=== PATIENT | female | born 1965 | race Caucasian/White ===

== ENCOUNTER 2017-06-01 20:09 | Emergency (ER) | payer MEDICAID ==
[~2017-06-01] VITALS: Ht 157.5 cm; Wt 58.0 kg
[~2017-06-01 20:09] MED LIST: CEPH500C5 PO; CLIN-79 PO; DEXT15SY PO; HYDR-569 PO; IBUP-1985 PO; INDO25CA PO; NAPR500T6 PO; ONDA4TAB6 PO
[2017-06-01] MEDS ORDERED: ondansetron/PF 4mg/2ml inj IM ONE (20:55)
[2017-06-01] MEDS ORDERED: HYDR-569 PO (20:57)
[2017-06-01] MEDS ORDERED: IBUP-1984 PO (20:59)
[2017-06-01] MEDS ORDERED: BUPIVAcaine/PF 7.5mg/ml (0.75%) 10ml vial IJ ONE (21:10)
[2017-06-01] MEDS ORDERED: BUPIVAcaine/PF 2.5mg/ml (0.25%) 10ml vial IJ ONE (21:40)
[2017-06-01 22:13] VITALS: BP 145/88
== END 2017-06-01 22:15 | disposition home or self-care (01) ==
LOC: ER 20:10
DX: K04.7 Periapical abscess without sinus (principal); G43.909 Migraine, unspecified, not intractable, without status migrainosus; E11.9 Type 2 diabetes mellitus without complications; F12.10 Cannabis abuse, uncomplicated; F15.10 Other stimulant abuse, uncomplicated; F17.200 Nicotine dependence, unspecified, uncomplicated; Z59.0 Homelessness; Z86.14 Personal history of Methicillin resistant Staphylococcus aureus infection
CPT/HCPCS: 64400; 96372; 99284; J2270; J2405; J3490

== ENCOUNTER 2018-02-02 17:11 | Emergency (ER) | payer MEDICAID ==
[~2018-02-02] VITALS: Ht 162.6 cm; Wt 63.0 kg
[~2018-02-02 17:11] MED LIST changes: +BISA-155 PO; -CLIN-79 PO; +CLIN150C8 PO; -INDO25CA PO; +INDO25CA18 PO; +MAGN296S50 PO; +POLY119P2 PO
[2018-02-02] MEDS ORDERED: normal saline 1000ML IV soln IVB ONE (19:35)
[2018-02-02 20:05] LABS: BASOPHILS % (AUTO) 0.3 % (0-1); EOSINOPHILS # (AUTO) 0.2 X10'3 (0-0.9); EOSINOPHILS % (AUTO) 2.3 % (0-6); HEMATOCRIT 33.2 % (35.0-45.0); HEMOGLOBIN 11.4 g/dl (12.0-16.0); LYMPHOCYTES # (AUTO) 2.4 X10'3 (1.1-4.8); LYMPHOCYTES % (AUTO) 27.5 % (21-51); MEAN CORPUSCULAR HEMOGLOBIN 31.2 PG (27.0-31.0); MEAN CORPUSCULAR HGB CONC 34.5 % (33.0-36.5); MEAN CORPUSCULAR VOLUME 90.4 FL (78-98); MEAN PLATELET VOLUME 8.1 FL (7.4-10.4); MONOCYTES % (AUTO) 11.3 % (2-12); NEUTROPHILS # (AUTO) 5.1 X10'3 (1.8-7.7); NEUTROPHILS % (AUTO) 58.6 % (42-75); PLATELET COUNT 131 X10'3 (140-440); RED BLOOD COUNT 3.67 X10'6 (4.20-5.60); RED CELL DISTRIBUTION WIDTH 13.6 % (11.5-14.5); WHITE BLOOD COUNT 8.8 X10'3 (4.5-11.0)
[2018-02-02 20:17] LABS: INR 1.1 INR; PARTIAL THROMBOPLASTIN TIME 32 SECONDS (22-32); PROTHROMBIN TIME 11.2 SECONDS (9.0-12.0)
[2018-02-02 20:17] LABS: URINE HCG NEGATIVE (NEG)
[2018-02-02 20:27] LABS: CLARITY,URINE SLIGHTLY CLOUDY (Clear); COLOR,URINE YELLOW (Yellow); GLUCOSE, URINE NEGATIVE (Neg); KETONES,URINE NEGATIVE (Neg); LEUKOCYTE ESTERASE ,URINE TRACE (Neg); NITRITES, URINE POSITIVE (Neg); OCCULT BLOOD,URINE TRACE-INTACT (Neg); PH,URINE 7.5 (4.8-8.0); PROTEIN,URINE NEGATIVE (Neg)
[2018-02-02 20:31] LABS: URINE AMPHETAMINE SCREEN POSITIVE (Neg); URINE BARBITUATE SCREEN NEGATIVE (Neg); URINE BENZODIAZEPINES SCREEN NEGATIVE (Neg); URINE CANNABINOID SCREEN POSITIVE (Neg); URINE COCAINE SCREEN NEGATIVE (Neg); URINE METHADONE SCREEN NEGATIVE (Neg); URINE OPIATE SCREEN NEGATIVE (Neg); URINE PHENCYCLIDINE SCREEN NEGATIVE (Neg)
[2018-02-02 20:32] LABS: ALANINE AMINOTRANSFERASE 84 U/L (12-78); ALBUMIN 2.7 G/DL (3.4-5.0); ALBUMIN/GLOBULIN RATIO 0.7 (1.1-1.5); ALKALINE PHOSPHATASE 94 IU/L (46-116); ANION GAP 8 (8-16); ASPARTATE AMINO TRANSFERASE 70 U/L (10-37); BILIRUBIN,TOTAL 0.5 MG/DL (0.1-1.0); BLOOD UREA NITROGEN 8 MG/DL (7-18); BUN/CREATININE RATIO 13.1 (6.6-38.0); CALCIUM 7.6 MG/DL (8.5-10.1); CHLORIDE 103 MMOL/L (99-107); CREATININE 0.61 MG/DL (0.40-0.90); GLUCOSE 138 MG/DL (70-104); LIPASE 234 U/L (73-393); MAGNESIUM 1.6 MG/DL (1.5-2.4); POTASSIUM 3.7 MMOL/L (3.5-5.1); SODIUM 135 MMOL/L (135-145); TOTAL CARBON DIOXIDE 24.4 MMOL/L (24-32); TOTAL PROTEIN 6.8 G/DL (6.4-8.2); eGFR > 90 ML/MIN
[2018-02-02 20:46] LABS: UA COLLECTION TYPE CLN CATCH MIDSTREAM
[2018-02-02 20:50] LABS: RBC,URINE 0-2 /HPF (0-2)
[2018-02-02 20:51] LABS: BACTERIA,URINE 4+ /HPF (Neg); SQUAMOUS EPITHELIAL CELL,UR MODERATE /LPF (FEW)
[2018-02-02] MEDS ORDERED: NITR100C6 PO (20:57)
[2018-02-02] MEDS ORDERED: IBUP-1984 PO (20:57)
[2018-02-02 21:34] VITALS: BP 143/90
== END 2018-02-02 21:46 | disposition home or self-care (01) ==
LOC: ER 17:11
DX: N39.0 Urinary tract infection, site not specified (principal); F15.90 Other stimulant use, unspecified, uncomplicated; G43.909 Migraine, unspecified, not intractable, without status migrainosus; E11.9 Type 2 diabetes mellitus without complications; M19.90 Unspecified osteoarthritis, unspecified site; G89.29 Other chronic pain; Z86.14 Personal history of Methicillin resistant Staphylococcus aureus infection; F12.90 Cannabis use, unspecified, uncomplicated; Z79.2 Long term (current) use of antibiotics; Z79.899 Other long term (current) drug therapy; Z59.0 Homelessness; Z56.0 Unemployment, unspecified
CPT/HCPCS: 36415; 71045; 71046; 80053; 80305; 81001; 81025; 83605; 83690; 83735; 84145; 85025; 85610; 85730; 87040; 87077; 87088; 87186; 93005; 96360; 96361; 99285; J7030

== ENCOUNTER 2019-01-10 21:16 | Emergency (ER) | payer MEDICAID ==
[~2019-01-10] VITALS: Ht 162.6 cm; Wt 60.9 kg
[~2019-01-10 21:16] MED LIST changes: -CEPH500C5 PO; +HYDR-4383 PO; -HYDR-569 PO; +INDO-12 PO; -INDO25CA18 PO; +NITR100C6 PO
[2019-01-10] MEDS ORDERED: LIDOcaine 1% 30ml preserv. free vial IJ ONE (22:00)
[2019-01-10] MEDS ORDERED: LORazepam 2 mg/ml vial IM ONE (22:00)
[2019-01-10] MEDS ORDERED: bacitracin 15gm ointment TP ONE (22:00)
[2019-01-10] MEDS ORDERED: HYDROcodone/acetaminophen 5mg/325mg tablet PO ONE (22:00)
[2019-01-10] MEDS ORDERED: TETanus/Pertussis (Acell)/Diphther VAC/PF (Tdap-Adult) 0.5ml syringe IM ONE (22:00)
[2019-01-10] MEDS ORDERED: rabies immune globulin/PF 150 unit/ml inj IM ONE (22:30)
[2019-01-10] MEDS ORDERED: rabies vaccine (PCEC)/PF 2.5 unit kit IM ONE (22:30)
--- NOTE | 2019-01-10 22:45 | NUR ---
Patient arrived to ED by POV driven by friend. Stated that she was bitten by a dog "by [place]" @ aprox 2130 the patient was swimming in the area. Injuries to the right hand. The dog is unkown to the patient, she does not know if it is a stray or not. No further information given. Patient was extremely upset, crying out in pain not providing detailed information. Unable to hold still to allow for thourough exam of right hand. Patient given ativan per MD order.
[2019-01-10] MEDS ORDERED: HYDR-4383 PO (23:04)
[2019-01-10] MEDS ORDERED: AMOX-419 PO (23:04)
--- NOTE | 2019-01-10 23:40 | NUR ---
Patient has been treated per MD order, but it not awake or alert enough for discharge at this time. Patient is on med hold until able to safely discharge.
[2019-01-11 06:26] VITALS: BP 164/100
== END 2019-01-11 08:00 | disposition home or self-care (01) ==
LOC: ER 21:16
DX: S61.431A Puncture wound without foreign body of right hand, initial encounter (principal); S61.451A Open bite of right hand, initial encounter; G43.909 Migraine, unspecified, not intractable, without status migrainosus; E11.9 Type 2 diabetes mellitus without complications; M19.90 Unspecified osteoarthritis, unspecified site; G89.29 Other chronic pain; F12.90 Cannabis use, unspecified, uncomplicated; F15.90 Other stimulant use, unspecified, uncomplicated; Z59.0 Homelessness; Z56.0 Unemployment, unspecified; Z98.890 Other specified postprocedural states; Z86.14 Personal history of Methicillin resistant Staphylococcus aureus infection; Z79.899 Other long term (current) drug therapy; W54.0XXA Bitten by dog, initial encounter; Y93.89 Activity, other specified; Y92.89 Other specified places as the place of occurrence of the external cause; Y99.9 Unspecified external cause status
CPT/HCPCS: 29125; 73130; 90375; 90471; 90472; 90675; 96372; 99283; J2001; J2060

== ENCOUNTER 2019-05-09 08:02 | Emergency (ER) | payer MEDICAID ==
[~2019-05-09] VITALS: Ht 162.6 cm; Wt 57.8 kg
[2019-05-09] MEDS ORDERED: ketorolac tromethamine 15mg/ml inj. IM ONE (08:50)
[2019-05-09] MEDS ORDERED: triamcinolone acetonide 40mg/ml inj IM ONE (08:50)
[2019-05-09] MEDS ORDERED: MUPI22OI30 TOP (09:03)
[2019-05-09] MEDS ORDERED: HYDR28CR14 TOP (09:03)
[2019-05-09] MEDS ORDERED: IBUP-1985 PO (09:09)
[2019-05-09] MEDS ORDERED: ACET-2144 PO (09:09)
[2019-05-09 09:14] VITALS: BP 123/65
--- NOTE | 2019-05-09 09:21 | NUR ---
ADMINISTER MEDICATIONS ORDERED. PT CLEARED FOR DC. GIVEN PHONE TO CALL FOR RIDE AND TWO SACK LUNCHES.
== END 2019-05-09 09:25 | disposition home or self-care (01) ==
LOC: ER 08:03
DX: L23.7 Allergic contact dermatitis due to plants, except food (principal); K08.89 Other specified disorders of teeth and supporting structures; G43.909 Migraine, unspecified, not intractable, without status migrainosus; E11.9 Type 2 diabetes mellitus without complications; M19.90 Unspecified osteoarthritis, unspecified site; G89.29 Other chronic pain; F12.90 Cannabis use, unspecified, uncomplicated; F15.90 Other stimulant use, unspecified, uncomplicated; F10.99 Alcohol use, unspecified with unspecified alcohol-induced disorder; Z86.14 Personal history of Methicillin resistant Staphylococcus aureus infection; Z86.19 Personal history of other infectious and parasitic diseases; Z59.0 Homelessness; Z56.0 Unemployment, unspecified; Z79.899 Other long term (current) drug therapy; Y90.9 Presence of alcohol in blood, level not specified
CPT/HCPCS: 96372; 99283; J1885; J3301

== ENCOUNTER 2019-06-04 01:03 | Emergency (ER) | payer MEDICAID ==
[~2019-06-04] VITALS: Ht 162.6 cm; Wt 60.0 kg
[~2019-06-04 01:03] MED LIST changes: +HYDR28CR14 TOP; -MAGN296S50 PO; +MAGN296S70 PO
[2019-06-04 01:10] VITALS: BP 155/87
[2019-06-04] MEDS ORDERED: LIDOcaine 1% w/epiNEPHrine 1:200,000 30ml vial SQ ONE (03:20)
[2019-06-04] MEDS ORDERED: SULF1TAB49 PO (03:29)
[2019-06-04] MEDS ORDERED: acetaminophen 325mg tablet PO ONE (04:00)
== END 2019-06-04 04:16 | disposition home or self-care (01) ==
LOC: ER 01:05
DX: L02.811 Cutaneous abscess of head [any part, except face] (principal); L03.811 Cellulitis of head [any part, except face]; G43.909 Migraine, unspecified, not intractable, without status migrainosus; E11.9 Type 2 diabetes mellitus without complications; G89.29 Other chronic pain; M19.90 Unspecified osteoarthritis, unspecified site; F10.99 Alcohol use, unspecified with unspecified alcohol-induced disorder; F12.90 Cannabis use, unspecified, uncomplicated; F15.90 Other stimulant use, unspecified, uncomplicated; Z86.19 Personal history of other infectious and parasitic diseases; Z86.14 Personal history of Methicillin resistant Staphylococcus aureus infection; Z59.0 Homelessness; Z56.0 Unemployment, unspecified; Z79.899 Other long term (current) drug therapy; Y90.9 Presence of alcohol in blood, level not specified
CPT/HCPCS: 10060; 99283

== ENCOUNTER 2019-07-25 17:25 | Emergency (ER) | payer MEDICAID ==
[~2019-07-25] VITALS: Ht 162.6 cm; Wt 60.0 kg
[2019-07-25 18:16] LABS: CLARITY,URINE CLOUDY (Clear); COLOR,URINE YELLOW (Yellow); GLUCOSE, URINE 250 mg/dl (Neg); KETONES,URINE NEGATIVE (Neg); LEUKOCYTE ESTERASE ,URINE TRACE (Neg); NITRITES, URINE POSITIVE (Neg); OCCULT BLOOD,URINE NEGATIVE (Neg); PH,URINE 6.5 (4.8-8.0); PROTEIN,URINE NEGATIVE (Neg)
[2019-07-25 18:18] LABS: BASOPHILS # (AUTO) 0.1 X10'3 (0-0.2); BASOPHILS % (AUTO) 1.4 % (0-1); EOSINOPHILS # (AUTO) 0.1 X10'3 (0-0.9); EOSINOPHILS % (AUTO) 2.8 % (0-6); HEMATOCRIT 42.6 % (35.0-45.0); HEMOGLOBIN 14.7 g/dl (12.0-16.0); LYMPHOCYTES # (AUTO) 1.8 X10'3 (1.1-4.8); LYMPHOCYTES % (AUTO) 36.1 % (21-51); MEAN CORPUSCULAR HEMOGLOBIN 32.1 PG (27.0-31.0); MEAN CORPUSCULAR HGB CONC 34.6 g/dL (33.0-36.5); MEAN CORPUSCULAR VOLUME 92.8 FL (78-98); MEAN PLATELET VOLUME 8.7 FL (7.4-10.4); MONOCYTES # (AUTO) 0.4 X10'3 (0-0.9); MONOCYTES % (AUTO) 7.8 % (2-12); NEUTROPHILS # (AUTO) 2.5 X10'3 (1.8-7.7); NEUTROPHILS % (AUTO) 51.9 % (42-75); PLATELET COUNT 88 X10'3 (140-440); RED BLOOD COUNT 4.59 X10'6 (4.20-5.60); RED CELL DISTRIBUTION WIDTH 14.4 % (11.5-14.5); WHITE BLOOD COUNT 4.9 X10'3 (4.5-11.0)
[2019-07-25 18:23] LABS: UA COLLECTION TYPE CLN CATCH MIDSTREAM
[2019-07-25 18:27] LABS: BACTERIA,URINE 4+ /HPF (Neg); MUCUS STRANDS FEW /LPF (Neg); RBC,URINE 0-2 /HPF (0-2); SQUAMOUS EPITHELIAL CELL,UR MODERATE /LPF (FEW); WBC CLUMPS,URINE FEW /HPF (NEGATIVE)
[2019-07-25 18:28] LABS: ALANINE AMINOTRANSFERASE 258 U/L (12-78); ALBUMIN 3.3 G/DL (3.4-5.0); ALBUMIN/GLOBULIN RATIO 0.8 (1.1-1.5); ALKALINE PHOSPHATASE 131 IU/L (46-116); ANION GAP 8 (8-16); ASPARTATE AMINO TRANSFERASE 220 U/L (10-37); BILIRUBIN,TOTAL 0.7 MG/DL (0.1-1.0); BLOOD UREA NITROGEN 10 MG/DL (7-18); BUN/CREATININE RATIO 14.7 (6.6-38.0); CALCIUM 8.8 MG/DL (8.5-10.1); CHLORIDE 105 MMOL/L (99-107); CREATININE 0.68 MG/DL (0.40-0.90); GLUCOSE 256 MG/DL (70-104); LIPASE 204 U/L (73-393); POTASSIUM 3.9 MMOL/L (3.5-5.1); SODIUM 140 MMOL/L (135-145); TOTAL CARBON DIOXIDE 27.3 MMOL/L (24-32); TOTAL PROTEIN 7.5 G/DL (6.4-8.2); eGFR > 90 ML/MIN
[2019-07-25 18:41] LABS: LARGE PLATELETS FEW; PLATELET ESTIMATE DECREASED
[2019-07-25] MEDS ORDERED: CefTRIAXone 1000mg IM Kit (w/lidocaine diluent) IM ONE (19:30)
[2019-07-25] MEDS ORDERED: CefTRIAXone 250MG IM Kit w/LIDOcaine IM ONE (19:35)
[2019-07-25] MEDS ORDERED: SULF1TAB49 PO (19:35)
[2019-07-25 20:07] VITALS: BP 156/98
== END 2019-07-25 20:01 | disposition home or self-care (01) ==
LOC: ER 17:26
DX: N39.0 Urinary tract infection, site not specified (principal); G43.909 Migraine, unspecified, not intractable, without status migrainosus; E11.9 Type 2 diabetes mellitus without complications; M19.90 Unspecified osteoarthritis, unspecified site; F17.200 Nicotine dependence, unspecified, uncomplicated; F12.90 Cannabis use, unspecified, uncomplicated; F15.90 Other stimulant use, unspecified, uncomplicated; Z86.14 Personal history of Methicillin resistant Staphylococcus aureus infection; Z86.19 Personal history of other infectious and parasitic diseases; Z59.0 Homelessness; Z56.0 Unemployment, unspecified; Z98.890 Other specified postprocedural states; Z79.899 Other long term (current) drug therapy
CPT/HCPCS: 36415; 80053; 81001; 83690; 85025; 87088; 96372; 99283; J0696; 87077; 87186

== ENCOUNTER 2020-02-18 21:54 | Emergency (ER) | payer MEDICAID ==
[~2020-02-18] VITALS: Ht 162.6 cm; Wt 60.0 kg
[2020-02-18 22:02] VITALS: BP 154/93
[2020-02-18 22:44] LABS: CLARITY,URINE SLIGHTLY CLOUDY (Clear); GLUCOSE, URINE NEGATIVE (Neg); KETONES,URINE NEGATIVE (Neg); LEUKOCYTE ESTERASE ,URINE SMALL (Neg); NITRITES, URINE POSITIVE (Neg); OCCULT BLOOD,URINE TRACE-INTACT (Neg); PH,URINE 6.5 (4.8-8.0); PROTEIN,URINE NEGATIVE (Neg); UROBILINOGEN,URINE >=8.0 E.U/dL (0.2-1.0)
[2020-02-18 22:52] LABS: COLOR,URINE DARK YELLOW (Yellow); UA COLLECTION TYPE NON-SPECIFIED
[2020-02-18 22:53] LABS: BACTERIA,URINE 4+ /HPF (Neg); RBC,URINE 0-2 /HPF (0-2); WBC,URINE 20-30 /HPF (0-4)
[2020-02-18 22:54] LABS: MUCUS STRANDS MODERATE /LPF (Neg); SQUAMOUS EPITHELIAL CELL,UR FEW /LPF (FEW); WBC CLUMPS,URINE FEW /HPF (NEGATIVE)
[2020-02-18] MEDS ORDERED: ACET-3068 PO (22:54)
== END 2020-02-18 23:37 | disposition home or self-care (01) ==
LOC: ER 21:54
DX: S30.814A Abrasion of vagina and vulva, initial encounter (principal); K02.9 Dental caries, unspecified; E11.9 Type 2 diabetes mellitus without complications; M19.90 Unspecified osteoarthritis, unspecified site; G89.29 Other chronic pain; F17.200 Nicotine dependence, unspecified, uncomplicated; F12.90 Cannabis use, unspecified, uncomplicated; F15.90 Other stimulant use, unspecified, uncomplicated; Z86.19 Personal history of other infectious and parasitic diseases; Z86.14 Personal history of Methicillin resistant Staphylococcus aureus infection; Z98.890 Other specified postprocedural states; Z59.0 Homelessness; Z56.0 Unemployment, unspecified; W45.8XXA Other foreign body or object entering through skin, initial encounter; Y93.89 Activity, other specified; Y92.89 Other specified places as the place of occurrence of the external cause; Y99.8 Other external cause status
CPT/HCPCS: 81001; 87088; 99283

== ENCOUNTER 2020-03-31 04:43 | Emergency (ER) | payer MEDICAID ==
[~2020-03-31] VITALS: Ht 162.6 cm; Wt 58.7 kg
[2020-03-31] MEDS ORDERED: proCHLORperazine 10 MG/2 ml inj IV ONE (05:50)
[2020-03-31] MEDS ORDERED: normal saline 1000ml 1,000 ML IV ONE (05:50)
[2020-03-31] MEDS ORDERED: morphine 4 MG/ML inj SYRINge IV ONE (05:50)
[2020-03-31] MEDS ORDERED: clindamycin 600mg/D5W 50ml 50 ML IV ONE (05:55)
[2020-03-31] MEDS ORDERED: levoFLOXACIN-Levaquin 750MG/D5 150 ML IV STA (05:55)
[2020-03-31 06:38] VITALS: BP 132/71
[2020-03-31 07:07] LABS: BASOPHILS % (AUTO) 0.4 % (0-1); EOSINOPHILS # (AUTO) 0.2 X10'3 (0-0.9); EOSINOPHILS % (AUTO) 3.2 % (0-6); HEMATOCRIT 35.6 % (35.0-45.0); HEMOGLOBIN 12.3 g/dl (12.0-16.0); LYMPHOCYTES # (AUTO) 1.4 X10'3 (1.1-4.8); LYMPHOCYTES % (AUTO) 26.1 % (21-51); MEAN CORPUSCULAR HEMOGLOBIN 32.4 PG (27.0-31.0); MEAN CORPUSCULAR HGB CONC 34.5 g/dL (33.0-36.5); MEAN CORPUSCULAR VOLUME 93.9 FL (78-98); MEAN PLATELET VOLUME 8.8 FL (7.4-10.4); MONOCYTES # (AUTO) 0.6 X10'3 (0-0.9); MONOCYTES % (AUTO) 10.2 % (2-12); NEUTROPHILS # (AUTO) 3.3 X10'3 (1.8-7.7); NEUTROPHILS % (AUTO) 60.1 % (42-75); PLATELET COUNT 76 X10'3 (140-440); RED BLOOD COUNT 3.79 X10'6 (4.20-5.60); RED CELL DISTRIBUTION WIDTH 13.7 % (11.5-14.5); WHITE BLOOD COUNT 5.5 X10'3 (4.5-11.0)
[2020-03-31] MEDS ORDERED: iohexol 300mg/ml 100ml inj. ONE (07:07)
[2020-03-31 07:17] LABS: ALANINE AMINOTRANSFERASE 170 U/L (12-78); ALBUMIN/GLOBULIN RATIO 0.8 (1.1-1.5); ALKALINE PHOSPHATASE 106 IU/L (46-116); ANION GAP 8 (8-16); ASPARTATE AMINO TRANSFERASE 151 U/L (10-37); BILIRUBIN,TOTAL 0.8 MG/DL (0.1-1.0); BLOOD UREA NITROGEN 9 MG/DL (7-18); CALCIUM 8.2 MG/DL (8.5-10.1); CHLORIDE 107 MMOL/L (99-107); CREATININE 0.53 MG/DL (0.40-0.90); GLUCOSE 225 MG/DL (70-104); POTASSIUM 4.1 MMOL/L (3.5-5.1); SODIUM 140 MMOL/L (135-145); TOTAL CARBON DIOXIDE 24.6 MMOL/L (24-32); eGFR > 90 ML/MIN
[2020-03-31 08:53] LABS: CLARITY,URINE CLOUDY (Clear); COLOR,URINE YELLOW (Yellow); GLUCOSE, URINE 250 mg/dl (Neg); KETONES,URINE TRACE mg/dl (Neg); LEUKOCYTE ESTERASE ,URINE SMALL (Neg); NITRITES, URINE NEGATIVE (Neg); OCCULT BLOOD,URINE LARGE (Neg); PROTEIN,URINE 30 mg/dl (Neg); UA COLLECTION TYPE VOIDED
[2020-03-31 08:58] LABS: SQUAMOUS EPITHELIAL CELL,UR MODERATE /LPF (FEW)
[2020-03-31 08:59] LABS: BACTERIA,URINE 4+ /HPF (Neg); RBC,URINE 50-100 /HPF (0-2)
[2020-03-31 09:00] LABS: TRANSITIONAL EPI CELLS,URINE FEW /HPF
== END 2020-03-31 09:40 | disposition home or self-care (01) ==
LOC: ER 04:44
DX: K08.89 Other specified disorders of teeth and supporting structures (principal); G43.909 Migraine, unspecified, not intractable, without status migrainosus; E11.9 Type 2 diabetes mellitus without complications; M19.90 Unspecified osteoarthritis, unspecified site; G89.29 Other chronic pain; F12.90 Cannabis use, unspecified, uncomplicated; F15.90 Other stimulant use, unspecified, uncomplicated; Z86.14 Personal history of Methicillin resistant Staphylococcus aureus infection; Z86.19 Personal history of other infectious and parasitic diseases; Z72.89 Other problems related to lifestyle; Z98.890 Other specified postprocedural states; Z56.0 Unemployment, unspecified; Z59.0 Homelessness; Z79.899 Other long term (current) drug therapy
CPT/HCPCS: 36415; 64400; 70487; 80053; 81001; 83605; 84145; 85025; 87040; 87088; 96365; 96366; 96368; 96375; 99285; J0780; J1956; J2270; J7030; Q9967; 87077; 87186; J3490

== ENCOUNTER 2020-10-02 17:38 | Emergency (ER) | payer MEDICAID ==
[~2020-10-02] VITALS: Ht 162.6 cm; Wt 60.0 kg
[2020-10-02] MEDS ORDERED: ketorolac tromethamine 15mg/ml inj. IM ONE (19:20)
[2020-10-02] MEDS ORDERED: IBUP-1984 PO (19:38)
[2020-10-02] MEDS ORDERED: ACET-890 PO (19:38)
[2020-10-02 19:59] VITALS: BP 135/80
== END 2020-10-02 19:55 | disposition home or self-care (01) ==
LOC: ER 17:40
DX: M25.532 Pain in left wrist (principal); R11.10 Vomiting, unspecified; G43.909 Migraine, unspecified, not intractable, without status migrainosus; E11.9 Type 2 diabetes mellitus without complications; M19.90 Unspecified osteoarthritis, unspecified site; G89.29 Other chronic pain; F12.90 Cannabis use, unspecified, uncomplicated; F15.90 Other stimulant use, unspecified, uncomplicated; Z72.89 Other problems related to lifestyle; Z86.14 Personal history of Methicillin resistant Staphylococcus aureus infection; Z98.890 Other specified postprocedural states; Z56.0 Unemployment, unspecified; Z59.0 Homelessness; Z86.19 Personal history of other infectious and parasitic diseases; Z79.899 Other long term (current) drug therapy
CPT/HCPCS: 29125; 73110; 96372; 99283; J1885

== ENCOUNTER 2021-02-27 10:39 | Emergency (ER) | payer MEDICAID ==
[~2021-02-27] VITALS: Ht 162.6 cm; Wt 54.5 kg
[2021-02-27 11:07] VITALS: BP 144/86
[2021-02-27] MEDS ORDERED: BUDE180A INH (11:42)
== END 2021-02-27 12:10 | disposition home or self-care (01) ==
LOC: ER 10:39
DX: B34.9 Viral infection, unspecified (principal); Z20.822 Contact with and (suspected) exposure to COVID-19; G43.909 Migraine, unspecified, not intractable, without status migrainosus; E11.9 Type 2 diabetes mellitus without complications; G89.29 Other chronic pain; M19.90 Unspecified osteoarthritis, unspecified site; F12.90 Cannabis use, unspecified, uncomplicated; F15.90 Other stimulant use, unspecified, uncomplicated; Z56.0 Unemployment, unspecified; Z59.00 Homelessness unspecified; Z72.89 Other problems related to lifestyle; Z98.891 History of uterine scar from previous surgery; Z86.14 Personal history of Methicillin resistant Staphylococcus aureus infection; Z79.2 Long term (current) use of antibiotics; Z79.899 Other long term (current) drug therapy
CPT/HCPCS: 36415; 71045; 99284; U0003; U0005

== ENCOUNTER 2021-11-05 09:59 | Emergency (ER) | payer MEDICAID ==
[~2021-11-05] VITALS: Ht 162.6 cm; Wt 60.0 kg
[~2021-11-05 09:59] MED LIST changes: +BUDE180A INH
[2021-11-05 10:20] VITALS: BP 111/72
[2021-11-05 12:34] LABS: BASOPHILS % (AUTO) 0.4 % (0-1); EOSINOPHILS # (AUTO) 0.1 X10'3 (0-0.9); HEMATOCRIT 39.9 % (35.0-45.0); HEMOGLOBIN 13.5 g/dl (12.0-16.0); LYMPHOCYTES # (AUTO) 1.1 X10'3 (1.1-4.8); LYMPHOCYTES % (AUTO) 21.5 % (21-51); MEAN CORPUSCULAR HEMOGLOBIN 30.4 PG (27.0-31.0); MEAN CORPUSCULAR HGB CONC 33.8 g/dL (33.0-36.5); MEAN CORPUSCULAR VOLUME 89.9 FL (78-98); MEAN PLATELET VOLUME 8.3 FL (7.4-10.4); MONOCYTES # (AUTO) 0.3 X10'3 (0-0.9); MONOCYTES % (AUTO) 5.8 % (2-12); NEUTROPHILS # (AUTO) 3.7 X10'3 (1.8-7.7); NEUTROPHILS % (AUTO) 70.3 % (42-75); PLATELET COUNT 86 X10'3 (140-440); RED BLOOD COUNT 4.43 X10'6 (4.20-5.60); RED CELL DISTRIBUTION WIDTH 14.5 % (11.5-14.5); WHITE BLOOD COUNT 5.2 X10'3 (4.5-11.0)
[2021-11-05 12:52] LABS: ALANINE AMINOTRANSFERASE 145 U/L (12-78); ALBUMIN/GLOBULIN RATIO 0.7 (1.1-1.5); ALKALINE PHOSPHATASE 104 IU/L (46-116); ANION GAP 9 (8-16); ASPARTATE AMINO TRANSFERASE 107 U/L (10-37); BILIRUBIN,TOTAL 1.4 MG/DL (0.1-1.0); BLOOD UREA NITROGEN 12 MG/DL (7-18); BUN/CREATININE RATIO 21.4 (6.6-38.0); CHLORIDE 106 MMOL/L (99-107); CREATININE 0.56 MG/DL (0.40-0.90); GLUCOSE 160 MG/DL (70-104); POTASSIUM 3.9 MMOL/L (3.5-5.1); SODIUM 138 MMOL/L (135-145); TOTAL CARBON DIOXIDE 23.4 MMOL/L (24-32); TOTAL PROTEIN 7.1 G/DL (6.4-8.2); eGFR > 90 ML/MIN
[2021-11-05 15:12] LABS: CLARITY,URINE TURBID (Clear); COLOR,URINE YELLOW (Yellow); GLUCOSE, URINE NEGATIVE (Neg); KETONES,URINE NEGATIVE (Neg); LEUKOCYTE ESTERASE ,URINE MODERATE (Neg); NITRITES, URINE POSITIVE (Neg); OCCULT BLOOD,URINE TRACE-INTACT (Neg); PROTEIN,URINE 30 mg/dl (Neg); UROBILINOGEN,URINE >=8.0 E.U/dL (0.2-1.0)
[2021-11-05 15:14] LABS: UA COLLECTION TYPE NON-SPECIFIED
[2021-11-05 15:15] LABS: BACTERIA,URINE 3+ /HPF (Neg); SQUAMOUS EPITHELIAL CELL,UR MANY /LPF (FEW)
[2021-11-05 15:16] LABS: RBC,URINE 0-2 /HPF (0-2)
[2021-11-05] MEDS ORDERED: CEPH500C82 PO (16:04)
[2021-11-05] MEDS ORDERED: CEFTRIAXONE 500 MG VIAL IM ONE (16:05)
[2021-11-05] MEDS ORDERED: CefTRIAXone 1000mg IM Kit (w/lidocaine diluent) IM ONE (16:10)
--- NOTE | 2021-11-05 16:51 | NUR ---
Entered patients room several times to explain to patient that we need UA, resident was non compliant and continued to sleep. Finally patient woke up to give us UA, viewed results and new order for rocephin and for patient to be sent home with keflex, entered patients room and explained to her that MD ordered IM rocephin and we will be discharging her with keflex. Patient demanded a sandwich and said she needed a taxi, this nurse stated we are all out of sandwiches on this floor and gave her a bus pass. Patient stated she cannot leave and she cannot take the bus home that she specifically needs a taxi, she needs a night gown, then proceeded to stand up and start yelling at this nurse demanding to speak to a registered nurse supervisor and states that this hospital is a "P[facility] of shit hospital." Patient stated she cannot walk as she walked around nurses station and continued to yell at nurse stating nurse is "stupid and a "Piece of shit" Then patient demanded to have the bus pass and that she was leaving. This nurse said that we still need to give her a rocephin IM and she needs her discharge paperwork and meds. Patient stated "I don't want anything from you guys, you are a piece of shit." education was provided to resident about refusing medications. PA entered room to further explain and provide patient education. Patient continued to yell and call staff names, was walked out by PA, and continued to refuse all treatment.
== END 2021-11-05 16:50 | disposition home or self-care (01) ==
LOC: ER 09:59
DX: N39.0 Urinary tract infection, site not specified (principal); M79.18 Myalgia, other site; G43.909 Migraine, unspecified, not intractable, without status migrainosus; E11.9 Type 2 diabetes mellitus without complications; M19.90 Unspecified osteoarthritis, unspecified site; F12.90 Cannabis use, unspecified, uncomplicated; F15.90 Other stimulant use, unspecified, uncomplicated; Z86.14 Personal history of Methicillin resistant Staphylococcus aureus infection; Z72.89 Other problems related to lifestyle; Z98.890 Other specified postprocedural states; Z59.00 Homelessness unspecified; Z56.0 Unemployment, unspecified; Z86.19 Personal history of other infectious and parasitic diseases; Z79.899 Other long term (current) drug therapy
CPT/HCPCS: 36415; 80053; 81001; 85025; 99284

== ENCOUNTER 2022-05-27 01:26 | Emergency (ER) | payer MEDICAID ==
[~2022-05-27] VITALS: Ht 162.6 cm; Wt 58.0 kg
[~2022-05-27 01:26] MED LIST changes: -MAGN296S70 PO; +MAGN296S89 PO
[2022-05-27 02:01] VITALS: BP 157/87
[2022-05-27] MEDS ORDERED: amox tr/potassium clavulanate 875/125mg TAB PO ONE (02:35)
[2022-05-27] MEDS ORDERED: AMOX-117 PO (02:37)
[2022-05-27] MEDS ORDERED: ibuprofen tablet 400 MG TABLET PO ONE (02:55)
[2022-05-27] MEDS ORDERED: acetaminophen 325mg tablet PO ONE (02:55)
== END 2022-05-27 03:05 | disposition home or self-care (01) ==
LOC: ER 01:27
DX: S71.151A Open bite, right thigh, initial encounter (principal); G43.909 Migraine, unspecified, not intractable, without status migrainosus; E11.9 Type 2 diabetes mellitus without complications; M19.90 Unspecified osteoarthritis, unspecified site; G89.29 Other chronic pain; F12.90 Cannabis use, unspecified, uncomplicated; F15.20 Other stimulant dependence, uncomplicated; W54.0XXA Bitten by dog, initial encounter; Y93.89 Activity, other specified; Y92.89 Other specified places as the place of occurrence of the external cause; Y99.8 Other external cause status
CPT/HCPCS: 99284; J7030; A6258; A6446; A6449

== ENCOUNTER 2023-07-10 14:13 | Inpatient (IN) | payer MEDICAID ==
[~2023-07-10] VITALS: Ht 162.6 cm; Wt 52.0 kg
[~2023-07-10 14:13] MED LIST changes: +CLIN-214 PO; -CLIN150C8 PO
[2023-07-10 15:03] LABS: BASOPHILS # (AUTO) 0.1 X10'3 (0-0.2); EOSINOPHILS # (AUTO) 0.3 X10'3 (0-0.9); HEMOGLOBIN 12.6 g/dl (12.0-16.0); LYMPHOCYTES # (AUTO) 1.8 X10'3 (1.1-4.8); MEAN CORPUSCULAR HEMOGLOBIN 31.4 PG (27.0-31.0); MONOCYTES # (AUTO) 0.8 X10'3 (0-0.9); NEUTROPHILS # (AUTO) 5.9 X10'3 (1.8-7.7); RED BLOOD COUNT 4.02 X10'6 (4.20-5.60)
[2023-07-10 15:07] LABS: BASOPHILS % (AUTO) 0.6 % (0-1); EOSINOPHILS % (AUTO) 3.5 % (0-6); HEMATOCRIT 36.9 % (35.0-45.0); LYMPHOCYTES % (AUTO) 20.7 % (21-51); MEAN CORPUSCULAR HGB CONC 34.2 g/dL (33.0-36.5); MEAN CORPUSCULAR VOLUME 91.6 FL (78-98); MONOCYTES % (AUTO) 8.9 % (2-12); NEUTROPHILS % (AUTO) 66.3 % (42-75); PLATELET COUNT 76 X10'3 (140-440); RED CELL DISTRIBUTION WIDTH 14.5 % (11.5-14.5); WHITE BLOOD COUNT 8.9 X10'3 (4.5-11.0)
[2023-07-10 15:30] LABS: ALBUMIN 2.7 G/DL (3.4-5.0); ANION GAP 11 (8-16); BLOOD UREA NITROGEN 7 MG/DL (7-18); CALCIUM 7.7 MG/DL (8.5-10.1); CHLORIDE 107 MMOL/L (99-107); GLUCOSE 226 MG/DL (70-104); POTASSIUM 3.9 MMOL/L (3.5-5.1); PRO BRAIN NATRIURETIC PEPTIDE 198 PG/ML (0-125); SODIUM 139 MMOL/L (135-145); TOTAL CARBON DIOXIDE 21.5 MMOL/L (24-32); eCRCL 108 ML/MIN; eGFR > 90 ML/MIN
[2023-07-10] MEDS: ondansetron 4mg rapidly disintigrating tab PO ONE (16:22)
[2023-07-10] MEDS: normal saline 1000ml 1,000 ML IV ONE (16:23)
[2023-07-10] MEDS: morphine 2 MG/ML inj. syringe IV ONE (16:23)
[2023-07-10] MEDS ORDERED: acetaminophen 325mg tablet PO PRN (20:10)
[2023-07-10] MEDS ORDERED: ondansetron/PF 4mg/2ml inj IV PRN (20:10)
[2023-07-10] MEDS ORDERED: potassium Cl 40MEQ/1/2NS 520ml 520 ML IV PRN (20:10)
[2023-07-10] MEDS ORDERED: magnesium 4gm in 100ml NS 100 ML IV PRN (20:10)
[2023-07-10] MEDS ORDERED: magnesium hydroxide 30ml (MOM) UD suspension PO PRN (20:10)
[2023-07-10] MEDS ORDERED: potassium Cl 20 mEq SR tablet PO PRN ×2 (20:10)
[2023-07-10] MEDS ORDERED: mag hydrox/Alum hydrox/simeth 30ml oral suspension PO PRN (20:10)
[2023-07-10] MEDS ORDERED: glucagon, human recombinant 1mg kit SUBCUT PRN (20:30)
[2023-07-10] MEDS ORDERED: guaiFENesin/DM/phenylephrine syrup 120ml bottle PO PRN (20:30)
[2023-07-10] MEDS ORDERED: dextrose 50%-water 50ml dispensing syringe IV PRN ×2 (20:30)
[2023-07-10] MEDS ORDERED: DEXTROSE 15 GM of carb/4 tabs (each vial/BOTTLE has 4 tablets) PO PRN ×2 (20:30)
[2023-07-10] MEDS: MESSAGE TO PHARMACY PO ONE (20:39)
[2023-07-10] MEDS: normal saline 1000ml 1,000 ML IV SCH (20:57)
[2023-07-10] MEDS: pantoprazole 40 MG vial IV STA (20:59)
[2023-07-10] MEDS: insulin glargine (Lantus) pen - multi-dose SQ SCH (21:00)
[2023-07-10 21:06] LABS: HEMOGLOBIN A1C 9.8 % (4.5-6.2)
[2023-07-10 21:09] LABS: HEMATOCRIT 34.3 % (35.0-45.0); HEMOGLOBIN 11.8 g/dl (12.0-16.0); MEAN CORPUSCULAR HEMOGLOBIN 31.7 PG (27.0-31.0); MEAN CORPUSCULAR HGB CONC 34.6 g/dL (33.0-36.5); MEAN CORPUSCULAR VOLUME 91.6 FL (78-98); MEAN PLATELET VOLUME 8.6 FL (7.4-10.4); PLATELET COUNT 74 X10'3 (140-440); RED BLOOD COUNT 3.74 X10'6 (4.20-5.60); RED CELL DISTRIBUTION WIDTH 14.7 % (11.5-14.5); WHITE BLOOD COUNT 9.6 X10'3 (4.5-11.0)
[2023-07-10 21:25] LABS: INR 1.1 INR; PROTHROMBIN TIME 12.2 SECONDS (9.0-12.0)
[2023-07-10 21:54] VITALS: PULSE 95; RESP 16; O2SAT 94
[2023-07-10] MEDS: atenolol 25mg tablet PO ONE (22:31)
[2023-07-11] VITALS (9 sets, daily range): BP systolic 120–155; BP diastolic 71–81; PULSE 65–85; RESP 13–20; TEMP 97.6–98.6; O2SAT 96–99
[2023-07-11 03:06] LABS: BASOPHILS # (AUTO) 0.1 X10'3 (0-0.2); BASOPHILS % (AUTO) 0.7 % (0-1); EOSINOPHILS # (AUTO) 0.3 X10'3 (0-0.9); EOSINOPHILS % (AUTO) 2.8 % (0-6); HEMATOCRIT 33.7 % (35.0-45.0); HEMOGLOBIN 11.6 g/dl (12.0-16.0); LYMPHOCYTES # (AUTO) 2.9 X10'3 (1.1-4.8); LYMPHOCYTES % (AUTO) 27.5 % (21-51); MEAN CORPUSCULAR HEMOGLOBIN 31.6 PG (27.0-31.0); MEAN CORPUSCULAR HGB CONC 34.3 g/dL (33.0-36.5); MEAN CORPUSCULAR VOLUME 92.2 FL (78-98); MEAN PLATELET VOLUME 9.4 FL (7.4-10.4); MONOCYTES # (AUTO) 1.2 X10'3 (0-0.9); MONOCYTES % (AUTO) 11.4 % (2-12); NEUTROPHILS # (AUTO) 6.1 X10'3 (1.8-7.7); NEUTROPHILS % (AUTO) 57.6 % (42-75); PLATELET COUNT 88 X10'3 (140-440); RED BLOOD COUNT 3.66 X10'6 (4.20-5.60); RED CELL DISTRIBUTION WIDTH 14.5 % (11.5-14.5); WHITE BLOOD COUNT 10.5 X10'3 (4.5-11.0)
[2023-07-11 03:16] LABS: ALANINE AMINOTRANSFERASE 103 U/L (12-78); ALBUMIN 2.4 G/DL (3.4-5.0); ALBUMIN/GLOBULIN RATIO 0.6 (1.1-1.5); ALKALINE PHOSPHATASE 95 IU/L (46-116); ANION GAP 9 (8-16); ASPARTATE AMINO TRANSFERASE 103 U/L (10-37); BILIRUBIN,TOTAL 1.4 MG/DL (0.1-1.0); BLOOD UREA NITROGEN 7 MG/DL (7-18); BUN/CREATININE RATIO 15.9 (10.0-20.0); CALCIUM 7.2 MG/DL (8.5-10.1); CHLORIDE 108 MMOL/L (99-107); CREATININE 0.44 MG/DL (0.40-0.90); GLUCOSE 113 MG/DL (70-104); MAGNESIUM 1.4 MG/DL (1.5-2.4); POTASSIUM 3.9 MMOL/L (3.5-5.1); SODIUM 139 MMOL/L (135-145); TOTAL CARBON DIOXIDE 21.9 MMOL/L (24-32); TOTAL PROTEIN 6.1 G/DL (6.4-8.2); eCRCL 123 ML/MIN; eGFR > 90 ML/MIN
[2023-07-11] MEDS: docusate sod 100mg capsule PO SCH (08:00)
[2023-07-11 08:06] LABS: OCCULT BLOOD STOOL POSITIVE (Neg)
[2023-07-11] MEDS: K and/or MAG REPLACEMENT MC SCH (08:21)
[2023-07-11] MEDS: magnesium 2GM in 50ml NS 50 ML IV PRN (08:31)
[2023-07-11] MEDS: pantoprazole 40 MG vial IV SCH (08:31)
[2023-07-11] MEDS: ketorolac trometh. 30mg/ml inj. IV ONE (11:01)
[2023-07-11] MEDS: benzonatate 100mg capsule PO SCH (11:06)
[2023-07-11] MEDS: guaiFENesin ER 600mg tablet PO SCH (11:07)
[2023-07-11] MEDS: pantoprazole 40MG/NS 100ML BAG 100 ML IV SCH (11:10)
[2023-07-11] MEDS: octreotide inj. 500 MCG in normal saline 100ml IV soln 97.5 ML IV SCH (12:16)
[2023-07-11] MEDS: octreotide 100mcg/1 ml ampule IV ONE (12:16)
[2023-07-11] MEDS ORDERED: ATEN25TA PO (14:55)
[2023-07-11] MEDS ORDERED: INSU100I31 SQ (14:55)
[2023-07-11] MEDS ORDERED: FURO20TA4 PO (14:55)
[2023-07-11] MEDS ORDERED: SPIR50TA5 PO (14:55)
[2023-07-11] MEDS ORDERED: LISI40TA13 PO (14:55)
[2023-07-11 17:40] LABS: HEMATOCRIT 34.2 % (35.0-45.0); HEMOGLOBIN 11.7 g/dl (12.0-16.0); MEAN CORPUSCULAR HEMOGLOBIN 31.6 PG (27.0-31.0); MEAN CORPUSCULAR HGB CONC 34.1 g/dL (33.0-36.5); MEAN CORPUSCULAR VOLUME 92.7 FL (78-98); MEAN PLATELET VOLUME 8.8 FL (7.4-10.4); PLATELET COUNT 85 X10'3 (140-440); RED BLOOD COUNT 3.69 X10'6 (4.20-5.60); RED CELL DISTRIBUTION WIDTH 14.4 % (11.5-14.5); WHITE BLOOD COUNT 8.6 X10'3 (4.5-11.0)
[2023-07-11] MEDS: guaiFENesin/DM 10ml UD oral syrup PO PRN (19:11)
[2023-07-11] MEDS: methylPREDNISolone sod succ/PF 40mg inj. IV ONE (19:12)
[2023-07-11] MEDS: morphine 2 MG/ML inj. syringe IV PRN (19:23)
[2023-07-11] MEDS: CefTRIAXone/D5W-Rocephin 1gm 50 ML IV SCH (19:32)
[2023-07-11] MEDS: ipratropium/albuterol 3ml nebule NEB SCH (19:46)
[2023-07-11] MEDS: magnesium Cl slow-release 64mg tablet PO PRN (20:41)
[2023-07-11] MEDS: insulin Lispro (HumaLOG) vial - multi-dose SQ SCH (21:55)
[2023-07-12] VITALS (13 sets, daily range): BP systolic 138–174; BP diastolic 67–80; PULSE 59–79; RESP 13–20; TEMP 98.2–98.8; O2SAT 95–99
[2023-07-12 07:05] LABS: EOSINOPHILS % (AUTO) 0 % (0-6); MONOCYTES # (AUTO) 0.2 X10'3 (0-0.9)
[2023-07-12 07:08] LABS: BASOPHILS % (AUTO) 0.2 % (0-1); HEMATOCRIT 32.4 % (35.0-45.0); HEMOGLOBIN 11.2 g/dl (12.0-16.0); LYMPHOCYTES # (AUTO) 1.1 X10'3 (1.1-4.8); LYMPHOCYTES % (AUTO) 18.3 % (21-51); MEAN CORPUSCULAR HEMOGLOBIN 31.6 PG (27.0-31.0); MEAN CORPUSCULAR HGB CONC 34.4 g/dL (33.0-36.5); MEAN CORPUSCULAR VOLUME 91.9 FL (78-98); MONOCYTES % (AUTO) 3.2 % (2-12); NEUTROPHILS # (AUTO) 4.8 X10'3 (1.8-7.7); NEUTROPHILS % (AUTO) 78.3 % (42-75); PLATELET COUNT 72 X10'3 (140-440); RED BLOOD COUNT 3.52 X10'6 (4.20-5.60); RED CELL DISTRIBUTION WIDTH 14.6 % (11.5-14.5); WHITE BLOOD COUNT 6.1 X10'3 (4.5-11.0)
[2023-07-12 07:27] LABS: ALANINE AMINOTRANSFERASE 91 U/L (12-78); ALBUMIN 2.2 G/DL (3.4-5.0); ALBUMIN/GLOBULIN RATIO 0.6 (1.1-1.5); ALKALINE PHOSPHATASE 95 IU/L (46-116); ANION GAP 7 (8-16); ASPARTATE AMINO TRANSFERASE 77 U/L (10-37); BILIRUBIN,TOTAL 0.8 MG/DL (0.1-1.0); BLOOD UREA NITROGEN 15 MG/DL (7-18); BUN/CREATININE RATIO 21.1 (10.0-20.0); CHLORIDE 110 MMOL/L (99-107); CREATININE 0.71 MG/DL (0.40-0.90); MAGNESIUM 2.1 MG/DL (1.5-2.4); POTASSIUM 4.9 MMOL/L (3.5-5.1); SODIUM 138 MMOL/L (135-145); TOTAL CARBON DIOXIDE 21.3 MMOL/L (24-32); eCRCL 73 ML/MIN; eGFR 85 ML/MIN
[2023-07-12 07:52] LABS: CALCIUM 7.1 MG/DL (8.5-10.1)
[2023-07-12 07:53] LABS: GLUCOSE 427 MG/DL (70-104)
[2023-07-12] MEDS: lisinopril 20mg tablet PO SCH (08:47)
[2023-07-12] MEDS: atenolol 25mg tablet PO SCH (08:48)
[2023-07-12] MEDS: spironolactone 50 MG tablet PO SCH (08:49)
[2023-07-12] MEDS: PEG 3350/Na sulf,bicarb,Cl/KCl oral sol 4 liter bottle PO ONE ×2 (17:54→23:30)
[2023-07-12] MEDS: ipratropium/albuterol 3ml nebule NEB PRN (20:04)
[2023-07-13 06:00] VITALS: BP 167/79; PULSE 73; RESP 15; TEMP 97.9; O2SAT 96
[2023-07-13 08:19] LABS: BASOPHILS % (AUTO) 0.3 % (0-1); EOSINOPHILS # (AUTO) 0.1 X10'3 (0-0.9); EOSINOPHILS % (AUTO) 0.6 % (0-6); HEMATOCRIT 31.4 % (35.0-45.0); HEMOGLOBIN 10.8 g/dl (12.0-16.0); LYMPHOCYTES # (AUTO) 2.8 X10'3 (1.1-4.8); LYMPHOCYTES % (AUTO) 29.5 % (21-51); MEAN CORPUSCULAR HEMOGLOBIN 31.5 PG (27.0-31.0); MEAN CORPUSCULAR HGB CONC 34.5 g/dL (33.0-36.5); MEAN CORPUSCULAR VOLUME 91.5 FL (78-98); MEAN PLATELET VOLUME 8.8 FL (7.4-10.4); MONOCYTES # (AUTO) 0.7 X10'3 (0-0.9); MONOCYTES % (AUTO) 7.3 % (2-12); NEUTROPHILS # (AUTO) 5.9 X10'3 (1.8-7.7); NEUTROPHILS % (AUTO) 62.3 % (42-75); PLATELET COUNT 102 X10'3 (140-440); RED BLOOD COUNT 3.43 X10'6 (4.20-5.60); RED CELL DISTRIBUTION WIDTH 14.6 % (11.5-14.5); WHITE BLOOD COUNT 9.4 X10'3 (4.5-11.0)
[2023-07-13 08:37] LABS: ALANINE AMINOTRANSFERASE 91 U/L (12-78); ALBUMIN 2.2 G/DL (3.4-5.0); ALBUMIN/GLOBULIN RATIO 0.6 (1.1-1.5); ALKALINE PHOSPHATASE 87 IU/L (46-116); ANION GAP 7 (8-16); ASPARTATE AMINO TRANSFERASE 92 U/L (10-37); BILIRUBIN,TOTAL 0.7 MG/DL (0.1-1.0); BLOOD UREA NITROGEN 13 MG/DL (7-18); CALCIUM 7.3 MG/DL (8.5-10.1); CHLORIDE 115 MMOL/L (99-107); CREATININE 0.42 MG/DL (0.40-0.90); GLUCOSE 127 MG/DL (70-104); MAGNESIUM 1.7 MG/DL (1.5-2.4); POTASSIUM 3.6 MMOL/L (3.5-5.1); SODIUM 145 MMOL/L (135-145); TOTAL CARBON DIOXIDE 23.5 MMOL/L (24-32); TOTAL PROTEIN 5.8 G/DL (6.4-8.2); eCRCL 123 ML/MIN; eGFR > 90 ML/MIN
[2023-07-13 10:00] VITALS: BP 154/81; PULSE 70; RESP 16; TEMP 98.3; O2SAT 96
[2023-07-13 12:13] VITALS: BP_SYST 154; PULSE 70
[2023-07-13] MEDS: lisinopril 20mg tablet PO SCH (12:13)
[2023-07-13 14:08] VITALS: RESP 18; O2SAT 96
[2023-07-13 18:47] LABS: HEPATITIS C VIRUS ANTIBODY Reactive (Non Reactive)
== END 2023-07-13 14:30 | disposition home or self-care (01) | DRG 254 ==
LOC: ER 14:13 → ED HOLD 20:22 → ORTHO 4S 07-11 16:32
PROVIDERS: ADMIT Internal Medicine; ATTEND Family Medicine
DX: K92.1 Melena (principal); K70.31 Alcoholic cirrhosis of liver with ascites; E11.9 Type 2 diabetes mellitus without complications; I16.0 Hypertensive urgency; Z20.822 Contact with and (suspected) exposure to COVID-19; G43.909 Migraine, unspecified, not intractable, without status migrainosus; G89.29 Other chronic pain; R74.8 Abnormal levels of other serum enzymes; F15.90 Other stimulant use, unspecified, uncomplicated; J40 Bronchitis, not specified as acute or chronic; Z59.00 Homelessness unspecified
CPT/HCPCS: 36415; 71045; 74177; 80048; 80053; 82103; 82272; 82948; 83036; 83690; 83735; 83880; 84484; 85025; 85027; 85610; 86803; 87081; 87502; 87503; 87522; 87811; 93005; 93306; 94640; 94664; 94760; 96365; 96375; 99285; C9113; G0378; J0696; J1815; J2270; J2354; J2920; J3475; J3490; J7030

== ENCOUNTER 2023-09-26 13:38 | Emergency (ER) | payer MEDICAID, SELFPAY ==
[~2023-09-26] VITALS: Ht 162.6 cm; Wt 58.6 kg
[~2023-09-26 13:38] MED LIST changes: +ATEN25TA PO; -BISA-155 PO; -BUDE180A INH; -CLIN-214 PO; -DEXT15SY PO; +FURO20TA4 PO; -HYDR-4383 PO; -HYDR28CR14 TOP; -IBUP-1985 PO; -INDO-12 PO; +INSU100I31 SQ; +LISI40TA13 PO; -MAGN296S89 PO; -NAPR500T6 PO; -NITR100C6 PO; -ONDA4TAB6 PO; -POLY119P2 PO; +SPIR50TA5 PO
[2023-09-26 13:49] VITALS: BP 163/88; PULSE 106; TEMP 99; O2SAT 96
[2023-09-26 14:14] LABS: BASOPHILS # (AUTO) 0.1 X10'3 (0-0.2); BASOPHILS % (AUTO) 1.2 % (0-1); EOSINOPHILS # (AUTO) 0.2 X10'3 (0-0.9); EOSINOPHILS % (AUTO) 3.8 % (0-6); HEMATOCRIT 38.7 % (35.0-45.0); HEMOGLOBIN 13.2 g/dl (12.0-16.0); LYMPHOCYTES # (AUTO) 1.5 X10'3 (1.1-4.8); LYMPHOCYTES % (AUTO) 28.2 % (21-51); MEAN CORPUSCULAR HEMOGLOBIN 31.6 PG (27.0-31.0); MEAN CORPUSCULAR VOLUME 93.1 FL (78-98); MEAN PLATELET VOLUME 9.5 FL (7.4-10.4); MONOCYTES # (AUTO) 0.5 X10'3 (0-0.9); MONOCYTES % (AUTO) 10.5 % (2-12); NEUTROPHILS # (AUTO) 2.9 X10'3 (1.8-7.7); NEUTROPHILS % (AUTO) 56.3 % (42-75); PLATELET COUNT 85 X10'3 (140-440); RED BLOOD COUNT 4.16 X10'6 (4.20-5.60); RED CELL DISTRIBUTION WIDTH 14.2 % (11.5-14.5); WHITE BLOOD COUNT 5.2 X10'3 (4.5-11.0)
[2023-09-26 14:38] LABS: ALANINE AMINOTRANSFERASE 218 U/L (12-78); ALBUMIN 2.6 G/DL (3.4-5.0); ALBUMIN/GLOBULIN RATIO 0.6 (1.1-1.5); ALKALINE PHOSPHATASE 129 IU/L (46-116); ANION GAP 6 (8-16); ASPARTATE AMINO TRANSFERASE 181 U/L (10-37); BILIRUBIN,TOTAL 0.7 MG/DL (0.1-1.0); BLOOD UREA NITROGEN 15 MG/DL (7-18); BUN/CREATININE RATIO 25.9 (10.0-20.0); CALCIUM 8.2 MG/DL (8.5-10.1); CHLORIDE 104 MMOL/L (99-107); CREATININE 0.58 MG/DL (0.40-0.90); LIPASE 50 U/L (16-77); POTASSIUM 4.1 MMOL/L (3.5-5.1); SODIUM 135 MMOL/L (135-145); TOTAL CARBON DIOXIDE 24.8 MMOL/L (24-32); TOTAL PROTEIN 6.7 G/DL (6.4-8.2); eCRCL 94 ML/MIN; eGFR > 90 ML/MIN
[2023-09-26 14:42] LABS: GLUCOSE 495 MG/DL (70-104)
[2023-09-26 17:21] VITALS: RESP 16
[2023-09-26 17:45] LABS: BILIRUBIN,URINE NEGATIVE (Neg); CLARITY,URINE CLEAR (Clear); COLOR,URINE YELLOW (Yellow); GLUCOSE, URINE >=1000 mg/dl (Neg); KETONES,URINE NEGATIVE (Neg); LEUKOCYTE ESTERASE ,URINE NEGATIVE (Neg); NITRITES, URINE NEGATIVE (Neg); OCCULT BLOOD,URINE TRACE-INTACT (Neg); PROTEIN,URINE NEGATIVE (Neg); UA COLLECTION TYPE CLN CATCH MIDSTREAM; UROBILINOGEN,URINE 0.2 E.U/dL (0.2-1.0)
[2023-09-26 17:51] LABS: SQUAMOUS EPITHELIAL CELL,UR FEW /LPF (FEW)
[2023-09-26 17:52] LABS: BACTERIA,URINE FEW /HPF (Neg); WBC,URINE 0-4 /HPF (0-4)
[2023-09-26] MEDS ORDERED: LISI40TA13 PO (17:53)
[2023-09-26] MEDS ORDERED: FURO-150 PO (17:53)
[2023-09-26] MEDS ORDERED: SPIR50TA5 PO (17:53)
[2023-09-26] MEDS ORDERED: INSU100I31 SQ (17:53)
[2023-09-26] MEDS: insulin regular, human 10 units/0.1 ml syringe SQ ONE (18:07)
[2023-09-26] MEDS: lactulose 20gm/30ml cup PO ONE (18:08)
== END 2023-09-26 20:39 | disposition left against medical advice (07) ==
LOC: ER 13:39
DX: E11.65 Type 2 diabetes mellitus with hyperglycemia (principal); I10 Essential (primary) hypertension; F12.90 Cannabis use, unspecified, uncomplicated; F15.90 Other stimulant use, unspecified, uncomplicated; Z91.148 Patient's other noncompliance with medication regimen for other reason; Z79.899 Other long term (current) drug therapy; Z59.00 Homelessness unspecified; Z98.890 Other specified postprocedural states; Z72.89 Other problems related to lifestyle; Z56.0 Unemployment, unspecified
CPT/HCPCS: 36415; 71046; 80053; 81001; 82140; 82948; 83690; 85025; 96372; 99284; J1815

== ENCOUNTER 2024-05-17 21:48 | Emergency (ER) | payer MEDICAID ==
[~2024-05-17] VITALS: Ht 162.6 cm; Wt 50.5 kg
[2024-05-17 22:19] LABS: BASOPHILS % (AUTO) 0.5 % (0-1); EOSINOPHILS # (AUTO) 0.1 X10'3 (0-0.9); EOSINOPHILS % (AUTO) 1.2 % (0-6); HEMATOCRIT 39.6 % (35.0-45.0); HEMOGLOBIN 13.6 g/dl (12.0-16.0); LYMPHOCYTES # (AUTO) 1.8 X10'3 (1.1-4.8); MEAN CORPUSCULAR HEMOGLOBIN 31.1 PG (27.0-31.0); MEAN CORPUSCULAR HGB CONC 34.3 g/dL (33.0-36.5); MEAN CORPUSCULAR VOLUME 90.7 FL (78-98); MEAN PLATELET VOLUME 8.7 FL (7.4-10.4); MONOCYTES # (AUTO) 0.3 X10'3 (0-0.9); NEUTROPHILS % (AUTO) 72.3 % (42-75); PLATELET COUNT 101 X10'3 (140-440); RED BLOOD COUNT 4.37 X10'6 (4.20-5.60); RED CELL DISTRIBUTION WIDTH 15.1 % (11.5-14.5); WHITE BLOOD COUNT 8.3 X10'3 (4.5-11.0)
[2024-05-17 22:22] LABS: ALANINE AMINOTRANSFERASE 157 U/L (12-78); ALBUMIN 2.5 G/DL (3.4-5.0); ALBUMIN/GLOBULIN RATIO 0.6 (1.1-1.5); ALKALINE PHOSPHATASE 130 IU/L (46-116); ANION GAP 7 (8-16); ASPARTATE AMINO TRANSFERASE 177 U/L (10-37); BILIRUBIN,TOTAL 1.5 MG/DL (0.1-1.0); CALCIUM 8.2 MG/DL (8.5-10.1); CHLORIDE 102 MMOL/L (99-107); CREATININE 0.59 MG/DL (0.40-0.90); GLUCOSE 381 MG/DL (70-104); POTASSIUM 4.2 MMOL/L (3.5-5.1); SODIUM 134 MMOL/L (135-145); TOTAL CARBON DIOXIDE 25.4 MMOL/L (24-32); TOTAL PROTEIN 6.8 G/DL (6.4-8.2); eCRCL 85 ML/MIN; eGFR > 90 ML/MIN
[2024-05-17 22:23] LABS: BLOOD UREA NITROGEN 10 MG/DL (7-18); BUN/CREATININE RATIO 16.9 (10.0-20.0)
[2024-05-17] MEDS: ketorolac trometh 30MG/ML vial 30 MG/ML VIAL IV ONE (22:28)
[2024-05-17] MEDS: normal saline 1000ml 1,000 ML IV ONE (22:51)
[2024-05-17 23:01] LABS: ETHANOL < 10 MG/DL (<10)
[2024-05-18 02:00] LABS: BILIRUBIN,URINE SMALL (Neg); CLARITY,URINE SLIGHTLY CLOUDY (Clear); COLOR,URINE YELLOW (Yellow); GLUCOSE, URINE >=1000 mg/dl (Neg); KETONES,URINE TRACE mg/dl (Neg); LEUKOCYTE ESTERASE ,URINE NEGATIVE (Neg); OCCULT BLOOD,URINE MODERATE (Neg); PROTEIN,URINE 100 mg/dl (Neg); UROBILINOGEN,URINE 0.2 E.U/dL (0.2-1.0)
[2024-05-18 02:07] LABS: NITRITES, URINE NEGATIVE (Neg)
[2024-05-18 02:09] LABS: MUCUS STRANDS MODERATE /LPF (Neg); SQUAMOUS EPITHELIAL CELL,UR MODERATE /LPF (FEW); UA COLLECTION TYPE URINAL; WBC,URINE 0-4 /HPF (0-4)
[2024-05-18 02:10] LABS: BACTERIA,URINE 2+ /HPF (Neg)
[2024-05-18] MEDS: acetaminophen 325mg tablet PO ONE (02:11)
[2024-05-18 02:23] LABS: URINE AMPHETAMINE SCREEN POSITIVE (Neg); URINE BARBITUATE SCREEN NEGATIVE (Neg); URINE BENZODIAZEPINES SCREEN NEGATIVE (Neg); URINE CANNABINOID SCREEN POSITIVE (Neg); URINE COCAINE SCREEN NEGATIVE (Neg); URINE METHADONE SCREEN NEGATIVE (Neg); URINE OPIATE SCREEN NEGATIVE (Neg); URINE PHENCYCLIDINE SCREEN NEGATIVE (Neg)
[2024-05-18] MEDS: normal saline 1000ml 1,000 ML IV ONE (02:47)
[2024-05-18 02:52] LABS: LIPASE 42 U/L (16-77)
[2024-05-18 04:04] VITALS: TEMP 98.5
[2024-05-18 05:57] VITALS: BP 132/78; PULSE 108; RESP 16; O2SAT 98
== END 2024-05-18 06:17 | disposition home or self-care (01) ==
LOC: ER 21:49
DX: R10.84 Generalized abdominal pain (principal); E11.9 Type 2 diabetes mellitus without complications; F12.90 Cannabis use, unspecified, uncomplicated; F17.200 Nicotine dependence, unspecified, uncomplicated; G89.29 Other chronic pain; M19.90 Unspecified osteoarthritis, unspecified site; Z79.899 Other long term (current) drug therapy; Z79.4 Long term (current) use of insulin; Z59.00 Homelessness unspecified
CPT/HCPCS: 36415; 76700; 80053; 80305; 80320; 81001; 82948; 83690; 85025; 93005; 96361; 96374; 99285; J1885; J7030; A6449

== ENCOUNTER 2024-08-25 21:55 | Emergency (ER) | payer MEDICAID ==
[~2024-08-25] VITALS: Ht 162.6 cm; Wt 54.5 kg
[~2024-08-25 21:55] MED LIST changes: -ATEN25TA PO; +ATOR20TA66 PO; +CIPR-202 PO; +INSU100I34 SQ; +LACT1CAP76 PO; -LISI40TA13 PO; +METR-159 PO; +SPIR25TA5 PO; -SPIR50TA5 PO
[2024-08-25 22:00] VITALS: TEMP 99.4
[2024-08-25 22:35] LABS: BASOPHILS # (AUTO) 0.1 X10'3 (0-0.2); BASOPHILS % (AUTO) 1.3 % (0-1); EOSINOPHILS # (AUTO) 0.2 X10'3 (0-0.9); EOSINOPHILS % (AUTO) 3.2 % (0-6); HEMATOCRIT 37.6 % (35.0-45.0); HEMOGLOBIN 13.3 g/dl (12.0-16.0); LYMPHOCYTES # (AUTO) 1.8 X10'3 (1.1-4.8); LYMPHOCYTES % (AUTO) 25.8 % (21-51); MEAN CORPUSCULAR HEMOGLOBIN 30.9 PG (27.0-31.0); MEAN CORPUSCULAR HGB CONC 35.2 g/dL (33.0-36.5); MEAN CORPUSCULAR VOLUME 87.8 FL (78-98); MEAN PLATELET VOLUME 7.8 FL (7.4-10.4); MONOCYTES # (AUTO) 0.5 X10'3 (0-0.9); MONOCYTES % (AUTO) 6.7 % (2-12); NEUTROPHILS # (AUTO) 4.3 X10'3 (1.8-7.7); PLATELET COUNT 115 X10'3 (140-440); RED BLOOD COUNT 4.29 X10'6 (4.20-5.60); RED CELL DISTRIBUTION WIDTH 14.7 % (11.5-14.5); WHITE BLOOD COUNT 6.9 X10'3 (4.5-11.0)
[2024-08-25 22:49] LABS: ALANINE AMINOTRANSFERASE 116 U/L (12-78); ALBUMIN 2.1 G/DL (3.4-5.0); ALBUMIN/GLOBULIN RATIO 0.5 (1.1-1.5); ALKALINE PHOSPHATASE 210 IU/L (46-116); ANION GAP 4 (8-16); ASPARTATE AMINO TRANSFERASE 143 U/L (10-37); BILIRUBIN,TOTAL 0.9 MG/DL (0.1-1.0); BLOOD UREA NITROGEN 8 MG/DL (7-18); BUN/CREATININE RATIO 17.8 (10.0-20.0); CHLORIDE 108 MMOL/L (99-107); CREATININE 0.45 MG/DL (0.40-0.90); GLUCOSE 228 MG/DL (70-104); LIPASE 31 U/L (16-77); POTASSIUM 3.7 MMOL/L (3.5-5.1); SODIUM 138 MMOL/L (135-145); TOTAL PROTEIN 6.3 G/DL (6.4-8.2); eCRCL 119 ML/MIN; eGFR > 90 ML/MIN
[2024-08-25 22:56] LABS: ETHANOL < 10 MG/DL (<10)
[2024-08-25] MEDS: morphine 4 MG/ML inj SYRINge IV ONE (23:19)
[2024-08-25] MEDS: ondansetron/PF 4mg/2ml inj IV ONE (23:19)
[2024-08-26 01:36] LABS: URINE HCG NEGATIVE (NEG)
[2024-08-26 01:48] LABS: BILIRUBIN,URINE NEGATIVE (Neg); CLARITY,URINE CLEAR (Clear); COLOR,URINE YELLOW (Yellow); GLUCOSE, URINE 500 mg/dl (Neg); KETONES,URINE NEGATIVE (Neg); LEUKOCYTE ESTERASE ,URINE NEGATIVE (Neg); NITRITES, URINE NEGATIVE (Neg); OCCULT BLOOD,URINE TRACE-INTACT (Neg); PROTEIN,URINE 100 mg/dl (Neg)
[2024-08-26 01:52] LABS: UA COLLECTION TYPE CLN CATCH MIDSTREAM; URINE AMPHETAMINE SCREEN POSITIVE (Neg); URINE BARBITUATE SCREEN NEGATIVE (Neg); URINE BENZODIAZEPINES SCREEN NEGATIVE (Neg); URINE CANNABINOID SCREEN POSITIVE (Neg); URINE COCAINE SCREEN NEGATIVE (Neg); URINE METHADONE SCREEN NEGATIVE (Neg); URINE OPIATE SCREEN POSITIVE (Neg); URINE PHENCYCLIDINE SCREEN NEGATIVE (Neg)
[2024-08-26 01:57] LABS: BACTERIA,URINE FEW /HPF (Neg); CAL OXALATE CRYSTALS 4+ /HPF (NEGATIVE); RBC,URINE 0-2 /HPF (0-2); SQUAMOUS EPITHELIAL CELL,UR FEW /LPF (FEW); WBC,URINE 0-4 /HPF (0-4)
[2024-08-26 02:59] VITALS: BP 176/102; PULSE 89; O2SAT 95
[2024-08-26] MEDS ORDERED: HYDR-3973 PO (03:03)
[2024-08-26 03:26] VITALS: RESP 18
[2024-08-26] MEDS: HYDROcodone/acetaminophen 10/325mg tab PO ONE (03:26)
== END 2024-08-26 03:26 | disposition home or self-care (01) ==
LOC: ER 21:55
DX: K74.60 Unspecified cirrhosis of liver (principal); R18.8 Other ascites; M19.012 Primary osteoarthritis, left shoulder; M19.011 Primary osteoarthritis, right shoulder; E11.9 Type 2 diabetes mellitus without complications; F12.90 Cannabis use, unspecified, uncomplicated; G43.909 Migraine, unspecified, not intractable, without status migrainosus; F15.90 Other stimulant use, unspecified, uncomplicated
CPT/HCPCS: 36415; 71045; 80053; 80305; 80320; 81001; 81025; 83690; 85025; 96374; 96375; 99284; J2270; J2405

== ENCOUNTER 2024-11-01 17:44 | Emergency (ER) | payer MEDICAID ==
[~2024-11-01] VITALS: Ht 162.6 cm; Wt 36.9 kg
[2024-11-01 17:46] VITALS: TEMP 99.3
[2024-11-01] MEDS: morphine 4 MG/ML inj SYRINge IV ONE (18:26)
[2024-11-01] MEDS: ondansetron/PF 4mg/2ml inj IV ONE (18:26)
[2024-11-01] MEDS: normal saline 1000ml 1,000 ML IV ONE ×2 (18:26→20:10)
[2024-11-01 18:29] LABS: BASOPHILS # (AUTO) 0.1 X10'3 (0-0.2); BASOPHILS % (AUTO) 0.9 % (0-1); EOSINOPHILS # (AUTO) 0.2 X10'3 (0-0.9); EOSINOPHILS % (AUTO) 2.2 % (0-6); HEMATOCRIT 37.1 % (35.0-45.0); HEMOGLOBIN 12.7 g/dl (12.0-16.0); LYMPHOCYTES # (AUTO) 1.1 X10'3 (1.1-4.8); LYMPHOCYTES % (AUTO) 12.3 % (21-51); MEAN CORPUSCULAR HEMOGLOBIN 30.2 PG (27.0-31.0); MEAN CORPUSCULAR HGB CONC 34.2 g/dL (33.0-36.5); MEAN CORPUSCULAR VOLUME 88.3 FL (78-98); MEAN PLATELET VOLUME 8.4 FL (7.4-10.4); MONOCYTES # (AUTO) 0.3 X10'3 (0-0.9); MONOCYTES % (AUTO) 3.4 % (2-12); NEUTROPHILS # (AUTO) 7.1 X10'3 (1.8-7.7); NEUTROPHILS % (AUTO) 81.2 % (42-75); PLATELET COUNT 109 X10'3 (140-440); RED CELL DISTRIBUTION WIDTH 15.1 % (11.5-14.5); WHITE BLOOD COUNT 8.7 X10'3 (4.5-11.0)
[2024-11-01 18:47] LABS: BILIRUBIN,URINE NEGATIVE (Neg); CLARITY,URINE CLEAR (Clear); COLOR,URINE YELLOW (Yellow); GLUCOSE, URINE >=1000 mg/dl (Neg); KETONES,URINE NEGATIVE (Neg); LEUKOCYTE ESTERASE ,URINE TRACE (Neg); NITRITES, URINE NEGATIVE (Neg); OCCULT BLOOD,URINE SMALL (Neg); PH,URINE 6.5 (4.8-8.0); PROTEIN,URINE NEGATIVE (Neg); UROBILINOGEN,URINE 0.2 E.U/dL (0.2-1.0)
[2024-11-01 18:49] LABS: UA COLLECTION TYPE URINAL
[2024-11-01 18:52] LABS: URINE HCG NEGATIVE (NEG)
[2024-11-01 18:54] LABS: ALANINE AMINOTRANSFERASE 125 U/L (12-78); ALBUMIN 2.4 G/DL (3.4-5.0); ALBUMIN/GLOBULIN RATIO 0.5 (1.1-1.5); ALKALINE PHOSPHATASE 173 IU/L (46-116); ANION GAP 8 (8-16); ASPARTATE AMINO TRANSFERASE 138 U/L (10-37); BLOOD UREA NITROGEN 13 MG/DL (7-18); BUN/CREATININE RATIO 17.3 (10.0-20.0); CALCIUM 8.3 MG/DL (8.5-10.1); CHLORIDE 102 MMOL/L (99-107); CREATININE 0.75 MG/DL (0.40-0.90); LIPASE 39 U/L (16-77); SODIUM 134 MMOL/L (135-145); TOTAL CARBON DIOXIDE 24.5 MMOL/L (24-32); TOTAL PROTEIN 6.9 G/DL (6.4-8.2); eCRCL 48 ML/MIN; eGFR 80 ML/MIN
[2024-11-01 18:56] LABS: BACTERIA,URINE 1+ /HPF (Neg); SQUAMOUS EPITHELIAL CELL,UR MODERATE /LPF (FEW); WBC,URINE 30-50 /HPF (0-4)
[2024-11-01 18:57] LABS: RENAL CELLS, URINE FEW /HPF; TRANSITIONAL EPI CELLS,URINE FEW /HPF
[2024-11-01 19:00] LABS: GLUCOSE 537 MG/DL (70-104)
[2024-11-01 19:30] LABS: URINE AMPHETAMINE SCREEN POSITIVE (Neg); URINE BARBITUATE SCREEN NEGATIVE (Neg); URINE BENZODIAZEPINES SCREEN NEGATIVE (Neg); URINE CANNABINOID SCREEN NEGATIVE (Neg); URINE COCAINE SCREEN NEGATIVE (Neg); URINE METHADONE SCREEN NEGATIVE (Neg); URINE OPIATE SCREEN NEGATIVE (Neg); URINE PHENCYCLIDINE SCREEN NEGATIVE (Neg)
[2024-11-01] MEDS: hydrALAZINE 20mg/ml inj. IV ONE (20:10)
--- NOTE | 2024-11-01 20:20 | Physician Documentation ---
History of Present Illness ~ Chief Complaint: Abdominal Pain Stated Complaint: HYPERGLYCEMIA Time Seen by MD: 19:58 Primary Medical Doctor: Pt declined to answer Mode of Arrival: EMS HPI Patient presents to the emergency room with complaints of hyperglycemia and abdominal pain. Patient has history of cirrhosis and methamphetamine abuse in his homeless. She has picked up outside of rabies. History is limited as patient is sleeping and only remains awake for a few sec when I wake her up. When she wakes up she states her abdomen hurts and then goes back to sleep. Medication Reconciliation Allergies: Coded Allergies: No Known Allergies (Unverified , 08/12/24) Scheduled Atorvastatin Calcium (Atorvastatin Calcium), 1 TAB PO DAILY, (Reported) Ciprofloxacin HCl (Ciprofloxacin HCl), 1 TAB PO BID Furosemide (Furosemide), 1 TAB PO DAILY, (Reported) Insulin Glargine,Hum.rec.anlog (Basaglar Kwikpen U-100), 30 UNITS SQ DAILY, (Reported) Insulin Glargine,Hum.rec.anlog (Basaglar Kwikpen U-100), 30 UNIT SQ QDD Insulin Lispro (Humalog Onur Kwikpen), 5 SQ before meals, (Reported) Lactobacillus Casei/Folic Acid (Restora Rx Capsule), 1 CAP PO DAILY Metronidazole* (Flagyl*), 1 TAB PO Q8H Spironolactone (Spironolactone), 1 TAB PO DAILY, (Reported) Past Medical History Past Medical History: Migraine, Cirrohsis, Hepatitis C, Diabetes, Arthritis, Chronic Pain, MRSA Abscess Past Surgical History: Patient History: FH: HTN (hypertension) MOTHER, , Age: 72 FH: diabetes mellitus MOTHER, , Age: 72 Thyroid disease MOTHER, , Age: 72 Alcohol Use: Occasionally Drug Use: marijuana, methamphetamine Lives with: Other Lives In: Homeless Occupation: unemployed Review of Systems ROS Review of systems limited secondary to patient's clinical condition Physical Exam Vital Signs: Temperature: 99.3, Source: Oral, Heart Rate: 118, Respiratory Rate: 17, BP: 187/111, Pulse Oximetry: 97, Weight: 36.900 Oxygen Flow Rate: 0 Physical Exam General: Patient is sleeping, easily arousable and irritable when I wake her up Head: Normocephalic and atraumatic. Eyes: Conjunctival normal. EOMI. PERRL. ENT: Mucous membranes dry. Neck: Supple, trachea is midline. Chest: Clear to auscultation bilaterally without rales, rhonchi, or wheezes. The re is no accessory muscle use or retractions. Cardiac: Tachycardic and regular without murmurs, gallops, or rubs. Abd: Soft, minimal distention. Nontender to palpation Progress Results/Orders Results/Orders Orders - LILY ORTIZ MD * Blood Glucose Assessment * ACHS (11/01/24 23:02) Insulin Regular, Human (Humulin R 10 Uni (11/02/24 04:05) Completed Orders - LILY ORTIZ MD Drug Screen, Urine (11/01/24 18:52) Hydralazine Inj. (Apresoline Inj.) (11/01/24 20:05) Normal Saline 1000ml (Sodium Chloride 10 (11/01/24 20:05) Insulin Regular, Human (Humulin R 10 Uni (11/01/24 20:05) Procalcitonin (11/01/24 20:24) Ceftriaxone/D8u-Jwmavtie 1gm (Rocephin 1 (11/01/24 20:30) Insulin Regular, Human (Humulin R 10 Uni (11/01/24 23:15) Insulin Regular, Human (Humulin R 10 Uni (11/02/24 01:50) Medications Received in ER Medications (Trade) Dose Ordered Sig/Yovana Route PRN Reason Start Time Stop Time Status Last Admin Dose Admin (Apresoline inj.) 10 mg ONCE ONCE IV 11/01/24 20:05 11/01/24 20:06 DC 11/01/24 20:10 10 MG Sodium Chloride 1,000 ml @ 1,000 mls/hr ONCE ONCE IV 11/01/24 20:05 11/01/24 21:04 DC 11/01/24 20:10 1,000 MLS/HR Ceftriaxone Sodium 50 ml @ 100 mls/hr ONCE ONCE IV 11/01/24 20:30 11/01/24 20:59 DC 11/01/24 20:48 100 MLS/HR (HumuLIN R 10 units per 0.1 ML syringe) 5 units ONCE ONCE IV 11/01/24 23:15 11/01/24 23:24 DC 11/02/24 00:16 5 UNITS (HumuLIN R 10 units per 0.1 ML syringe) 5 units ONCE ONCE IV 11/02/24 01:50 11/02/24 01:51 DC 11/02/24 01:58 5 UNITS Vital Signs 11/01/24 11/01/24 11/01/24 11/01/24 17:46 18:26 18:32 18:32 Temp 99.3 Pulse 95 100 Resp 16 15 17 18 B/P (MAP) 193/105 197/102 (133) Pulse Ox 92 95 O2 Flow Rate 0 11/01/24 11/01/24 11/01/24 11/01/24 19:49 20:10 20:16 20:50 Pulse 110 118 112 Resp 17 15 B/P (MAP) 199/111 (140) 169/94 (119) Pulse Ox 94 97 97 O2 Delivery Nasal Cannula* O2 Flow Rate 0 2 2.0 FiO2 N/A 11/01/24 11/02/24 11/02/24 21:40 01:02 02:47 Pulse 109 116 118 Resp 14 15 18 B/P (MAP) 144/66 (92) 121/64 (83) 134/82 (99) Pulse Ox 97 97 97 O2 Flow Rate 2.0 2.0 2.0 Laboratory Tests Test 11/01/24 18:19 11/01/24 18:26 11/01/24 20:18 11/01/24 22:55 White Blood Count 8.7 Red Blood Count 4.20 Hemoglobin 12.7 Hematocrit 37.1 Mean Corpuscular Volume 88.3 Mean Corpuscular Hemoglobin 30.2 Mean Corpuscular Hemoglobin Concent 34.2 Red Cell Distribution Width 15.1 H Platelet Count 109 L Mean Platelet Volume 8.4 Neutrophils (%) (Auto) 81.2 H Lymphocytes (%) (Auto) 12.3 L Monocytes (%) (Auto) 3.4 Eosinophils (%) (Auto) 2.2 Basophils (%) (Auto) 0.9 Neutrophils # (Auto) 7.1 Lymphocytes # (Auto) 1.1 Monocytes # (Auto) 0.3 Eosinophils # (Auto) 0.2 Basophils # (Auto) 0.1 CBC Comment Sodium Level 134 L Potassium Level 4.0 Chloride Level 102 Carbon Dioxide Level 24.5 Anion Gap 8 Blood Urea Nitrogen 13 Creatinine 0.75 Estimated GFR/1.73 m2 80 BUN/Creatinine Ratio 17.3 Glucose Level 537 *H Calcium Level 8.3 L Total Bilirubin 1.0 Aspartate Amino Transf (AST/SGOT) 138 H Alanine Aminotransferase (ALT/SGPT) 125 H Alkaline Phosphatase 173 H Total Protein 6.9 Albumin 2.4 L Globulin 4.5 H Albumin/Globulin Ratio 0.5 L Lipase 39 Procalcitonin 0.09 Chemistry Comments Urine Specimen Description Urinal Urine Color Yellow Urine Clarity Clear Urine pH 6.5 Urine Specific [place] <=1.005 Urine Protein Negative Urine Glucose (UA) >=1000 H Urine Ketones Negative Urine Occult Blood Small Urine Nitrite Negative Urine Bilirubin Negative Urine Urobilinogen 0.2 Urine Leukocyte Esterase Trace H Urine RBC 10-20 Urine WBC 30-50 H Urine Squamous Epithelial Cells Moderate Urine Transitional Epithelial Cells Few Urine Renal Cells Few Urine Bacteria 1+ Urine Mucus Urine Culture Indicated Indicated Volume Urine Centrifuged 10 ml Urine HCG, Qualitative Negative Urine Comment Urine Opiates Screen Negative Urine Methadone Screen Negative Urine Fentanyl Screen Negative Urine Barbiturates Screen Negative Urine Phencyclidine Screen Negative Urine Amphetamines Screen Positive Urine Benzodiazepines Screen Negative Urine Cocaine Screen Negative Urine Cannabinoids Screen Negative Drug Screen Comment Glucometer 354 H 322 H Test 11/02/24 00:09 11/02/24 01:44 11/02/24 03:10 Glucometer 316 H 283 H 250 H Microbiology Date/Time Source Procedure Growth Status 11/01/24 18:57 Urine Urinal (Er Only) Urine Culture - Preliminary Culture received. Resulted Medical Decision Making Findings Patient presents to the emergency room with abdominal pain and hyperglycemia as per HPI. Differentials include but are not limited to diabetic ketoacidosis liver cirrhosis ascites intra-abdominal infection therefore emergent labs indicated. Labs reassuring for no DKA. Patient has chronic abdominal pain and given no white blood cell count I do not feel she requires a CT scan. Noted urinary tract infection we will treat her as such. Patient with poor prognosis. Positive amphetamines Departure Disposition: HOME / SELF CARE / HOMELESS Impression: Primary Impression: Acute urinary tract infection Additional Impression: Uncontrolled diabetes mellitus Condition: Fair Discharge Instructions: Urinary Tract Infection, Adult Referrals: NO PRIMARY CARE PROVIDER (PCP) Prescriptions Cephalexin*Monohydrate* (Keflex*) 500 Mg Capsule 1 CAP PO Q12H for 10 Days, #20 CAP Prov: LILY ORTIZ MD 11/02/24 Signature Scribe Signature: No scribe Attestation: The note accurately reflects work and decisions made by me.Lily Ortiz MD 11/02/24 04:04 LILY ORTIZ MD Nov 01, 2024 20:20
[2024-11-01] MEDS: insulin regular, human 10 units/0.1 ml syringe IV ONE (20:24)
[2024-11-01] MEDS: CefTRIAXone/D5W-Rocephin 1gm 50 ML IV ONE (20:48)
[2024-11-02] MEDS: insulin regular, human 10 units/0.1 ml syringe IV ONE ×3 (00:16→04:13)
[2024-11-02] MEDS ORDERED: CEPH-585 PO (04:04)
[2024-11-02 04:16] VITALS: BP 136/75; PULSE 113; RESP 18; O2SAT 99
== END 2024-11-02 04:39 | disposition home or self-care (01) ==
LOC: ER 17:44
DX: E11.65 Type 2 diabetes mellitus with hyperglycemia (principal); N39.0 Urinary tract infection, site not specified; M19.90 Unspecified osteoarthritis, unspecified site; G43.909 Migraine, unspecified, not intractable, without status migrainosus; F12.90 Cannabis use, unspecified, uncomplicated; F15.90 Other stimulant use, unspecified, uncomplicated; Z56.0 Unemployment, unspecified; Z59.00 Homelessness unspecified; Z72.89 Other problems related to lifestyle; Z79.899 Other long term (current) drug therapy
CPT/HCPCS: 36415; 80053; 80305; 81001; 81025; 82948; 83690; 84145; 85025; 87077; 87088; 87186; 96361; 96365; 96375; 96376; 99285; J0360; J0696; J1815; J2270; J2405; J7030; A4615

== ENCOUNTER 2025-01-06 07:06 | Inpatient (IN) | payer MEDICAID ==
[~2025-01-06] VITALS: Ht 162.6 cm; Wt 52.9 kg
[2025-01-06] VITALS (7 sets, daily range): BP systolic 154–180; BP diastolic 87–99; PULSE 84–108; RESP 12–18; TEMP 97.5–98.2; O2SAT 91–95
[~2025-01-06 07:06] MED LIST changes: -CIPR-202 PO; +CIPR-458 PO
[2025-01-06 08:35] LABS: MEAN PLATELET VOLUME 7.9 FL (7.4-10.4); RED CELL DISTRIBUTION WIDTH 15.6 % (11.5-14.5)
[2025-01-06 08:56] LABS: CREATININE 0.52 MG/DL (0.40-0.90); TOTAL CARBON DIOXIDE 24.9 MMOL/L (24-32); eCRCL 100 ML/MIN; eGFR > 90 ML/MIN
[2025-01-06] MEDS ORDERED: ofloxacin 0.33% 5ml ophthalmic drops RIGHTEYE SCH (09:57)
--- NOTE | 2025-01-06 09:57 | Physician Documentation ---
History of Present Illness ~ General Chief Complaint: Multiple Medical Complaints Stated Complaint: HEADACHE/ABDOMINAL PAIN Time Seen by MD: 08:27 OK to notify your PCP?: Yes Primary Medical Doctor: Pt declined to answer Source: patient Mode of Arrival: Ambulatory Exam Limitations: no limitations History of Present Illness Initial Comments Chief Complaint: Multiple complaints Caveat: None Independent Historians: None History of Present Illness: Patient is a 59-year-old woman who comes in with multiple medical complaints that includes but isn't limited to: Swollen chin, discharge from right eye, headache, cough, abdominal pain and distention, blood in the stool, intermittent pate white stools Review of systems: All systems were reviewed and are negative except for what is indicated in the history of present illness. Past Medical History: Type 2 diabetes, cirrhosis, hepatitis unknown type, history of spontaneous bacterial peritonitis, ascites Past Surgical History: Noncontributory Social History: Smoker, denies IV drug use at this time, former IV drug abuse, denies drug or alcohol use at this time Medications: Reviewed as documented Nursing Notes Allergies: Reviewed as documented in Nursing Notes Medication Reconciliation Allergies: Coded Allergies: No Known Allergies (Unverified , 01/06/25) Scheduled Atorvastatin Calcium (Atorvastatin Calcium), 1 TAB PO DAILY, (Reported) Ciprofloxacin HCl (Ciprofloxacin HCl), 1 TAB PO BID Furosemide (Furosemide), 1 TAB PO DAILY, (Reported) Insulin Glargine,Hum.rec.anlog (Basaglar Kwikpen U-100), 30 UNITS SQ DAILY, (Reported) Insulin Glargine,Hum.rec.anlog (Basaglar Kwikpen U-100), 30 UNIT SQ QDD Insulin Lispro (Humalog Onur Kwikpen), 5 SQ before meals, (Reported) Lactobacillus Casei/Folic Acid (Restora Rx Capsule), 1 CAP PO DAILY Metronidazole* (Flagyl*), 1 TAB PO Q8H Spironolactone (Spironolactone), 1 TAB PO DAILY, (Reported) Past Medical History Past Medical History: Migraine, Cirrohsis, Hepatitis C, Diabetes, Arthritis, Chronic Pain, MRSA Abscess Past Surgical History: Patient History: FH: HTN (hypertension) MOTHER, , Age: 72 FH: diabetes mellitus MOTHER, , Age: 72 Thyroid disease MOTHER, , Age: 72 Alcohol Use: Occasionally Drug Use: marijuana, methamphetamine Lives with: Other Lives In: Homeless Occupation: unemployed Review of Systems All Other Systems at this time: Reviewed and Negative ROS Patient denies any other acute symptoms other than above. All other systems are negative Physical Exam Physical Exam Vital Signs: RN Vital Signs have been reviewed: Yes, Temperature: 97.2, Source: Temporal, Heart Rate: 99, Respiratory Rate: 16, BP: 177/91, Pulse Oximetry: 93, Weight: 52.900 Oxygen Flow Rate: 0 Pulse Oximetry Reflects: adequate oxygenation Physical Exam General Appearance: Mild distress, chronically ill-appearing HEENT: Normal OP, moist oral mucosa, PERRL, EOMI Neck: supple, normal ROM, trachea midline Pulmonary: No respiratory distress, CTA, BS equal Cardiac: RRR, no murmur, rub or gallop, GI: nondistended, soft, nontender, normal bowel sounds, no guarding, no rebound Extremities: normal ROM, no swelling, non-tender Skin: intact, dry, warm, no rashes Neuro: AAOx3, speech is clear, no focal motor weakness Psych: normal affect, good eye contact, no apparent hallucination, normal speech Progress Results/Orders Results/Orders Orders - TOBIN BARKLEY MD Urinalysis, Cult If Indicated (01/06/25 07:54) Morphine 4mg/Ml Inj. (Morphine Inj.) (01/06/25 09:55) Ed Iv Pain Medications (01/06/25 09:51) Chest,Single View (01/06/25 09:51) Monitor (01/06/25 09:51) Saline Lock (01/06/25 09:51) Ciprofloxacin Ophth Drops (Ciloxan 0.3% (01/06/25 10:01) Page Hospitalist (01/06/25 11:19) Fill Out Med Reconciliation (01/06/25 11:19) Completed Orders - TOBIN BARKLEY MD Cbc/Diff (01/06/25 07:54) Lipase (01/06/25 07:54) CMP (01/06/25 07:54) Ondansetron Inj. (Zofran 4mg/2ml Vial) (01/06/25 09:55) Chest,Single View (01/06/25 09:51) Ofloxacin Ophth Drops (Ocuflox Ophth German (01/06/25 09:57) Sulfamethox/Trimetho. Ds Tab (Septra Ds (01/06/25 09:55) Medications Received in ER Medications (Trade) Dose Ordered Sig/Yovana Route PRN Reason Start Time Stop Time Status Last Admin Dose Admin (Zofran 4mg/2ml vial) 4 mg ONCE ONCE IV 01/06/25 09:55 01/06/25 09:56 DC 01/06/25 10:05 4 MG (morphine inj.) 4 mg Q20M PRN IV moderate to severe pain 4-10 01/06/25 09:55 01/06/25 10:04 4 MG (Septra DS tab) 1 tab ONCE ONCE PO 01/06/25 09:55 01/06/25 09:57 DC 01/06/25 10:04 1 TAB (Ciloxan 0.3% ophth drops) 2 drp Q6H RIGHTEYE 01/06/25 10:01 01/06/25 10:06 2 DRP Vital Signs 01/06/25 01/06/25 01/06/25 01/06/25 07:20 07:36 08:30 09:21 Temp 97.2 Pulse 99 91 99 Resp 22 16 12 16 B/P (MAP) 176/87 (116) 177/91 (119) Pulse Ox 96 94 93 O2 Flow Rate 0 0 01/06/25 01/06/25 01/06/25 10:04 10:34 11:57 Pulse 89 89 Resp 12 12 18 B/P (MAP) 183/96 (125) 164/91 (115) Pulse Ox 95 96 O2 Flow Rate 2.0 0 Laboratory Tests Test 01/06/25 07:25 01/06/25 08:05 Glucometer 235 H White Blood Count 10.4 Red Blood Count 4.02 L Hemoglobin 12.6 Hematocrit 35.7 Mean Corpuscular Volume 88.9 Mean Corpuscular Hemoglobin 31.2 H Mean Corpuscular Hemoglobin Concent 35.1 Red Cell Distribution Width 15.6 H Platelet Count 115 L Mean Platelet Volume 7.9 Neutrophils (%) (Auto) 70.7 Lymphocytes (%) (Auto) 17.1 L Monocytes (%) (Auto) 9.6 Eosinophils (%) (Auto) 2.0 Basophils (%) (Auto) 0.6 Neutrophils # (Auto) 7.4 Lymphocytes # (Auto) 1.8 Monocytes # (Auto) 1.0 H Eosinophils # (Auto) 0.2 Basophils # (Auto) 0.1 CBC Comment Sodium Level 133 L Potassium Level 3.2 L Chloride Level 102 Carbon Dioxide Level 24.9 Anion Gap 6 L Blood Urea Nitrogen 7 Creatinine 0.52 Estimated GFR/1.73 m2 > 90 BUN/Creatinine Ratio 13.5 Glucose Level 264 H Calcium Level 7.5 L Total Bilirubin 1.7 H Aspartate Amino Transf (AST/SGOT) 92 H Alanine Aminotransferase (ALT/SGPT) 67 Alkaline Phosphatase 155 H Total Protein 7.0 Albumin 1.8 L Globulin 5.2 H Albumin/Globulin Ratio 0.3 L Lipase 44 Chemistry Comments Medical Decision Making Additional info obtained from: old records Findings Differential diagnosis includes but is not limited to: MRSA, early abscess chin, conjunctivitis, cirrhosis, ascites, pneumonia, COPD exacerbation, congestive heart failure, acute coronary syndrome, pleural effusion EKG independent interpretation: Chest x-ray, single view, indication: Cough Independent interpretation: Large right pleural effusion, otherwise normal mediastinum, normal cardiac silhouette. Much worse pleural effusion compared to August 25, 2024 Laboratory data independent interpretation: CBC: Unremarkable CMP: Mild hypokalemia potassium 3.2, mild hyperglycemia to 64, elevated LFTs, total bili 1.7, AST 92, ALT 67, alk-phos 155 Emergency department course/medical decision-making: Patient presents with cough and multiple other complaints. Patient has large worsening right pleural effusion. We will recommend admission. Patient's lab work is significant for liver disease. Patient's ascites is not severe enough for therapeutic paracentesis. Recommend admission for the large right pleural effusion. Patient isn't requiring oxygen. Patient is started on Bactrim for an early abscess of the chin. Patient is started on Cipro eye drops for the conjunctivitis in the right eye. Test results and treatment plan and need for admission was discussed with the patient. Consultation/communications: 11:40 a.m.: Case discussed with the resident hospitalist Dr. Gilliam. She will evaluate the patient for admission. Departure Time of Disposition: 11:19 Disposition: 09 ADMITTED INPATIENT Admitted to Inpatient Unit: to hospitalist Admission Level of Care: Med/Surg Impression: Primary Impression: Hyponatremia Additional Impressions: Hypokalemia Pleural effusion, right Cirrhosis Qualified Codes: K74.60 - Unspecified cirrhosis of liver; R18.8 - Other ascites Ascites Qualified Codes: R18.8 - Other ascites Early abscess chin Conjunctivitis Qualified Codes: H10.31 - Unspecified acute conjunctivitis, right eye Condition: Fair Education Educated: Patient Educated regarding: diagnosis, treatment Signature Scribe Signature: No scribe Attestation: No scribe TOBIN BARKLEY MD Jan 06, 2025 09:57
[2025-01-06] MEDS: morphine 4 MG/ML inj SYRINge IV PRN (10:04)
[2025-01-06] MEDS: sulfamethoxazole/trimethoprim DS (800/160mg) tablet PO ONE (10:04)
[2025-01-06] MEDS: ondansetron/PF 4mg/2ml inj IV ONE (10:05)
[2025-01-06] MEDS: ciprofloxacin 0.3% 2.5ml ophthalmic solution RIGHTEYE SCH (10:06)
--- NOTE | 2025-01-06 10:43 | RADIOLOGY REPORT ---
CHEST RADIOGRAPH Indication: cough Technique: Single frontal view of the chest was obtained COMPARISON: DI CHEST,SINGLE VIEW on DOS: 08/25/24, DI CHEST,TWO VIEWS on DOS: 09/26/23, DI CHEST,SINGLE VIEW on DOS: 07/10/23, CHEST,SINGLE VIEW on DOS: 02/27/21 FINDINGS: Lines and Tubes: None Lungs: Extensive right lung opacity may reflect pneumonia or aspiration. Pleura: Moderate to large right pleural effusion. No pneumothorax. Cardiomediastinal contours: Unremarkable Bones: Unremarkable IMPRESSION: Extensive right lung opacity may reflect pneumonia or aspiration. Moderate to large right pleural effusion
--- NOTE | 2025-01-06 11:59 | ELECTROCARDIOGRAPH REPORT ---
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
[2025-01-06] MEDS ORDERED: magnesium hydroxide 30ml (MOM) UD suspension PO PRN (12:45)
[2025-01-06] MEDS ORDERED: mag hydrox/Alum hydrox/simeth 30ml oral suspension PO PRN (12:45)
[2025-01-06] MEDS ORDERED: potassium Cl 40MEQ/1/2NS 520ml 520 ML IV PRN (12:45)
[2025-01-06] MEDS ORDERED: ondansetron/PF 4mg/2ml inj IV PRN (12:45)
[2025-01-06] MEDS ORDERED: magnesium sulf-water 4G/100mL 100 ML IV PRN (12:45)
[2025-01-06] MEDS ORDERED: magnesium sulf-water 2g/50mL 50 ML IV PRN (12:45)
[2025-01-06] MEDS ORDERED: potassium Cl 20 mEq SR tablet PO PRN (12:45)
[2025-01-06] MEDS ORDERED: magnesium Cl slow-release 64mg tablet PO PRN (12:45)
--- NOTE | 2025-01-06 13:58 | HISTORY AND PHYSICAL-Residence ---
History & Physical Providers to Resident Creating Document: JANIE MOROCHO RES ~ History of Present Illness Primary Medical Doctor: Pt declined to answer Reason for Admit\Complaint: pneumonia History of Present Illness A 59-year-old female Ana M Hammonds, with past medical history of hypertension, type 2 diabetes mellitus, cirrhosis, COPD has presented to the ED with chief complaints of cough, pain abdomen, chin pain. Cough started three days ago, productive, associated with chest tightness, breathlessness. Aggravated by lying down, no relieving factors. Patient denies palpitations, chest pain, dizziness. Pain abdomen present since the last few weeks, mainly in the lower quadrants radiating to the epigastric area, 5/10 in intensity, no aggravating or relieving factors, not associated with nausea, vomiting. Patient report having chin and right side cheek pain since many days, is unable to open her mouth or eat anything due to severe pain. Allergies: Coded Allergies: No Known Allergies (Unverified , 01/06/25) Home Medications Home Medications Active Restora Rx Capsule (Lactobacillus Casei/Folic Acid) 60 Mg (200 Billion Cell)- 1.25 Mg Capsule 1 Cap PO DAILY 30 Days Ciprofloxacin HCl (Ciprofloxacin) 500 Mg Tab 1 Tab PO BID Flagyl* (Metronidazole) 500 Mg Tablet 1 Tab PO Q8H Basaglar Kwikpen U-100 (Insulin Glargine,Hum.rec.anlog) 100 Unit/Ml (3 Ml) Insuln.pen 30 Unit SQ QDD 30 Days Reported Humalog Onur Kwikpen (Insulin Lispro) 100 Unit/Ml Ins.pen.hf 5 SQ BEFORE MEALS Atorvastatin Calcium 20 Mg Tablet 1 Tab PO DAILY Spironolactone 25 Mg Tablet 1 Tab PO DAILY Basaglar Kwikpen U-100 (Insulin Glargine,Hum.rec.anlog) 100 Unit/Ml (3 Ml) Insuln.pen 30 Units SQ DAILY Furosemide 20 Mg Tablet 1 Tab PO DAILY Past Medical History Past Medical History Hypertension Type 2 diabetes mellitus COPD Cirrhosis Hepatitis Past Surgical History Surgical History Comment Cholecystectomy Family History Family History: FH: HTN (hypertension) MOTHER, , Age: 72 FH: diabetes mellitus MOTHER, , Age: 72 Thyroid disease MOTHER, , Age: 72 Past Social History Social History Comment Started smoking from the age of 10 years, smokes half pack per day. Does not drink alcohol. Smokes meth. Tried to stop it for a while but relapsed back. Was homeless for a few days but currently living with a friend at home. FAMILY HISTORY- Patient unable to recollect. Smoking: Cigarettes, Less than 1 pack/day Alcohol Use: Occasionally Drug Use: Marijuana, Methamphetamine Lives with: Other Lives In: Homeless Occupation: unemployed ROS All Other Systems: Reviewed and Negative ROS Constitutional: No fever, chills, dizziness, patient looks thin, malnourished Eyes: Right eye looks red, purulent discharge present, patient unable to open right eye due to pain. ENT: No sore throat, epistaxis, tinnitus, patient unable to open her mouth due to pain. Cardiovascular: Patient complains of chest tightness, no palpitations, syncope, lower extremity edema, Respiratory: Reports Shortness of breath and cough productive of sputum No hemoptysis. Gastrointestinal: Abdominal pain present,no diarrhea, no nausea and vomiting. No constipation,hematemesis, melena or fresh blood Musculoskeletal:No chronmic edema. Integumentary: Red erythematous lesion present on the chin. Patient unable to open her mouth due to severe pain. Neurologic: No weakness, headache present, no neck pain, numbness or tingling of the extremities, Psychiatric: No delusions, depression, loss of interest in normal activity or change in sleep pattern, hallucinations, suicidal ideations Endocrine: Reports fatigue,weakness. no polydipsia, polyuria, change in appetite, heat or cold intolerance, sweating, dry skin Hematological: No bleeding, petechiae, bruising Allergies: No asthma or urticaria Exam Vitals: Vital Signs Date Time Temp Pulse Resp B/P (MAP) Pulse Ox O2 Delivery O2 Flow Rate FiO2 01/06/25 11:57 89 18 164/91 (115) 96 0 01/06/25 07:20 97.2 General: Patient is drowsy , unable to answer questions properly, oriented to time,place, person, thin built. HEENT: Atraumatic, normocephalic, PEERLA, anicteric sclera ; pink conjunctiva, m oist mucosa membrane Neck: Trachea midline. Supple, normal range of motion, no JVD Cardiac: S1, S2 heard,Regular rate and rhythm, without murmurs, rubs, or gallops. Chest and Respiratory: No breath sounds heard on the right side , decreased breath sounds on the left, mild wheezing on both sides & no rhonchi . Abdomen: Abdomen symmetric, distended, diffuse tenderness all over the abdomen , no guarding or rebound tenderness,normal bowel sounds , normoactive, no hepatosplenomegaly MSK: Patient unable to lift her right hand due to pain. There is no joint pain or joint swelling or joint erythema. Right hand tender to palpate Extremities: warm, well-perfused, No cyanosis, clubbing or edema, 2+ pulses felt Neurological: Speech is clear, alert, and oriented x 4. No motor or sensory deficit, deep tendon reflexes normal, cerebellar intact. Cranial nerves II-XII intact. Skin: Warm and dry Psychiatry: Affect and mood are normal Diagnostic Data Last Recorded Lab Results: 01/06/25 0801/06/25 08 Diagnostic Data: Laboratory Tests Test 01/06/25 13:10 D-Dimer Comment Advance Care Planning Advanced Care plannin - 30 Minutes Additional Plan Acute hypoxic respiratory failure Community acquired pneumonia covering Gram-negative and Gram-positive organisms Possible acute exacerbation of heart failure with unknown ejection fraction Patient is breathless, on 2 L of oxygen. Procalcitonin and lactic acid ordered, follow up. ESR/CRP ordered, follow up. Troponins ordered D-dimer ordered Blood and sputum culture ordered, follow up Chest [id number], pleural effusion CT chest- Large right pleural effusion causing near-complete collapse of the right lung. Patient given methylprednisolone 125 mg once IV On Methylprednisolone 60 mg q.8h IV Albuterol ipratropium 2.5 mg q.4h RT Vancomycin 1 gm Azithromycin 500 mg daily p.o. Zosyn 3.5 q.8h lasix 40 mg b.i.d. acute metabolic Encephalopathy Possible hepatic encephalopathy with decompensated liver failure Cirrhotic liver Abdominal ascites- Ammonia level ordered -increased level Started the patient on lactulose [address] abdomen pelvis shows- Cirrhotic liver Moderate abdominopelvic ascites. Splenomegaly Right eye bacterial infection- Purulent discharge seen Patient started on ciprofloxacin 2drp q.6 H. Cellulitis of the face- Face CT findings 1.Soft tissue stranding along the right side of the face, most prominent near the right mandibular body, likely cellulitis in the appropriate clinical setting. 2. Dental disease , most prominent involving the right mandibular molar teeth, which may be the source of the cellulitis along the right side of the face. There is adjacent ill-defined soft tissue edema locules of gas, possible phlegmon, . 3. Left maxillary sinusitis. 4. Mild right pre malar and periorbital soft tissue swelling, possible cellulitis in the appropriate clinical setting. No evidence for orbital cellulitis. Correlate with clinical findings. Patient on antibiotics. Type 2 diabetes mellitus- HB A1c >12 Patient is started on hypoglycemia/hyperglycemia protocol Insulin glargine 12 units SQ Insulin lispro-3 units SQ Continue to monitor her blood glucose levels. Hypertension- Hydralazine if systolic blood pressure more than 160 and diastolic more than 90. Keep monitoring her blood pressures. COPD- Not in acute exacerbation. Continue DuoNebs as needed. Code Status:full code Nutrition:heart healthy PT:ordered Prognosis:guarded Disposition:patient's ammonia is elevated started lactulose, glucose levels are high, started the patient hyperglycemia hypoglycemia protocol, patient on antibiotics. Keep monitoring Janie Morocho MD Internal Medicine Resident PGY-1 Date of Service: Jan 06, 2025 Billing Provider: SHIRLEY ROBERTS MD, PREETHI, RES Jan 06, 2025 13:58
[2025-01-06] MEDS: PERFLUTREN PROTEIN-A MICROSPHR (Optison) 0.22 MG/ML 3ML VIAL IV ONE (14:40)
[2025-01-06] MEDS: vancomycin/NS 1 GM ADD-VANTAGE 250 ML IV SCH (14:42)
[2025-01-06] MEDS: ipratropium/albuterol 3ml nebule NEB SCH (15:00)
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
--- NOTE | 2025-01-06 15:11 | RADIOLOGY REPORT ---
Exam: CT CT CHEST ABDOMEN PELVIS History: to rule out any underlying mass Comparison Study: DI CHEST,SINGLE VIEW on DOS: 01/06/25, DI CHEST,SINGLE VIEW on DOS: 08/25/24, CT CT A BDOMEN PELVIS W/ ORAL CONTRAST on DOS: 08/12/24, CT CT ABDOMEN PELVIS W/ IV CONTRAST on DOS: 08/12/24, DI CHEST,TWO VIEWS on DOS: 09/26/23 Technique: Multidetector spiral CT of the chest, abdomen and pelvis was performed from lower neck to pubic symphysis Axial, coronal and sagittal multiplanar reformats were performed by the technologist on a separate workstation. Radiation Dose : 1. Chest/Abdomen/Pelvis: CTDIvol 7.3 mGy, DLP 587 mGy*cm. Findings: Lower neck: Normal thyroid. Lungs: Large right pleural effusion causing near complete collapse of the right lung. Heart/Vascular Structures: Normal heart size. No pericardial effusion. Lymph Nodes: No adenopathy Pleura: Large right pleural effusion. No pneumothorax Liver: Cirrhotic liver. Gallbladder and Biliary Tree: Gallbladder is surgically absent. Spleen: Splenomegaly measuring up to 12.2 cm. Pancreas: The pancreas is normal in appearance without focal lesions or abnormal enhancement. Adrenal Glands: Unremarkable Kidneys: Kidneys demonstrate normal symmetric enhancement without focal lesions, calculi or hydroneph rosis. Bladder: Unremarkable Bowel: The stomach is grossly normal in appearance. Small bowel and colon are normal in caliber and d istribution. The appendix is not visualized; however, no secondary findings of acute appendicitis id entified. Ascites: Moderate abdominopelvic ascites. Lymphadenopathy: No mesenteric, retroperitoneal or periportal lymphadenopathy. Abdominal Wall and Mesentery: Unremarkable. Vasculature: The visualized abdominal aorta is normal in size and caliber. Abdominal and pelvic vess els demonstrate normal enhancement. Pelvic Organs: Unremarkable Musculoskeletal: No aggressive focal bony lesions, acute fractures or dislocation. IMPRESSION: 1. Large right pleural effusion causing near-complete collapse of the right lung. Consider thoracente sis or chest tube for further evaluation. 2. Moderate abdominopelvic ascites. 3. Cirrhotic liver. 4. Splenomegaly 5. No suspicious mass identified although evaluation is extremely limited in the absence of IV contra st
--- NOTE | 2025-01-06 15:13 | RADIOLOGY REPORT ---
CLINICAL INFORMATION: 59 years old, Female; cellulitis. TECHNIQUE: Axial CT images of the maxillofacial region were obtained without contrast. Coronal and sa gittal reformatted images were obtained, reviewed, and stored. One or more of the following dose redu ction techniques were used: Automated exposure control. Adjustment of mA and/or kV according to patie nt size. CTDIvol = 54.63 mGy DLP = 933.05 mGy-cm COMPARISON: CT CT HEAD on DOS: 08/12/24, CT FACIAL BONES/SOFT TISSUE on DOS: 03/31/20 FINDINGS: There is moderate soft tissue stranding along the right side of the face, most prominent n ear the right side of the body of the mandible. The patient is partially edentulous. There are promin ent dental caries in the right mandibular molar teeth and areas of periapical lucency. There is adjac ent soft tissue edema, possible phlegmon in the appropriate clinical setting, although not well evalu ated on noncontrast enhanced exam. There are multiple additional dental caries. Globes and orbital st ructures appear intact. No orbital cellulitis. There is near complete opacification of the left maxil nav sinus. Sinus gonzalez and orbital gonzalez appear intact. IMPRESSION: 1. Soft tissue stranding along the right side of the face, most prominent near the right mandibular b jeremy, likely cellulitis in the appropriate clinical setting. 2. Dental disease as described above, most prominent involving the right mandibular molar teeth, whic h may be the source of the cellulitis along the right side of the face. There is adjacent ill-defined soft tissue edema locules of gas, possible phlegmon, although not well evaluated on noncontrast enha nced exam. 3. Left maxillary sinusitis. 4. Mild right pre malar and periorbital soft tissue swelling, possible cellulitis in the appropriate clinical setting. No evidence for orbital cellulitis. Correlate with clinical findings.
[2025-01-06] MEDS: methylPREDNISolone sod succ/PF 40mg inj. IV SCH (16:16)
[2025-01-06] MEDS: piperacillin/tazo 3.375gm/50ml 50 ML IV SCH (16:16)
[2025-01-06] MEDS: potassium Cl 20 mEq SR tablet PO PRN (17:57)
[2025-01-06] MEDS ORDERED: DEXTROSE 15 GM of carb/4 tabs (each vial/BOTTLE has 4 tablets) PO PRN ×2 (18:25)
[2025-01-06] MEDS ORDERED: glucagon, human recombinant 1mg kit SUBCUT PRN (18:25)
[2025-01-06] MEDS ORDERED: dextrose 50%-water 50ml dispensing syringe IV PRN ×2 (18:25)
[2025-01-06] MEDS: K and/or MAG REPLACEMENT MC SCH (20:00)
[2025-01-06] MEDS ORDERED: LISI10TA27 PO (20:06)
[2025-01-06] MEDS: INSULIN LISPRO 100 UNIT/ML INSULN.PEN MULTI-DOSE SQ SCH (21:00)
[2025-01-06] MEDS: lactulose 20gm/30ml cup PO SCH (21:06)
[2025-01-06] MEDS: insulin glargine (Lantus) pen - multi-dose SQ SCH (21:10)
[2025-01-06] MEDS: docusate sod 100mg capsule PO SCH (21:11)
[2025-01-06] MEDS: INSULIN LISPRO 100 UNIT/ML INSULN.PEN MULTI-DOSE SQ ONE (21:26)
[2025-01-06] MEDS: insulin glargine (Lantus) pen - multi-dose SQ ONE (21:27)
[2025-01-06] MEDS: hydrALAZINE 20mg/ml inj. IV PRN (22:52)
[2025-01-07] VITALS (13 sets, daily range): BP systolic 146–172; BP diastolic 85–105; PULSE 86–108; RESP 13–22; TEMP 96.9–98.2; O2SAT 91–98
--- NOTE | 2025-01-07 00:08 | RADIOLOGY REPORT ---
CTA Chest with intravenous contrast INDICATION: POSSIBLE UNDERLYING PE COMPARISON: Same day CT chest/abdomen/pelvis TECHNIQUE: Multidetector spiral CTA of the chest was performed of the chest with intravenous contrast . PULMONARY ANGIOGRAPHY PROTOCOL was utilized using a bolus-tracking technique centered on the main p ulmonary artery. Axial, coronal and sagittal multiplanar and MIP reformats were performed. Radiation Dose : 1. Chest: CTDI volume is 27 mGy. Dose-length product is 312 mGy*cm The dose indicators for CT are the volume Computed Tomography (CT) Dose Index (CTDIvol) and the Dose Length Product (DLP), and are measured in units of mGy and mGy-cm, respectively. These indicators are not patient dose, but values generated from the CT scanner acquisition factors. The report includes radiation exposure data for exposures received during this examination. Findings: Pulmonary arteries: Technical factors adequate for assessment of the level of the segmental arteries. No evidence of filling defect. No significant enlargement of central arteries. Lower neck: Unremarkable. Lungs: Partial interval re-expansion of the right upper lobe. The right middle and lower lobes remain essentially completely collapsed. No focal consolidation in the left lung. Heart/Vascular Structures: Normal heart size. No pericardial effusion. Lymph Nodes: No adenopathy Pleura: Decreased but persistent large right pleural effusion. No pneumothorax. Musculoskeletal: Unchanged osseous structures. Soft tissues: Unchanged, cachexia. Upper abdomen: Better assessed on comparison exam. IMPRESSION: 1. No pulmonary embolism to the level of the segmental arteries. 2. Decreased but persistent large right pleural effusion with partial re-expansion of the right upper lobe. No post procedural pneumothorax.
[2025-01-07] MEDS: metoprolol tartrate 1mg/ml inj IV ONE (03:09)
[2025-01-07 04:49] LABS: LEUKOCYTE ESTERASE ,URINE NEGATIVE (Neg); NITRITES, URINE NEGATIVE (Neg); OCCULT BLOOD,URINE MODERATE (Neg)
[2025-01-07 04:50] LABS: UA COLLECTION TYPE NON-SPECIFIED
[2025-01-07 04:56] LABS: SQUAMOUS EPITHELIAL CELL,UR FEW /LPF (FEW)
[2025-01-07 06:04] LABS: MEAN PLATELET VOLUME 8.1 FL (7.4-10.4); RED CELL DISTRIBUTION WIDTH 15.4 % (11.5-14.5)
[2025-01-07 06:37] LABS: CHOL/HDL RATIO 3.6 (0.00-4.99); CREATININE 0.71 MG/DL (0.40-0.90); LDL CHOLESTEROL 116 MG/DL (50-100); TOTAL CARBON DIOXIDE 24.0 MMOL/L (24-32); eCRCL 73 ML/MIN; eGFR 85 ML/MIN
[2025-01-07] MEDS: HYDROcodone/acetaminophen 5mg/325mg tablet PO PRN (08:26)
[2025-01-07 08:50] LABS: URINE AMPHETAMINE SCREEN POSITIVE (Neg); URINE BARBITUATE SCREEN NEGATIVE (Neg); URINE BENZODIAZEPINES SCREEN NEGATIVE (Neg); URINE CANNABINOID SCREEN NEGATIVE (Neg); URINE COCAINE SCREEN NEGATIVE (Neg); URINE METHADONE SCREEN NEGATIVE (Neg); URINE OPIATE SCREEN POSITIVE (Neg); URINE PHENCYCLIDINE SCREEN NEGATIVE (Neg)
[2025-01-07] MEDS: INSULIN LISPRO 100 UNIT/ML INSULN.PEN MULTI-DOSE SQ SCH ×4 (09:00→20:42)
[2025-01-07 10:48] LABS: ABG BASE EXCESS -2.2 mmol/L (-2.0-3.0); ABG HCO3 21.4 mmol/L (21.0-28.0); ABG OXYGEN SATURATION 93.5 % (94.0-98.0); ABG PCO2 (T) 33.4 mmHg (32.0-45.0); ABG PH (T) 7.425 (7.350-7.450); ABG PO2 (T) 70.6 mmHg (83.0-108.0); ALLEN'S TEST POSITIVE; FCOHb 1.0 % (0.5-1.5); FHHb 6.4 % (0.0-5.0); FIO2 21.0 mmHg/%; FMetHb 0.3 % (0.0-1.5); FO2Hb 92.3 % (94.0-98.0); PATIENT TEMPERATURE 36.9; TOTAL HEMOGLOBIN 13.9 G/dl (12.0-16.0)
[2025-01-07 10:56] LABS: LEUKOCYTE ESTERASE ,URINE NEGATIVE (Neg); NITRITES, URINE NEGATIVE (Neg); OCCULT BLOOD,URINE SMALL (Neg)
[2025-01-07 11:09] LABS: UA COLLECTION TYPE CLN CATCH MIDSTREAM
[2025-01-07 11:11] LABS: MUCUS STRANDS NONE SEEN /LPF (Neg); SQUAMOUS EPITHELIAL CELL,UR FEW /LPF (FEW)
[2025-01-07] MEDS: labetalol 20mg/4ml (5mg/ml) syringe IV ONE (12:04)
[2025-01-07] MEDS: INSULIN LISPRO 100 UNIT/ML INSULN.PEN MULTI-DOSE SQ ONE ×2 (12:05→13:17)
[2025-01-07] MEDS: ringers solution, lacted 1,000 ML IV ONE ×6 (13:17→19:25)
--- NOTE | 2025-01-07 18:22 | CARDIOLOGY REPORT ---
APPROVED REPORT EXAM: Comprehensive 2D, Doppler, and color-flow Echocardiogram. Patient Location: 3008 A Heart Rate: 90's bpm Rhythm: SINUS Indications SHORTNESS OF BREATH HYPERTENSION DIABETES MELLITUS COPD IV DRUG USE Terminal Supervisor: NONE Previous echo: 07-10-23 [facility] EF 55%, RVSP 45 mmHg, mMR, mTR 2D Dimensions RVDd 2.3 cm IVSd 1.0 (0.7-1.1cm) LVDd 4.2 cm PWd 1.0 (0.7-1.1cm) IVSs 1.2 (0.8-1.2cm) LVDs 3.1 (2.5-4.0cm) Aortic Root(2D) 3.7 cm PWs 1.3 (0.8-1.2cm) LVOT Diameter 2.00 (1.8-2.4cm) LVEF(%) 50.3 (>50%) Ao Asc Diam.3.39 cmFS (%) 25.3 % SV 38.9 ml CO 3.6 L/min M-Mode Dimensions Left Atrium(MM) 3.04 (2.5-4.0cm) Aortic Root 2.56 (2.2-3.7cm) Aortic Cusp Exc 1.67 (1.5-2.0cm) MV EPSS 0.4 (<0.5cm) Aortic Valve AoV Peak Nathan. 133.9 cm/s AoV VTI 22.0 cm AO Peak GR. 7.2 mmHg AO Mean GR. 4 mmHg LVOT VTI 13.67 cm LVOT Peak Nathan. 94.4 cm/s ANDREW(VTI)/BSA 2.15 cm2/m2 ANDREW (VTI) 2.15 cm2 Mitral Valve MV E Velocity 76.3 cm/s MV Peak Gr. 5 mmHg MV DECEL TIME 236 ms MV A Velocity 123.0 cm/s MV PHT 68 ms E/A Ratio 0.6 MVA (PHT) 3.24 cm2 MV WMdc197.6 cm/s Tricuspid Valve TR P. Velocity 291 cm/s RAP ESTIMATE 10 mmHg TR Peak Gr. 34 mmHg RVSP 44 mmHg LEFT VENTRICLE Normal LV size with normal wall thickness. Overall systolic function is low normal. LVEF is 50%. RIGHT VENTRICLE RV is normal size and function. Elevated right heart pressures with an RVSP of 44 mmHg. ATRIA The left atrium size is normal. AORTIC VALVE Trileaflet AV appears mildly sclerotic without stenosis. Trivial insufficiency. MITRAL VALVE Mild MV annular calcification and thickened leaflets without stenosis. Trace regurgitation. TRICUSPID VALVE TV appears structurally normal with mild regurgitation. PULMONIC VALVE Normal PV without stenosis, physiologic insufficiency. PERICARDIUM Trace pericardial effusion without hemodynamic compromise. Other Information Study Quality: Technically Difficult due to patient breathing Conclusion Normal LV size with normal wall thickness. Overall systolic function is low normal. LVEF is 50%. RV is normal size and function. Elevated right heart pressures with an RVSP of 44 mmHg. The left atrium size is normal. Trileaflet AV appears mildly sclerotic without stenosis. Trivial insufficiency. Mild MV annular calcification and thickened leaflets without stenosis. Trace regurgitation. TV appears structurally normal with mild regurgitation. Trace pericardial effusion without hemodynamic compromise.
--- NOTE | 2025-01-07 19:12 | PROGRESS NOTE- Residence ---
Progress Note - Resident Providers to CC Resident Creating Document: ANA MARÍA SUTHERLAND RES CC: SHIRLEY ROBERTS MD ~ Antibiotic Timeout Antibiotic Ordered?: Yes Subjective Patient is seen and examined at bedside. Patient continues to complain of abdominal pain, very sensitive and tender to touch. Patient's blood glucose has been very uncontrollable received at least 85 units of subcutaneous short-acting insulin and for L LR bolus-blood sugars have been trending down. Patient also has been hypotensive with blood pressure in the range of 180s/90s which was amenable to one dose of IV labetalol 10 mg. Objective Vital Signs Date Time Temp Pulse Resp B/P (MAP) Pulse Ox O2 Delivery O2 Flow Rate FiO2 01/07/25 16:21 96 Room Air* 0 21 01/07/25 15:00 97.2 94 18 155/88 (110) Result Diagram: 01/07/25 0516 01/07/25 1429 General: Alert, awake, confused, in acute distress HEENT: PERRLA, no icterus, pallor, lymphadenopathy, carotid bruit Respiratory system: Decreased breath sounds in the right side, bilateral crackles heard CVS: S1-S2 heard, grade 3/6 HSM with radiation to the tricuspid and pulmonary area. GI: Generalized tenderness of the abdomen present, distended, fluid thrill present, Soft, organomegaly could not be examined in view of tense abdomen, no guarding/rigidity, bowel sounds present Neuro: No focal neurological deficits present Extremities: Spider angiomata present in the chest region, Surgical scar present in the right forearm, No edema cyanosis clubbing/deformities Skin: Warm and dry Coagulation Studies Laboratory Tests Test 01/06/25 13:10 D-Dimer 1.67 MG/L FEU (0-0.50) H D-Dimer Comment Assessment Assessment A 59-year-old female with PMH of HTN, type 2 DM, alcoholic liver cirrhosis presented to the ED in view of shortness of breaths, cough, pain abdomen and chin pain that worsened over the last three days. On Further evaluation patient was found to have cellulitis of the right mandible, elevated blood sugars, right sided pleural effusion with possible underlying pneumonia. Patient is admitted for the evaluation management of the above. Plan Plan Acute hypoxemic respiratory failure 2/2 CAP covering Gram-negative and Gram-positive organisms Right-sided pleural effusion with possible underlying atelectasis HFrEF, not in acute exacerbation PE, ruled out; endocarditis, ruled out CTA chest: Decreased but persistent large right pleural effusion with partial re-expansion of the right upper lobe. No post procedural pneumothorax. Echo: EF: 50%-we will consider optimization with GDM T once the patient stabilizes Elevated C-reactive protein, normal procalcitonin and WBC count Continue antibiotics as per below and azithromycin (end date: 01/08/2025) Incentive spirometry, flutter valve Patient received one dose of IV methylprednisolone 125 mg, continue IV methylprednisolone 40 mg q.12h in view of high blood sugars Consulted ICU for right thoracentesis: Diagnostic and therapeutic. Acute metabolic/toxic encephalopathy 2/2 methamphetamine overdose, can not exclude hepatic encephalopathy Alcoholic liver cirrhosis with acute decompensation Possible SBP U tox positive for amphetamines and opiates Elevated total bilirubin, AST and alkaline phosphatase Elevated ammonia - downtrending Consulted ICU for paracentesis: Diagnostic and therapeutic Continue lactulose 20 mg p.o. q.6h Continue antibiotics as per below, we will be started on Lasix and spironolactone after stabilization of blood glucose Right mandible cellulitis Pre malar and periorbital Soft tissue infection Continue IV Zosyn and IV vancomycin (day two) Follow up with cultures Pain management Type 2 DM, uncontrolled Hyperglycemia HB A1c >12 Patient is started on hypoglycemia/hyperglycemia protocol Switch to Lantus 30 units b.i.d., lispro 20 units t.i.d. after meals, high-dose sliding scale insulin Continue to monitor blood sugars Q one H until blood glucose dropped down to less than 250 mg/dL Patient received about 85 units of short-acting insulin, 4 L LR boluses. HTN Continue home meds lisinopril 10 mg once daily IV labetalol 10 mg p.r.n. for SBP greater than 180 mg, hold if SBP less than 100 mmHg Right Bacterial conjunctivitis Ciprofloxacin eyedrops q.6h COPD, not in acute exacerbation DuoNeb q.4 p.r.n. 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
[2025-01-07] MEDS: lactulose 20gm/30ml cup PO SCH (20:28)
[2025-01-07] MEDS: methylPREDNISolone sod succ/PF 40mg inj. IV SCH (20:28)
[2025-01-07] MEDS: insulin glargine (Lantus) pen - multi-dose SQ SCH (20:59)
[2025-01-07 23:56] LABS: CREATININE 0.70 MG/DL (0.40-0.90); TOTAL CARBON DIOXIDE 26.0 MMOL/L (24-32); eCRCL 74 ML/MIN; eGFR 86 ML/MIN
[2025-01-08] VITALS (22 sets, daily range): BP systolic 131–184; BP diastolic 68–98; PULSE 84–115; RESP 15–20; TEMP 97.3–98.7; O2SAT 88–97
[2025-01-08] MEDS: VANCOMYCIN LEVEL IV ONE (01:39)
[2025-01-08 05:36] LABS: MEAN PLATELET VOLUME 7.9 FL (7.4-10.4); RED CELL DISTRIBUTION WIDTH 15.2 % (11.5-14.5)
[2025-01-08 06:14] LABS: CREATININE 0.69 MG/DL (0.40-0.90); TOTAL CARBON DIOXIDE 23.6 MMOL/L (24-32); eCRCL 75 ML/MIN; eGFR 88 ML/MIN
[2025-01-08] MEDS: lactobacillus rhamnosus 10,000 MMU CELLS/CAPSULE PO SCH ×2 (08:03→08:19)
[2025-01-08] MEDS: lactulose 20gm/30ml cup PO SCH (08:25)
[2025-01-08 09:55] LABS: INR 1.3 INR
--- NOTE | 2025-01-08 13:41 | CONSULTATION REPORT - RESIDENT ---
Consult Providers to CC Resident Creating Document: JEANA JONES RES History of Present Illness Reason for Admit\Complaint: Shortness of breaths History of Present Illness 59 years old female with history of uncontrolled diabetes mellitus, CHF with reduced ejection fraction, IV drug abuser med amphetamine positive, homeless, hepatitis, cirrhosis presented to the ED due to shortness of breaths and dry cough and chest tightness which started about one week ago, exacerbated with exertion and associated with orthopnea. She she had history of cirrhosis and reported upper quadrant abdominal pain which has been getting worse recently. Denied diarrhea or changing in bowel movement recently. Denied fever or chills. She also reported right jaw swelling and pain which recently started. She had poor dental hygiene. She also experienced of foreign particle in her eye couple of days ago and she could remove it since then she had some swelling and itching. No any discharge or visual changes reported Hospitalist team requested Infectious Disease consult. Allergies: Coded Allergies: No Known Allergies (Unverified , 01/06/25) Home Medications Home Medications Active [facility] Rx Capsule (Lactobacillus Casei/Folic Acid) 60 Mg (200 Billion Cell)- 1.25 Mg Capsule 1 Cap PO DAILY 30 Days Ciprofloxacin HCl (Ciprofloxacin) 500 Mg Tab 1 Tab PO BID Flagyl* (Metronidazole) 500 Mg Tablet 1 Tab PO Q8H Basaglar Kwikpen U-100 (Insulin Glargine,Hum.rec.anlog) 100 Unit/Ml (3 Ml) Insuln.pen 30 Unit SQ QDD 30 Days Reported Lisinopril 10 Mg Tablet 1 Tab PO DAILY Humalog Onur Kwikpen (Insulin Lispro) 100 Unit/Ml Ins.pen.hf 5 SQ BEFORE MEALS Atorvastatin Calcium 20 Mg Tablet 1 Tab PO DAILY Spironolactone 25 Mg Tablet 1 Tab PO DAILY Basaglar Kwikpen U-100 (Insulin Glargine,Hum.rec.anlog) 100 Unit/Ml (3 Ml) Insuln.pen 30 Units SQ DAILY Furosemide 20 Mg Tablet 1 Tab PO DAILY Past Medical History Past Medical History Hypertension Uncontrolled diabetes mellitus Hepatitis Alcoholic liver cirrhosis History of IV drug abuse, positive methamphetamine currently CHF with reduced ejection fraction COPD Past Surgical History Surgical History Comment Cholecystectomy Family History Family History: FH: HTN (hypertension) MOTHER, , Age: 72 FH: diabetes mellitus MOTHER, , Age: 72 Thyroid disease MOTHER, , Age: 72 Past Social History Social History Comment Smoke cigarettes one pack a day for a long time Smoke marijuana and methamphetamine, denied any injection drug however had history of remote IV drug abuser Homeless Denied drinking alcohol recently ROS ROS The history of present illness included a review of system, which yielded relevant positives and negatives Exam Vitals: Vital Signs Date Time Temp Pulse Resp B/P (MAP) Pulse Ox O2 Delivery O2 Flow Rate FiO2 01/08/25 13:04 115 17 134/83 (100) 94 Nasal Cannula 2.0 01/08/25 11:25 21 01/08/25 11:00 98.7 General: General: Awake and Alert, on mild acute distress. HEENT: Conjunctiva pale, Sclera clear, Mucus Membranes dry Right eye: Moderate eyelid swelling, no any discharge, subconjunctival hemorrhage Mouth: Poor dental hygiene, right side and buccal area had small vesicle/ulcer close to broken teeth Neck: Supple without masses and tenderness. Resp: Decreased breath sounds on the right side Heart: Regular Rate and rhythm, normal S1 and S2 Abdomen: Mildly distended and tender on the right upper quadrant and Extremities: No cyanosis,clubbing or edema. Skin: Spider angioma on the chest Neurological: Speech is clear, alert, and oriented x 4, Diagnostic Data Last Recorded Lab Results: 01/08/25 0511 01/08/25 0511 Diagnostic Data: Laboratory Tests Test 01/06/25 13:10 01/08/25 08:49 D-Dimer 1.67 MG/L FEU (0-0.50) H D-Dimer Comment Prothrombin Time 12.7 SECONDS (9.0-12.0) H INR International Normalized Ratio 1.3 INR Coagulation Comments Additional Plan 59 years old female with history of IV drug abuser, positive methamphetamine, homeless, uncontrolled diabetes mellitus, hypertension, CHF with reduced ejection fraction, cirrhosis and hepatitis presented to the ED due to cough and shortness of breath. Acute respiratory failure Community-acquired pneumonia Right-sided pleural effusion ESR 43, normal procalcitonin CTA negative for PE, Decreased but persistent large right pleural effusion with partial re-expansion of the right upper lobe. Blood culture negative after 2 days Pending thoracentesis and paracentesis Patient o this is n Zosyn and vancomycin Not any previous hospitalization or antibiotic therapy, we will change the antibiotic to ceftriaxone 2 g and clindamycin to cover anaerobes. Recommended to decrease the dose of steroids. Mild Swelling of right side of face Conjunctivitis, subconjunctival hemorrhage Mandibular cellulitis/ Infected Molar tooth/dental phlegmon CT of the face : 1, Soft tissue stranding along the right side of the face, most prominent near the right mandibular body, likely cellulitis in the appropriate clinical setting. 2. Dental disease as described above, most prominent involving the right mandibular molar teeth, which may be the source of the cellulitis along the right side of the face. There is adjacent ill-defined soft tissue edema locules of gas, possible phlegmon, although not well evaluated on noncontrast enhanced exam. 3. Left maxillary sinusitis. 4. Mild right pre malar and periorbital soft tissue swelling, possible cellulitis in the appropriate clinical setting. No evidence for orbital cellulitis. Correlate with clinical findings. On vancomycin and Zosyn, we will DC vancomycin and Zosyn and started ceftriaxone 2 g and clindamycin Decompensated cirrhosis Possible SBP CT of abdomen and pelvic showed: Large right pleural effusion causing near- complete collapse of the right lung. Moderate abdominopelvic ascites. Pending paracentesis, on ceftriaxone for SBP, On lactulose and Lasix and spironolactone Managed by hospitalist team Jeana Jones MD Infectious disease consult note Agree with above note. Patient seen and examined. Discussed with Dr. Jones. We will treat with ceftriaxone and clindamycin for now. Follow up pleural fluid studies. Date of Service: Jan 08, 2025 Billing Provider: NICOLETTE GUPTA MD, ELAHE, SANA Jan 08, 2025 13:41 NICOLETTE GUPTA MD Jan 08, 2025 18:45
[2025-01-08 14:03] LABS: GLUCOSE,BODY FLUID 310 MG/DL; LDH,BODY FLUID 50 U/L
--- NOTE | 2025-01-08 14:06 | PROGRESS NOTE- Residence ---
Progress Note - Resident Providers to CC Resident Creating Document: ANA MARÍA SUTHERLAND RES CC: SHIRLEY ROBERTS MD ~ Antibiotic Timeout Antibiotic Ordered?: Yes Subjective Patient is seen and examined at bedside. Patient continues to complain of abdominal pain, expresses that her infection of the eye and discomfort is much better. Patient's blood sugar dropped to 110 last night requiring holding of short-acting scheduled dose of insulin. Objective Vital Signs Date Time Temp Pulse Resp B/P (MAP) Pulse Ox O2 Delivery O2 Flow Rate FiO2 01/08/25 13:34 104 01/08/25 13:33 20 01/08/25 13:04 134/83 (100) 94 Nasal Cannula 2.0 01/08/25 11:25 21 01/08/25 11:00 98.7 Result Diagram: 01/08/25 0511 01/08/25 0511 General: Alert, awake, confused, in acute distress HEENT: PERRLA, no icterus, pallor, lymphadenopathy, carotid bruit Respiratory system: Decreased breath sounds in the right side, bilateral crackles heard CVS: S1-S2 heard, grade 3/6 HSM with radiation to the tricuspid and pulmonary area. GI: Generalized tenderness of the abdomen present, distended, fluid thrill present, Soft, organomegaly could not be examined in view of tense abdomen, no guarding/rigidity, bowel sounds present Neuro: No focal neurological deficits present Extremities: Spider angiomata present in the chest region, Surgical scar present in the right forearm, No edema cyanosis clubbing/deformities Skin: Warm and dry Coagulation Studies Laboratory Tests Test 01/06/25 13:10 01/08/25 08:49 D-Dimer 1.67 MG/L FEU (0-0.50) H D-Dimer Comment Prothrombin Time 12.7 SECONDS (9.0-12.0) H INR International Normalized Ratio 1.3 INR Coagulation Comments Assessment Assessment A 59-year-old female with PMH of HTN, type 2 DM, alcoholic liver cirrhosis presented to the ED in view of shortness of breaths, cough, pain abdomen and chin pain that worsened over the last three days. On Further evaluation patient was found to have cellulitis of the right mandible, elevated blood sugars, right sided pleural effusion with possible underlying pneumonia. Patient is admitted for the evaluation management of the above. Plan Plan Acute hypoxemic respiratory failure 2/2 CAP covering Gram-negative and Gram-positive organisms Right-sided pleural effusion s/p thoracocentesis on 01/08/2025 Possible underlying atelectasis HFrEF, not in acute exacerbation PE, ruled out; endocarditis, ruled out Follow up with a repeat C-reactive protein and procalcitonin, elevated WBC count Continue antibiotics as per below and completed three day course of azithromycin Incentive spirometry, flutter valve Continue IV methylprednisolone 40 mg q.12h in view of high blood sugars Started the patient on IV Lasix 40 mg, Aldactone 25 mg, carvedilol 3.125 mg b.i.d., Jardiance 10 mg once daily 2800 mL of straw-colored pleural fluid taken out from the right side, awaiting diagnostic results Leukocytosis, probably reactive Probably secondary to the use of steroids Follow up with procalcitonin We will consider going lower on the steroid dose. Acute metabolic/toxic encephalopathy, improving 2/2 methamphetamine overdose, can not exclude hepatic encephalopathy Alcoholic liver cirrhosis with acute decompensation Possible SBP U tox positive for amphetamines and opiates Thirty bilirubin normal, AST and alkaline phosphatase-improving Elevated ammonia - up trended, patient is AAO x4. Had three bowel movements yesterday Consulted ICU for paracentesis: Could not be done as there was not enough fluid Switched lactulose 20 mg p.o. q.6h to q.4h Continue antibiotics as per below, started on Lasix and spironolactone Right mandible cellulitis Pre malar and periorbital Soft tissue infection Continue IV Zosyn and IV vancomycin (day 3) Preliminary cultures negative Pain management ID consulted, awaiting recommendations Type 2 DM, uncontrolled Hyperglycemia HB A1c >12 Continue Lantus 30 units b.i.d., increased to lispro 25 units t.i.d. after meals, high-dose sliding scale insulin Continue to monitor blood sugars Q 2 H until blood glucose dropped down to less than 250 mg/dL HTN Continue home meds lisinopril 10 mg once daily IV labetalol 10 mg p.r.n. for SBP greater than 180 mg, hold if SBP less than 100 mmHg Right Bacterial conjunctivitis Ciprofloxacin eyedrops q.6h COPD, not in acute exacerbation DuoNeb q.4 p.r.n. 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
[2025-01-08 14:25] LABS: TOTAL PROTEIN,BODY FLUID < 2.0 G/DL
[2025-01-08 14:32] LABS: BFSOURCE RIGHT PLEURAL FLD; PLEURAL FLUID PH 7.590 (7.63-7.65)
[2025-01-08 14:33] LABS: BFSOURCE RIGHT PLEURAL FLD
[2025-01-08 14:35] LABS: BFAPPEAR CLEAR
[2025-01-08 14:36] LABS: BF RBC COUNT 19 /CU MM; BF WBC COUNT 90 /CU MM (0-1000); BFCOLOR YELLOW; BFVOLUME 32 ML; LYMPHOCYTES,BODY FLUID 19 %; MONOCYTES,BODY FLUID 69 %; NEUTROPHILS,BODY FLUID 12 %
[2025-01-08 14:37] LABS: BF MESOTHELIAL CELLS FEW
--- NOTE | 2025-01-08 14:45 | RADIOLOGY REPORT ---
EXAM: DI CHEST,SINGLE VIEW HISTORY: S/P R THORACENTESIS COMPARISON: CT CT CHEST ABDOMEN PELVIS on DOS: 01/06/25, DI CHEST,SINGLE VIEW on DOS: 01/06/25, DI CHES T,SINGLE VIEW on DOS: 08/25/24, DI CHEST,TWO VIEWS on DOS: 09/26/23, DI CHEST,SINGLE VIEW on DOS: TECHNIQUE: Portable upright AP view of the chest was performed. FINDINGS/IMPRESSION: 1. Status post thoracentesis with decreased right pleural effusion and improved aeration of the right lung. There is continued consolidation in the right lung base with small residual right pleural effu isabel. 2. Small right apical pneumothorax measures 10 mm. Recommend short interval follow-up chest x-ray an d administration of oxygen per nasal cannula if thoracostomy tube placement is not planned. 3. The left lung is clear. Critical findings Critical Result: Right pneumothorax after thoracentesis. Findings discussed with the patient's nurse in the hospital floor at 01/08/2025 04:39 PM CDT, and ack nowledged receipt and understanding of the findings.
--- NOTE | 2025-01-08 15:24 | RADIOLOGY REPORT ---
CHEST RADIOGRAPH Indication: r/o pneumothorax Technique: Portable upright AP view of the chest was performed. Comparison: DI CHEST,SINGLE VIEW on DOS: 01/08/25, CT CTA CHEST PE W/ IV CONTRAST on DOS: 01/06/25, CT CT CHEST ABDOMEN PELVIS on DOS: 01/06/25, DI CHEST,SINGLE VIEW on DOS: 01/06/25, DI CHEST,SINGLE VIEW o n DOS: 08/25/24, DI CHEST,SINGLE VIEW on DOS: 01/08/25 FINDINGS: No interval change. Stable right pneumothorax. Stable right basilar opacity IMPRESSION: 1. No interval change. 2. Small right apical pneumothorax measures 10 mm
[2025-01-08 16:31] LABS: CREATININE 0.65 MG/DL (0.40-0.90); eCRCL 80 ML/MIN; eGFR > 90 ML/MIN
[2025-01-08] MEDS: VANCOmycin 1250MG/NS 250ml Bag 250 ML IV SCH (17:00)
[2025-01-08] MEDS: methylPREDNISolone sod succ/PF 40mg inj. IV SCH (19:13)
[2025-01-08] MEDS: INSULIN LISPRO 100 UNIT/ML INSULN.PEN MULTI-DOSE SQ SCH (20:49)
--- NOTE | 2025-01-08 23:11 | CONSULTATION REPORT - RESIDENT ---
Consult Providers to CC Resident Creating Document: SHERWIN SENIOR CC: BRIANA LOWRY MD History of Present Illness Reason for Admit\Complaint: Cough History of Present Illness A 59-year-old female with PMH of HTN, type 2 DM, alcoholic liver cirrhosis presented to the ED in view of shortness of breaths, cough, pain abdomen and chin pain that worsened over the last three days. On Further evaluation patient was found to have cellulitis of the right mandible, elevated blood sugars, right sided pleural effusion with possible underlying pneumonia. ICU has been consulted for paracentesis and possible thoracentesis Allergies: Coded Allergies: No Known Allergies (Unverified , 01/06/25) Home Medications Home Medications Active [facility] Rx Capsule (Lactobacillus Casei/Folic Acid) 60 Mg (200 Billion Cell)- 1.25 Mg Capsule 1 Cap PO DAILY 30 Days Ciprofloxacin HCl (Ciprofloxacin) 500 Mg Tab 1 Tab PO BID Flagyl* (Metronidazole) 500 Mg Tablet 1 Tab PO Q8H Basaglar Kwikpen U-100 (Insulin Glargine,Hum.rec.anlog) 100 Unit/Ml (3 Ml) Insuln.pen 30 Unit SQ QDD 30 Days Reported Lisinopril 10 Mg Tablet 1 Tab PO DAILY Humalog Onur Kwikpen (Insulin Lispro) 100 Unit/Ml Ins.pen.hf 5 SQ BEFORE MEALS Atorvastatin Calcium 20 Mg Tablet 1 Tab PO DAILY Spironolactone 25 Mg Tablet 1 Tab PO DAILY Basaglar Kwikpen U-100 (Insulin Glargine,Hum.rec.anlog) 100 Unit/Ml (3 Ml) Insuln.pen 30 Units SQ DAILY Furosemide 20 Mg Tablet 1 Tab PO DAILY Past Medical History Past Medical History Hypertension Type 2 diabetes mellitus COPD Cirrhosis Hepatitis Past Surgical History Surgical History Comment Cholecystectomy Family History Family History: FH: HTN (hypertension) MOTHER, , Age: 72 FH: diabetes mellitus MOTHER, , Age: 72 Thyroid disease MOTHER, , Age: 72 Past Social History Social History Comment Started smoking from the age of 10 years, smokes half pack per day. Does not drink alcohol. Smokes meth. Tried to stop it for a while but relapsed back. Was homeless for a few days but currently living with a friend at home. ROS ROS All systems were reviewed except for pertinent positives mentioned in HPI Exam Vitals: Vital Signs Date Time Temp Pulse Resp B/P (MAP) Pulse Ox O2 Delivery O2 Flow Rate FiO2 01/08/25 20:00 17 95 Venturi Mask 15.0 50 01/08/25 20:00 105 01/08/25 18:00 97.3 131/79 (96) General: General: Alert, awake, confused, slightly agitated HEENT: PERRLA, no icterus, pallor, lymphadenopathy, carotid bruit Respiratory system: Decreased breath sounds in the right side, bilateral crackles CVS: S1-S2 heard, grade 3/6 HSM with radiation to the tricuspid and pulmonary area. GI: Generalized tenderness of the abdomen present, distended, fluid thrill present, Soft, organomegaly could not be examined in view of tense abdomen, no guarding/rigidity, bowel sounds present Neuro: No focal neurological deficits present Extremities: Spider angiomata present in the chest region, Surgical scar present in the right forearm, No edema cyanosis clubbing/deformities Skin: Warm and dry Diagnostic Data Last Recorded Lab Results: 01/08/25 0511 01/08/25 1543 Diagnostic Data: Laboratory Tests Test 01/06/25 13:10 01/08/25 08:49 D-Dimer 1.67 MG/L FEU (0-0.50) H D-Dimer Comment Prothrombin Time 12.7 SECONDS (9.0-12.0) H INR International Normalized Ratio 1.3 INR Coagulation Comments Additional Plan A 59-year-old female with PMH of HTN, type 2 DM, alcoholic liver cirrhosis presented to the ED in view of shortness of breaths, cough, pain abdomen and chin pain that worsened over the last three days. On Further evaluation patient was found to have cellulitis of the right mandible, elevated blood sugars, right sided pleural effusion with possible underlying pneumonia. ICU has been consulted for paracentesis and possible thoracentesis Large right pleural effusion Imaging reviewed Discussed benefits and risks of thoracentesis with the patient. She wishes to proceed Therapeutic and diagnostic thoracentesis will be performed See procedure note for further detail Ascites After abdominal ultrasound, not enough ascitic fluid was observed. No paracentesis will be performed at this time Rest as per hospitalist service Sherwin Kevin MD Internal Medicine Resident PGY-2 Date of Service: Jan 08, 2025 Billing Provider: BRIANA LOWRY MD, LEONARDO LUIS Jan 08, 2025 23:11
--- NOTE | 2025-01-08 23:19 | PROCEDURE NOTE- Residance ---
Procedure Note Providers to CC CC: BRIANA LOWRY MD ~ Planned Procedure Thoracentesis Event Organizer Dr. Lowry /Dr. Kevin Description A time out was performed and the chest x-ray and CT were reviewed, the appropriate side was confirmed and marked. My hands were washed immediately prior to the procedure. I wore a surgical cap, mask with protective eyewear, sterile gown and sterile gloves throughout the procedure. The patient was prepped and draped in a sterile manner using chlorhexidine scrub after the appropriate level was percussed and confirmed by ultrasound. 1% lidocaine was used to anesthesize the skin, subcutaneous tissue, superior aspect of the rib periosteum and parietal pleura. A finder needle was then introduced over the superior aspect of the rib to locate the pleural fluid; jb colored fluid was aspirated at a depth of approximately 3 cm. A 10-blade scalpel was used to marquis the skin at the insertion site. The [id number] needle was then introduced through the skin incision into the pleural space using negative aspiration pressure. The thoracentesis catheter was then threaded without difficulty. 2.5L ml of jb colored fluid was removed without difficulty. The catheter was then removed. No immediate complications were noted during the procedure. A post- procedure chest x-ray is pending at the time of this note. The fluid will be sent for studies. Estimated blood loss is minimal. Date of Service: Jan 08, 2025 Billing Provider: BRIANA LOWRY MDRONEL Jan 08, 2025 23:19
[2025-01-09] VITALS (19 sets, daily range): BP systolic 117–179; BP diastolic 70–92; PULSE 76–100; RESP 13–21; TEMP 97.6–98.2; O2SAT 92–97
[2025-01-09 07:06] LABS: MEAN PLATELET VOLUME 7.7 FL (7.4-10.4); RED CELL DISTRIBUTION WIDTH 15.8 % (11.5-14.5)
[2025-01-09 07:26] LABS: CREATININE 0.63 MG/DL (0.40-0.90); TOTAL CARBON DIOXIDE 26.5 MMOL/L (24-32); eCRCL 82 ML/MIN; eGFR > 90 ML/MIN
[2025-01-09] MEDS: CefTRIAXone 2gm/D5W 50ml BAG 50 ML IV SCH (08:00)
[2025-01-09] MEDS: EMPAGLIFLOZIN 10 MG TABLET PO SCH (08:59)
[2025-01-09 09:04] LABS: LACTATE DEHYDROGENASE 318 U/L (81-234)
--- NOTE | 2025-01-09 10:19 | RADIOLOGY REPORT ---
CHEST RADIOGRAPH Indication: CHANGE IN PNEUMOTHORAX Technique: Portable upright AP view of the chest was performed. Comparison: DI CHEST,SINGLE VIEW on DOS: 01/08/25, DI CHEST,SINGLE VIEW on DOS: 01/08/25, DI CHEST,SING LE VIEW on DOS: 01/06/25, DI CHEST,SINGLE VIEW on DOS: 08/25/24, DI CHEST,TWO VIEWS on DOS: 09/26/23, DI CHEST,SINGLE VIEW on DOS: 01/08/25 FINDINGS: No interval change. Stable right pneumothorax. Stable right basilar opacity IMPRESSION: 1. No interval change. 2. Trace right apical pneumothorax unchanged. Critical Findings: Stable right pneumothorax Findings discussed with SHIRLEY ROBERTS at 01/09/2025 12:17 PM STATION BAGGAGE AGENT, who acknowledged receipt and understan ding of the findings.
--- NOTE | 2025-01-09 10:49 | RADIOLOGY REPORT ---
Procedure: CT CT CHEST Reason for study/Clinical History: Pneumothorax Comparison Study: DI CHEST,SINGLE VIEW on DOS: 01/08/25, DI CHEST,SINGLE VIEW on DOS: 01/08/25, CT CTA CHEST PE W/ IV CONTRAST on DOS: 01/06/25, CT CT CHEST ABDOMEN PELVIS on DOS: 01/06/25, DI CHEST,SINGLE VIEW on DOS: 01/06/25 TECHNIQUE: Multidetector CT of the chest was performed from the lung apices to the upper abdomen with out the use of intravenous contract. Axial, coronal and sagittal multiplanar reformats were performed . Radiation Dose Information: CT Dose: CTDI volume is 7.3 mGy. Dose-length product is 287.2 mGy*cm The dose indicators for CT are the volume Computed Tomography (CT) Dose Index (CTDIvol) and the Dose Length Product (DLP), and are measured in units of mGy and mGy-cm, respectively. These indicators are not patient dose, but values generated from the CT scanner acquisition factors. The report includes radiation exposure data for exposures received during this examination. FINDINGS: Lower neck: Unremarkable. Lungs: Multifocal right lung airspace disease. Right lower lobe compressive atelectasis. Heart/Vascular Structures: Normal heart size. No pericardial effusion. Lymph Nodes: No adenopathy Pleura: Small left pleural effusion. Moderate to large right pleural effusion. Small right pneumothorax. Musculoskeletal: No acute osseous abnormality. Soft tissues: Diffuse body wall edema. Small volume subcutaneous emphysema at the posterolateral righ t chest. Upper abdomen: Nodular hepatic contour suggestive of cirrhosis. IMPRESSION: Small right pneumothorax. Moderate to large right pleural effusion. Multifocal right lung airspace disease and right lower lobe compressive atelectasis.
--- NOTE | 2025-01-09 13:29 | RADIOLOGY REPORT ---
PROCEDURE: ULTRASOUND GUIDED THORACENTESIS USING TEMPORARY CATHETER HISTORY: Pleural effusion DOCUMENTATION: Informed consent was obtained and a procedural time out was performed. FINDINGS: The risks and benefits of the procedure including bleeding, infection and pneumothorax were explained to the patient and written informed consent obtained. Optimal site for puncture long the right posterior chest wall was determined using real-time ultraso und and the region sterilized. Local anesthesia was instilled. A 5 Urdu catheter was then advanced into the pleural space and 0.3 liters of straw colored fluid was removed. The patient tolerated the procedure well. IMPRESSION: Ultrasound guided right thoracentesis. Procedure by Dr. Covarrubias.
--- NOTE | 2025-01-09 16:00 | PROGRESS NOTE- Residence ---
Progress Note - Resident Providers to CC Resident Creating Document: JEANA JONES RES ~ Antibiotic Timeout Antibiotic Ordered?: Yes Subjective Patient seen and examined at the bedside, still complaining of shortness of breaths and abdominal pain. Objective Vital Signs Date Time Temp Pulse Resp B/P (MAP) Pulse Ox O2 Delivery O2 Flow Rate FiO2 01/09/25 15:31 90 16 Nasal Cannula 3.0 01/09/25 15:24 95 N/A 01/09/25 12:50 128/70 (89) 01/09/25 11:00 97.8 Result Diagram: 01/09/2562701/09/25627 General: Awake and Alert, on mild acute distress. HEENT: Conjunctiva pale, Sclera clear, Mucus Membranes moist Right eye: Moderate eyelid swelling, no any discharge, subconjunctival hemorrhage Mouth: Poor dental hygiene, right side and buccal area had small vesicle/ulcer close to broken teeth Neck: Supple without masses and tenderness. Resp: Decreased breath sounds on the right side Heart: Regular Rate and rhythm, normal S1 and S2 Abdomen: Mildly distended and tender on the right upper/lower quadrant Extremities: No cyanosis,clubbing or edema. Skin: Spider angioma on the chest Neurological: Speech is clear, alert, and oriented x 4, Coagulation Studies Laboratory Tests Test 01/06/25 13:10 01/08/25 08:49 D-Dimer 1.67 MG/L FEU (0-0.50) H D-Dimer Comment Prothrombin Time 12.7 SECONDS (9.0-12.0) H INR International Normalized Ratio 1.3 INR Coagulation Comments Assessment Assessment A 59-year-old female with PMH of HTN, type 2 DM, alcoholic liver cirrhosis presented to the ED in view of shortness of breaths, cough, pain abdomen and chin pain that worsened over the last three days. On Further evaluation patient was found to have cellulitis of the right mandible, elevated blood sugars, right sided pleural effusion with possible underlying pneumonia. Patient is admitted for the evaluation management of the above. Plan Plan 59 years old female with history of IV drug abuser, positive methamphetamine, cirrhosis and hepatitis homeless, uncontrolled diabetes mellitus, hypertension, CHF with reduced ejection fraction, presented to the ED due to cough and shortness of breath. Acute respiratory failure Community-acquired pneumonia Right-sided pleural effusion ESR 43, normal procalcitonin CTA negative for PE, Decreased but persistent large right pleural effusion with partial re-expansion of the right upper lobe. Blood culture negative after 3 days Thoracentesis showed transudate pattern, however due to shortness of breath and reaccumulating fluid, chest tube will be placed today by ICU team, possibly it is due to decompensated cirrhosis Repeated chest CT scan showed: Moderate to large pleural effusion Patient was on Zosyn and vancomycin we changed the antibiotic to ceftriaxone 2 g and clindamycin to cover anaerobes for possible dental phlegmon as well decreased the methylprednisolone dose to 30 b.i.d., please taper off Mild Swelling of right side of face Conjunctivitis, subconjunctival hemorrhage Mandibular cellulitis/ Infected Molar tooth/dental phlegmon CT of the face : 1, Soft tissue stranding along the right side of the face, most prominent near the right mandibular body, likely cellulitis in the appropriate clinical setting. 2. Dental disease as described above, most prominent involving the right mandibular molar teeth, which may be the source of the cellulitis along the right side of the face. There is adjacent ill-defined soft tissue edema locules of gas, possible phlegmon, although not well evaluated on noncontrast enhanced exam. 3. Left maxillary sinusitis. 4. Mild right pre malar and periorbital soft tissue swelling, possible cellulitis in the appropriate clinical setting. No evidence for orbital cellulitis. Correlate with clinical findings. On vancomycin and Zosyn, DCed vancomycin and Zosyn continue ceftriaxone 2 g and clindamycin 600 Q 6, day 2 Decompensated cirrhosis Possible SBP CT of abdomen and pelvic showed: Large right pleural effusion causing near- complete collapse of the right lung. Moderate abdominopelvic ascites. Paracentesis was not done due to inadequate fluid however patient getting chest tube today due to reaccumulation of fluid in the chest on ceftriaxone for SBP, On lactulose and Lasix and spironolactone Managed by hospitalist team Jeana Jones MD Infectious disease consult note Agree with above note. Patient seen and examined with Dr. Jones. CT with evidence of small right pneumothorax, significant pleural effusion and opacity consistent with pneumonia. We will continue current antibiotics. Date of Service: Jan 09, 2025 Billing Provider: NICOLETTE GUPTA MD, ELAHE, RES Jan 09, 2025 16:00 NICOLETTE GUPTA MD Jan 09, 2025 18:34
--- NOTE | 2025-01-09 16:30 | PROGRESS NOTE- Residence ---
Progress Note - Resident Providers to CC Resident Creating Document: ANA MARÍA SUTHERLAND RES CC: SHIRLEY ROBERTS MD ~ Antibiotic Timeout Antibiotic Ordered?: Yes Subjective Patient is seen and examined at bedside. Patient states that her shortness of breaths has improved and feels much better. Patient continues to complain of abdominal pain. No acute overnight events. Patient's blood glucose is controlled. Objective Vital Signs Date Time Temp Pulse Resp B/P (MAP) Pulse Ox O2 Delivery O2 Flow Rate FiO2 01/09/25 15:31 90 16 Nasal Cannula 3.0 01/09/25 15:24 95 N/A 01/09/25 12:50 128/70 (89) 01/09/25 11:00 97.8 Result Diagram: 01/09/2562701/09/25627 General: Alert, awake, confused, in acute distress HEENT: PERRLA, no icterus, pallor, lymphadenopathy, carotid bruit Respiratory system: Breath sounds on the right side (improved), bilateral crackles heard, chest tube placed on the rt side CVS: S1-S2 heard, grade 3/6 HSM with radiation to the tricuspid and pulmonary area. GI: Generalized tenderness of the abdomen present, distended, fluid thrill present, Soft, organomegaly could not be examined in view of tense abdomen, no guarding/rigidity, bowel sounds present Neuro: No focal neurological deficits present Extremities: Spider angioma present in the chest region, Surgical scar present in the right forearm, No edema cyanosis clubbing/deformities Skin: Warm and dry Coagulation Studies Laboratory Tests Test 01/06/25 13:10 01/08/25 08:49 D-Dimer 1.67 MG/L FEU (0-0.50) H D-Dimer Comment Prothrombin Time 12.7 SECONDS (9.0-12.0) H INR International Normalized Ratio 1.3 INR Coagulation Comments Assessment Assessment A 59-year-old female with PMH of HTN, type 2 DM, alcoholic liver cirrhosis presented to the ED in view of shortness of breaths, cough, pain abdomen and chin pain that worsened over the last three days. On Further evaluation patient was found to have cellulitis of the right mandible, elevated blood sugars, right sided pleural effusion with possible underlying pneumonia. Patient is admitted for the evaluation and management of the above. Thoracentesis with 2800 mL of fluid was removed on 01/08/25. Patient developed 10 mm pneumothorax and developed fluid again day requiring chest tube placement. Plan Plan Acute hypoxemic respiratory failure 2/2 CAP covering Gram-negative and Gram-positive organisms Rt sided exudative pleural effusion, recurrent s/p chest tube placement on 01/09/2025 Can not exclude underlying atelectasis Small pneumothorax HFrEF, not in acute exacerbation PE & endocarditis, ruled out Repeat chest x-ray revealed unchanged apical pneumothorax CT chest: Moderate to large right pleural effusion with right lower lobe compressive atelectasis Repeat C-reactive protein downtrending and normal procalcitonin, downtrending WBC count Continue antibiotics as per below and completed 3 day course of azithromycin Incentive spirometry, flutter valve Changed IV methylprednisolone to 30 mg q.12h Continue IV Lasix 40 mg, Aldactone 25 mg, carvedilol 3.125 mg b.i.d., Jardiance 10 mg once daily Lights criteria: Pl Fluid/Sr protein: 0.3, Pl Fluid/Sr LDH: 0.16, Pl Fluid LDH < 2/3 rd the upper normal limit - transudative most likely secondary to liver cirrhosis Patient had recurrent pleural effusion onto the right side requiring chest tube placement on 01/09/2025. Conservative management for pneumothorax Leukocytosis, probably reactive Probably secondary to the use of steroids Normal procalcitonin Decreased the dose of steroids Acute metabolic/toxic encephalopathy, improving 2/2 methamphetamine overdose, can not exclude hepatic encephalopathy Alcoholic liver cirrhosis with acute decompensation Possible SBP U tox positive for amphetamines and opiates bilirubin normal, AST and alkaline phosphatase-improving Elevated ammonia - up trending patient is AAO x4. Had for bowel movements through today Paracentesis could not be done as there was not enough fluid Continue lactulose 20 mg p.o. q.4h Continue antibiotics as per below, started on Lasix and spironolactone Right mandible cellulitis Pre malar and periorbital Soft tissue infection Antibiotics changed to Rocephin and clindamycin per ID. Appreciate recommendations Cultures negative for three days Pain management Type 2 DM, uncontrolled Hyperglycemia HB A1c >12 Continue Lantus 30 units b.i.d., increased to lispro 25 units t.i.d. after meals, high-dose sliding scale insulin Continue blood sugar monitoring HTN Continue home meds lisinopril 10 mg once daily IV labetalol 10 mg p.r.n. for SBP greater than 180 mg, hold if SBP less than 100 mmHg Right Bacterial conjunctivitis Ciprofloxacin eyedrops q.6h COPD, not in acute exacerbation DuoNeb q.4 p.r.n. 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
--- NOTE | 2025-01-09 16:36 | PROCEDURE NOTE- Residance ---
Procedure Note Providers to CC CC: BRIANA LOWRY MD ~ Indications Chest tube placement Jail Guard Dr Lowry / Dr. Kevin Description A time out was performed and after the chest x-ray was reviewed, the appropriate side was confirmed and marked. My hands were washed immediately prior to the procedure. I wore a surgical cap, mask with protective eyewear, sterile gown and sterile gloves throughout the procedure. The patient was prepped and draped in a sterile manner using chlorhexidine scrub after the patient was positioned in the usual fashion. A total of 10 ml of 1% lidocaine was used to anesthesize the skin, subcutaneous tissue, superior aspect of the rib periosteum and parietal pleura. A percutaneous needle was used to access the pleural cavity, then a guide wire was introduced. Dilators were used to facilitate introduction of the chest tube. A 12F pigtail was then inserted over the wire. The chest tube was sutured to the skin at the insertion site, and connected securely with tape to a pleurovac. A sterile occlusive dressing was placed over the insertion site. No immediate complications were noted. A post-procedure chest x-ray is pending at the time of this note. Estimated blood loss is minimal. Date of Service: Jan 09, 2025 Billing Provider: BRIANA LOWRY MDRONEL Jan 09, 2025 16:36
--- NOTE | 2025-01-09 16:41 | PROGRESS NOTE- Residence ---
Progress Note - Resident Providers to CC Resident Creating Document: SHERWIN SENIOR CC: BRIANA LOWRY MD ~ Antibiotic Timeout Antibiotic Ordered?: Yes Subjective Patient seen and examined at the bedside, still complaining of shortness of breaths and abdominal pain. Objective Vital Signs Date Time Temp Pulse Resp B/P (MAP) Pulse Ox O2 Delivery O2 Flow Rate FiO2 01/09/25 15:31 90 16 Nasal Cannula 3.0 01/09/25 15:24 95 N/A 01/09/25 12:50 128/70 (89) 01/09/25 11:00 97.8 Result Diagram: 01/09/2562701/09/25627 General: Alert, awake, confused, slightly agitated/anxious HEENT: No pallor present, no icterus, moist mucous membranes Neck: No masses and tenderness Resp: Slightly labored. Breath sounds are decreased on the right Chest: Normal expansion Cardiovascular: Regular Rate and rhythm, normal S1 and S2 without murmur, rub or gallop Abdomen: Distended, Soft and nontender, no organomegaly, no guarding and rigidity, bowel sounds present Neuro: No focal weakness in the upper and lower limb muscles, power of the muscles 5/5 bilateral upper and lower extremities, normal reflexes bilaterally. Cranial nerves intact Extremities: No cyanosis,clubbing or edema Skin: Warm and Dry. No lesions Psych: Normal affect Coagulation Studies Laboratory Tests Test 01/06/25 13:10 01/08/25 08:49 D-Dimer 1.67 MG/L FEU (0-0.50) H D-Dimer Comment Prothrombin Time 12.7 SECONDS (9.0-12.0) H INR International Normalized Ratio 1.3 INR Coagulation Comments Assessment Assessment A 59-year-old female with PMH of HTN, type 2 DM, alcoholic liver cirrhosis presented to the ED in view of shortness of breaths, cough, pain abdomen and chin pain that worsened over the last three days. On Further evaluation patient was found to have cellulitis of the right mandible, elevated blood sugars, right sided pleural effusion with possible underlying pneumonia. Patient is admitted for the evaluation management of the above. Plan Plan Large right pleural effusion Repeated CT was performed due to pneumothorax observed on post thoracentesis x- ray, which showed again significant right pleural effusion We suspect there is a diaphragmatic defect that is allowing ascitic fluid to go into the lung Discussed benefits and risks of chest tube placement with the patient. She wishes to proceed Will place a pigtail chest tube See procedure note for further detail Rest as per hospitalist service Sherwin Kevin MD Internal Medicine Resident PGY-2 Date of Service: Jan 09, 2025 Billing Provider: BRIANA LOWRY MD, LEONARDO LUIS Jan 09, 2025 16:41
[2025-01-10] VITALS (17 sets, daily range): BP systolic 142–185; BP diastolic 84–95; PULSE 66–90; RESP 10–20; TEMP 97.1–98; O2SAT 92–98
[2025-01-10] MEDS ORDERED: glucagon, human recombinant 1mg kit SUBCUT PRN (01:00)
[2025-01-10] MEDS ORDERED: dextrose 50%-water 50ml dispensing syringe IV PRN ×2 (01:00)
[2025-01-10] MEDS ORDERED: DEXTROSE 15 GM of carb/4 tabs (each vial/BOTTLE has 4 tablets) PO PRN ×2 (01:00)
[2025-01-10] MEDS: VANCOMYCIN LEVEL IV ONE (01:36)
[2025-01-10 07:01] LABS: MEAN PLATELET VOLUME 7.9 FL (7.4-10.4); RED CELL DISTRIBUTION WIDTH 15.7 % (11.5-14.5)
[2025-01-10 07:09] LABS: CREATININE 0.70 MG/DL (0.40-0.90); TOTAL CARBON DIOXIDE 23.4 MMOL/L (24-32); eCRCL 74 ML/MIN; eGFR 86 ML/MIN
[2025-01-10] MEDS: INSULIN LISPRO 100 UNIT/ML INSULN.PEN MULTI-DOSE SQ SCH (08:39)
[2025-01-10 09:18] LABS: INR 1.2 INR
--- NOTE | 2025-01-10 11:21 | RADIOLOGY REPORT ---
EXAM: DI CHEST,SINGLE VIEW Indication: chest tube and fluid Technique: Single frontal view of the chest was obtained Comparison: DI CHEST,SINGLE VIEW on DOS: 01/09/25, CT CT CHEST on DOS: 01/09/25, DI CHEST,SINGLE VIEW o n DOS: 01/08/25, DI CHEST,SINGLE VIEW on DOS: 01/08/25, CT CTA CHEST PE W/ IV CONTRAST on DOS: 01/06/25 FINDINGS: Lines and Tubes: None Lungs: Improved aeration of the right lower lung compared to prior exam with placement of right pigta il catheter in the lower thorax. Consolidation in the mid right lung may represent fluid in the fissu re. No pneumothorax. Cardiomediastinal contours: Unremarkable Bones: No acute osseous abnormality. IMPRESSION: Improved aeration of the right lower lung compared to prior exam with placement of right pigtail cath eter in the lower thorax. Consolidation in the mid right lung may represent fluid in the fissure.
[2025-01-10] MEDS: lactose-reduced food (Ensure High Protein) 237ml bottle PO SCH (13:20)
--- NOTE | 2025-01-10 17:55 | PROGRESS NOTE- Residence ---
Progress Note - Resident Providers to CC Resident Creating Document: ANA MARÍA SUTHERLAND RES CC: SHIRLEY ROBERTS MD ~ Antibiotic Timeout Antibiotic Ordered?: Yes Subjective Patient is seen and examined at bedside. Patient's SOB, abdominal pain and breathing are reportedly improved. No acute overnight events. Patient had about 2000 mL of pleural fluid from the chest tube on the right side. Objective Vital Signs Date Time Temp Pulse Resp B/P (MAP) Pulse Ox O2 Delivery O2 Flow Rate FiO2 01/10/25 11:26 81 16 Nasal Cannula 1.0 01/10/25 11:17 95 24 01/10/25 11:00 97.7 166/94 (118) Result Diagram: 01/10/25 0635 01/10/25 0635 General: Alert, awake, oriented, in acute distress HEENT: PERRLA, no icterus, pallor, lymphadenopathy, carotid bruit Respiratory system: Breath sounds on the right side (improved), bilateral crackles heard, chest tube placed on the rt side CVS: S1-S2 heard, grade 3/6 HSM with radiation to the tricuspid and pulmonary area. GI: Generalized tenderness of the abdomen present, distended, fluid thrill present, Soft, organomegaly could not be examined in view of tense abdomen, no guarding/rigidity, bowel sounds present Neuro: No focal neurological deficits present Extremities: Spider angioma present in the chest region, Surgical scar present in the right forearm, No edema cyanosis clubbing/deformities Skin: Warm and dry Coagulation Studies Laboratory Tests Test 01/06/25 13:10 01/10/25 08:44 D-Dimer 1.67 MG/L FEU (0-0.50) H D-Dimer Comment Prothrombin Time 12.4 SECONDS (9.0-12.0) H INR International Normalized Ratio 1.2 INR Coagulation Comments Assessment Assessment A 59-year-old female with PMH of HTN, type 2 DM, alcoholic liver cirrhosis presented to the ED in view of shortness of breaths, cough, pain abdomen and chin pain that worsened over the last three days. On Further evaluation patient was found to have cellulitis of the right mandible, elevated blood sugars, right sided pleural effusion with possible underlying pneumonia. Patient is admitted for the evaluation and management of the above. Thoracentesis with 2800 mL of fluid was removed on 01/08/25. Patient developed 10 mm pneumothorax and developed fluid again day requiring chest tube placement. Plan Plan Acute hypoxemic respiratory failure 2/2 CAP covering Gram-negative and Gram-positive organisms Rt sided exudative pleural effusion, recurrent s/p chest tube placement on 01/09/2025 Can not exclude underlying atelectasis Small pneumothorax HFrEF, not in acute exacerbation PE & endocarditis, ruled out Repeat chest x-ray revealed Improved aeration of the right lower lung compared to prior exam with placement of right pigtail catheter in the lower thorax. Consolidation in the mid right lung may represent fluid in the fissure. Repeat C-reactive protein downtrending and normal procalcitonin, downtrending WBC count Continue antibiotics as per below and completed 3 day course of azithromycin Incentive spirometry, flutter valve We will downgrade IV methylprednisolone 30 mg to once daily per ID recommendations Continue IV Lasix 20 mg, Aldactone 25 mg, carvedilol 3.125 mg b.i.d., Jardiance 10 mg once daily On status pleural effusion most likely secondary to liver cirrhosis Conservative management for pneumothorax Leukocytosis, probably reactive Probably secondary to the use of steroids Normal procalcitonin Decreased the dose of steroids Acute metabolic/toxic encephalopathy, improving 2/2 methamphetamine overdose, can not exclude hepatic encephalopathy Alcoholic liver cirrhosis with acute decompensation Possible SBP U tox positive for amphetamines and opiates bilirubin normal, AST and alkaline phosphatase-improving Ammonia normal Paracentesis could not be done as there was not enough fluid Continue lactulose 20 mg p.o. q.4h Continue antibiotics as per below, started on Lasix and spironolactone Right mandible cellulitis Pre malar and periorbital Soft tissue infection Antibiotics changed to Rocephin and clindamycin per ID. Appreciate recommendations Cultures negative for three days Pain management Type 2 DM, uncontrolled Hyperglycemia HB A1c >12 Continue Lantus 30 units b.i.d., increased to lispro 25 units t.i.d. after meals, low-dose sliding scale insulin Continue blood sugar monitoring HTN Continue home meds lisinopril 40 mg and amlodipine 5 mg once daily IV labetalol 10 mg p.r.n. for SBP greater than 180 mg, hold if SBP less than 100 mmHg Right Bacterial conjunctivitis Ciprofloxacin eyedrops q.6h COPD, not in acute exacerbation DuoNeb q.4 p.r.n. 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
[2025-01-10] MEDS: lactose-reduced food (Ensure Enlive) - 237ml bottle PO SCH (18:00)
[2025-01-11 02:00] VITALS: BP 165/75; PULSE 85; RESP 12; TEMP 97.6; O2SAT 91
[2025-01-11 06:00] VITALS: BP 125/72; PULSE 75; RESP 10; TEMP 97.9; O2SAT 93
[2025-01-11 06:30] VITALS: O2SAT 92
[2025-01-11 06:36] LABS: MEAN PLATELET VOLUME 8.2 FL (7.4-10.4); RED CELL DISTRIBUTION WIDTH 15.8 % (11.5-14.5)
[2025-01-11 06:50] LABS: CREATININE 0.65 MG/DL (0.40-0.90); TOTAL CARBON DIOXIDE 26.2 MMOL/L (24-32); eCRCL 80 ML/MIN; eGFR > 90 ML/MIN
[2025-01-11 08:00] VITALS: RESP 18; O2SAT 97
[2025-01-11] MEDS: methylPREDNISolone sod succ/PF 40mg inj. IV SCH (08:42)
[2025-01-11 10:21] VITALS: RESP 18; O2SAT 97
--- NOTE | 2025-01-11 10:28 | RADIOLOGY REPORT ---
EXAM: DI CHEST,SINGLE VIEW Indication: chest tube Technique: Single frontal view of the chest was obtained Comparison: DI CHEST,SINGLE VIEW on DOS: 01/10/25, DI CHEST,SINGLE VIEW on DOS: 01/09/25, CT CT CHEST o n DOS: 01/09/25, DI CHEST,SINGLE VIEW on DOS: 01/08/25, DI CHEST,SINGLE VIEW on DOS: 01/08/25 FINDINGS: Lines and Tubes: None Lungs: Improved aeration of the right lower lung compared to prior exam. Pleura: No effusion. Right pigtail catheter. No pneumothorax. Cardiomediastinal contours: Unremarkable Bones: No acute osseous abnormality. IMPRESSION: Improved aeration of the right lower lung compared to prior exam.
[2025-01-11 11:00] VITALS: BP 104/65; PULSE 77; RESP 10; TEMP 97.7; O2SAT 93
--- NOTE | 2025-01-11 16:25 | DISCHARGE SUMMARY-Residence ---
Discharge Summary Providers to CC Resident Creating Document: ANA MARÍA SUTHERLAND RES CC: SHIRLEY ROBERTS MD ~ Discharge Summary Admission Diagnosis: PNA, Resp failure Hospital Course DATE OF ADMISSION: 01/06/25 DATE OF DISCHARGE: 01/11/25 Discharge Diagnosis\Comment: Acute hypoxemic respiratory failure CPAP covering Gram-negative and Gram-positive organisms Right-sided exudative pleural effusion, recurrent status post chest tube placement on 01/09/2025 Can not exclude underlying atelectasis Small pneumothorax Heart failure with reduced ejection fraction, not in acute exacerbation Leukocytosis, probably reactive Acute metabolic/toxic encephalopathy Secondary to methamphetamine overdose, can not exclude underlying hepatic encephalopathy Alcoholic liver cirrhosis with acute decompensation Possible SBP Right mandible cellulitis Pre malar and periorbital soft tissue infection Type 2 DM, uncontrolled Hyperglycemia HTN Right bacterial conjunctivitis COPD, not in acute exacerbation HLD Severe protein energy malnutrition Homeless Substance use disorder Operations\Procedures: Thoracentesis Chest tube placement Consultants: Dr. Covarrubias (geologist petroleum) Dr. Heath (ID) Complications: None Condition on DC: Stable Discharge Summary: A 59-year-old female with PMH of HTN, type 2 DM, alcoholic liver cirrhosis presented to the ED in view of shortness of breaths, cough, pain abdomen and chin pain that worsened over the last three days prior to the day of admission. On further evaluation patient was found to have cellulitis of the right mandible on imaging which was treated with adequate antibiotics ID was consulted in view of antibiotics who had followed the patient through the discharge. Patient was also deciding on room air requiring oxygen support initially indicating acute hypoxemic respiratory failure. On further imaging patient was found to have community-acquired pneumonia and right-sided exudative pleural effusion which was tapped and sent for analysis. Thoracocentesis was done on 01/08/2025, patient had repeat fluid accumulation within the right chest requiring chest tube placement on 01/09/2025. During evaluation of the respiratory failure, PE was ruled out and in view of IV drug abuse endocarditis were ruled out. Patient's hypoxemic respiratory failure was purely related to respiratory causes and heart failure with reduced ejection fraction was not in acute exacerbation. About 2800 mL of pleural fluid which was transudative after analysis were taken out on the 08 of January. Patient's urine drug screen was positive for methamphetamine at the time of admission which was the cause for presentation of altered mental status indicating toxic encephalopathy. Patient had blood sugars in the range of six 100s without acidosis requiring to modify insulin at a frequent interval and had to settle down on Lantus 30 units b.i.d. with lispro 25 units t.i.d. after meals and high-dose sliding scale insulin. It was very difficult to control her blood sugars initially. Patient additionally also had right bacterial conjunctivitis requiring ciprofloxacin eyedrops that improved gradually. Patient had moderate ascites on CT abdomen with a background of cirrhosis, geologist petroleum was consulted for paracentesis. Patient's abdomen was clinically very tender initiating a suspicion for SBP. Paracentesis could not be done in view of inadequate fluid and therefore could not be sent for analysis either. Patient was empirically treated for SBP to avoid further complications and mortality. Patient's other medical conditions were managed as per home meds. Patient is physically and clinically stable for transferred to [facility]. Physical examination at discharge: General: Alert, awake, oriented, in acute distress HEENT: PERRLA, no icterus, pallor, lymphadenopathy, carotid bruit, bad dental hygiene with decayed teeth and lost teeth Respiratory system: Breath sounds on the right side (improved), bilateral crackles heard, chest tube placed on the rt side CVS: S1-S2 heard, grade 3/6 HSM with radiation to the tricuspid and pulmonary area. GI: Generalized tenderness of the abdomen present, distended, fluid thrill present, Soft, organomegaly could not be examined in view of tense abdomen, no guarding/rigidity, bowel sounds present Neuro: No focal neurological deficits present Extremities: Spider angioma present in the chest region, Surgical scar present in the right forearm, No edema cyanosis clubbing/deformities Skin: Warm and dry Labs at discharge: WBC: 13.6, H/H: 13.2/38.6, platelet count: 170 Sodium: 138, potassium: 3.8, BUN: 21, creatinine: 0.65 Imaging: Repeat chest x-ray on 01/11 post chest tube (day two):Improved aeration of the right lower lung compared to prior exam. Chest x-ray at the time of admission:Extensive right lung opacity may reflect pneumonia or aspiration. Moderate to large right pleural effusion CT chest/abdomen/pelvis: Large right pleural effusion causing near-complete col lapse of the right lung. Moderate abdominopelvic ascites, cirrhotic liver, splenomegaly. Face CT: Soft tissue stranding along the right side of the face, most prominent near the right mandibular body, likely cellulitis in the appropriate clinical setting. Discharge medications and instructions have been written on the papers that are faxed and sent to [facility]. *Problems/Diagnosis: (1) Type 2 diabetes mellitus, uncontrolled (2) Overdose of methamphetamine (3) Acute hypoxemic respiratory failure Total Time Spent on D/C: > 30 Minutes Date of Service: Jan 11, 2025 Billing Provider: SHIRLEY ROBERTS MD, SIVA, RES Jan 11, 2025 16:24
== END 2025-01-11 17:50 | DRG 812 ==
LOC: ER 07:07 → ED HOLD 12:32 → PCU 3S 16:59
PROVIDERS: ADMIT Family Medicine; ATTEND Family Medicine
PROC: BW251ZZ Computerized Tomography (CT Scan) of Chest, Abdomen and Pelvis using Low Osmolar Contrast (ICD-10-PCS; 2025-01-06)
PROC: B32T1ZZ Computerized Tomography (CT Scan) of Left Pulmonary Artery using Low Osmolar Contrast (ICD-10-PCS; 2025-01-06)
PROC: B3201ZZ Computerized Tomography (CT Scan) of Thoracic Aorta using Low Osmolar Contrast (ICD-10-PCS; 2025-01-06)
PROC: B32S1ZZ Computerized Tomography (CT Scan) of Right Pulmonary Artery using Low Osmolar Contrast (ICD-10-PCS; 2025-01-06)
PROC: 0W993ZZ Drainage of Right Pleural Cavity, Percutaneous Approach (ICD-10-PCS; 2025-01-08)
PROC: 0W9930Z Drainage of Right Pleural Cavity with Drainage Device, Percutaneous Approach (ICD-10-PCS; principal; 2025-01-09)
PROC: BW241ZZ Computerized Tomography (CT Scan) of Chest and Abdomen using Low Osmolar Contrast (ICD-10-PCS; 2025-01-09)
DX: T43.621A Poisoning by amphetamines, accidental (unintentional), initial encounter (principal); J96.01 Acute respiratory failure with hypoxia; G92.8 Other toxic encephalopathy; E43 Unspecified severe protein-calorie malnutrition; K76.82 Hepatic encephalopathy; J18.9 Pneumonia, unspecified organism; K72.90 Hepatic failure, unspecified without coma; K70.31 Alcoholic cirrhosis of liver with ascites; J91.8 Pleural effusion in other conditions classified elsewhere; E87.1 Hypo-osmolality and hyponatremia; J44.0 Chronic obstructive pulmonary disease with (acute) lower respiratory infection; L02.01 Cutaneous abscess of face; E87.6 Hypokalemia; F17.200 Nicotine dependence, unspecified, uncomplicated; J93.83 Other pneumothorax; G43.909 Migraine, unspecified, not intractable, without status migrainosus; E11.65 Type 2 diabetes mellitus with hyperglycemia; E78.5 Hyperlipidemia, unspecified; G89.29 Other chronic pain; H10.31 Unspecified acute conjunctivitis, right eye; I10 Essential (primary) hypertension; Z83.3 Family history of diabetes mellitus; Z59.00 Homelessness unspecified; Z79.4 Long term (current) use of insulin; Z79.899 Other long term (current) drug therapy; Y92.89 Other specified places as the place of occurrence of the external cause; Z68.20 Body mass index [BMI] 20.0-20.9, adult
CPT/HCPCS: 32555; 32557; 36415; 36600; 70486; 71045; 71250; 71275; 73030; 74176; 76705; 80053; 80061; 80202; 80305; 81001; 82140; 82565; 82803; 82945; 82948; 83036; 83605; 83615; 83690; 83986; 84132; 84145; 84157; 84484; 85018; 85025; 85379; 85610; 85651; 86140; 87040; 87070; 87075; 87081; 89051; 93005; 93306; 94640; 94760; 96374; 96375; 99285; A4421; A4615; A6258; C1729; C1769; G0378; J0360; J0696; J1815; J1938; J2270; J2405; J2543; J2919; J3373; J3374; J3490; J7030; J7040; J7120; Q9967

== ENCOUNTER 2025-01-26 06:10 | Inpatient (IN) | payer MEDICAID ==
[~2025-01-26] VITALS: Ht 162.6 cm; Wt 51.7 kg
[~2025-01-26 06:10] MED LIST changes: +LISI10TA27 PO
--- NOTE | 2025-01-26 06:16 | ELECTROCARDIOGRAPH REPORT ---
[facility] Test Date: 2025-01-26 Test Time: 06:15:33 Pat Name: PIPPA ARREOLA Department: EMERGENCY ROOM Room: Gender: F Tester Compressed Gases: NISREEN : 1965 Requested By: LINDA SUAREZ Order Number: [id number] Reading MD: Measurements Intervals [place] Rate: 96 P: 98 [place]: 126 QRS: 82 QRSD: 92 T: 52 QT: 353 QTc: 447 Interpretive Statements Sinus rhythm Anterior infarct, old Minimal ST elevation, lateral leads Baseline wander in lead(s) V3 Please click the below link to view image of tracing.
--- NOTE | 2025-01-26 06:30 | Physician Documentation ---
History of Present Illness ~ Chief Complaint: Chest Pain Stated Complaint: MULTIPLE MEDICAL ISSUES Time Seen by MD: 06:26 Primary Medical Doctor: Pt declined to answer HPI A 59-year-old female with PMH of HTN, type 2 DM, alcoholic liver cirrhosis, rece nt admission for pneumonia with pleural effusion, presenting with chest pain and shortness of breath She tells me that she was discharged 2 weeks ago to a rehab facility. She says that over the past week or so, she has had gradually worsening symptoms, b ecoming much more severe today. She reports having pain in the right side of her chest and feels like she can not take a deep breath. She feels like she has fluid around her lungs again. She also reports that her abdomen is tight and distended. She feels chilled. No definite fevers. No productive cough. She does have diarrhea but is taking lactulose. Medication Reconciliation Allergies: Coded Allergies: No Known Allergies (Unverified , 01/26/25) Scheduled Atorvastatin Calcium (Atorvastatin Calcium), 1 TAB PO DAILY, (Reported) Ciprofloxacin HCl (Ciprofloxacin HCl), 1 TAB PO BID Furosemide (Furosemide), 1 TAB PO DAILY, (Reported) Insulin Glargine,Hum.rec.anlog (Basaglar Kwikpen U-100), 30 UNITS SQ DAILY, (Reported) Insulin Glargine,Hum.rec.anlog (Basaglar Kwikpen U-100), 30 UNIT SQ QDD Insulin Lispro (Humalog Onur Kwikpen), 5 SQ before meals, (Reported) Lactobacillus Casei/Folic Acid (Restora Rx Capsule), 1 CAP PO DAILY Lisinopril (Lisinopril), 1 TAB PO DAILY, (Reported) Metronidazole* (Flagyl*), 1 TAB PO Q8H Spironolactone (Spironolactone), 1 TAB PO DAILY, (Reported) Past Medical History Past Medical History: Migraine, Cirrohsis, Hepatitis C, Diabetes, Arthritis, Chronic Pain, MRSA Abscess Past Surgical History: Patient History: FH: HTN (hypertension) MOTHER, , Age: 72 FH: diabetes mellitus MOTHER, , Age: 72 Thyroid disease MOTHER, , Age: 72 Alcohol Use: Occasionally Drug Use: marijuana, methamphetamine Lives with: Other Lives In: Homeless Occupation: unemployed Review of Systems Constitutional: Reports: chills; Denies: fever Respiratory: Reports: shortness of breath Cardiovascular: Reports: chest pain Gastrointestinal: Reports: abdomen distended, abdominal pain, diarrhea; Denies: vomiting Physical Exam Vital Signs: Temperature: 97.6, Heart Rate: 94, Respiratory Rate: 20, BP: 139/85, Pulse Oximetry: 94, Weight: 51.700 Oxygen Flow Rate: 0 Physical Exam General: This is a uncomfortable appearing chronically ill appearing middle- aged woman, moaning in pain in tearful HEENT: Atraumatic, oropharynx is dry with cracked lips Heart: Mild tachycardic, appears regular Lungs: Diminished breath sounds in the right compared to the left, otherwise clear, no respiratory distress, normal oxygen saturation on room air Abdomen: Distended tight abdomen, with general discomfort on palpation but no rebound or guarding Neuro: Alert and oriented, does not appear confused Psychiatric: Appears uncomfortable, but is cooperative with exam Procedures Additional Procedures Additional Procedure Note Procedure note: Thoracentesis Indication: Large pleural effusion Consent: Written consent was obtained from the patient after discussing risks and benefits Procedure: The locations identified using bedside ultrasound on the right posterior chest wall. The skin was cleaned with chlorhexidine. A thoracentesis catheter was placed and 2.5 L of clear straw-colored fluid was removed. After about 2.5 L was removed, the patient became very uncomfortable and so no further fluid was removed and the procedure was stopped. She quickly recovered. Postprocedure chest x-ray does not show a pneumothorax or other complication, does show increased aeration of the lung. Otherwise the patient tolerated this well. Progress Results/Orders Results/Orders Orders - LINDA SUAREZ MD Monitor (01/26/25 06:14) Saline Lock (01/26/25 06:14) Oxygen (01/26/25 06:14) Ct Chest (01/26/25 07:21) Ed Us Guidance Thoracentesis (01/26/25 07:34) Page Hospitalist (01/26/25 08:06) Completed Orders - LINDA SUAREZ MD Cbc/Diff (01/26/25 06:14) PBNP (01/26/25 06:14) Electrocardiogram (01/26/25 06:14) Hs Troponin I W Calculations (01/26/25 06:14) Hs Troponin I W Calculations (01/26/25 08:14) Hs Troponin I W Calculations (01/26/25 09:14) CMP (01/26/25 06:37) Lipase (01/26/25 06:37) Ct Chest (01/26/25 07:21) Pt Inr (01/26/25 06:38) Ondansetron Inj. (Zofran 4mg/2ml Vial) (01/26/25 06:40) Morphine 4mg/Ml Inj. (Morphine Inj.) (01/26/25 06:40) Vital Signs 01/26/25 01/26/25 01/26/25 06:15 06:35 06:52 Temp 97.6 Pulse 94 92 Resp 20 20 19 B/P (MAP) 139/85 129/93 (105) Pulse Ox 94 96 O2 Flow Rate 0 Laboratory Tests Test 01/26/25 08:10 White Blood Count 7.9 Red Blood Count 3.93 L Hemoglobin 12.2 Hematocrit 36.4 Mean Corpuscular Volume 92.7 Mean Corpuscular Hemoglobin 31.0 Mean Corpuscular Hemoglobin Concent 33.4 Red Cell Distribution Width 16.9 H Platelet Count 83 L Mean Platelet Volume 8.5 Neutrophils (%) (Auto) 63.8 Lymphocytes (%) (Auto) 21.9 Monocytes (%) (Auto) 9.1 Eosinophils (%) (Auto) 4.3 Basophils (%) (Auto) 0.9 Neutrophils # (Auto) 5.0 Lymphocytes # (Auto) 1.7 Monocytes # (Auto) 0.7 Eosinophils # (Auto) 0.3 Basophils # (Auto) 0.1 CBC Comment Prothrombin Time 11.1 INR International Normalized Ratio 1.1 Coagulation Comments Sodium Level 137 Potassium Level 4.0 Chloride Level 109 H Carbon Dioxide Level 21.9 L Anion Gap 6 L Blood Urea Nitrogen 20 H Creatinine 0.41 Estimated GFR/1.73 m2 > 90 BUN/Creatinine Ratio 48.8 H Glucose Level 140 H Calcium Level 8.1 L Total Bilirubin 0.6 Aspartate Amino Transf (AST/SGOT) 132 H Alanine Aminotransferase (ALT/SGPT) 132 H Alkaline Phosphatase 135 H Troponin I High Sensitivity 8 Pro-B-Type Natriuretic Peptide 47 Total Protein 6.3 L Albumin 2.0 L Globulin 4.3 Albumin/Globulin Ratio 0.5 L Lipase 52 Chemistry Comments EKG/XRAY/CT/US/VASC/MRI EKG : Additional Comment I personally interpreted the EKG and this shows: Sinus rhythm, rate 96, QTC 447, poor baseline due to movement, no clear ischemic changes CT : Impression I personally interpreted the CT scan, and this shows a large right-sided pleural effusion with near collapse of the right lung, no pneumothorax Consults/PCP Consults/PCP : Additional Comment Consult: I spoke to the internal medicine service, for admission in the hospital Medical Decision Making Additional info obtained from: old records Findings 01/11 Discharge Summary: "A 59-year-old female with PMH of HTN, type 2 DM, alcoholic liver cirrhosis presented to the ED in view of shortness of breaths, cough, pain abdomen and chin pain that worsened over the last three days prior to the day of admission. On further evaluation patient was found to have cellulitis of the right mandible on imaging which was treated with adequate antibiotics ID was consulted in view of antibiotics who had followed the patient through the discharge. Patient was also deciding on room air requiring oxygen support initially indicating acute hypoxemic respiratory failure. On further imaging patient was found to have c ommunity-acquired pneumonia and right-sided exudative pleural effusion which was tapped and sent for analysis. Thoracocentesis was done on 01/08/2025, patient had repeat fluid accumulation within the right chest requiring chest tube placement on 01/09/2025. During evaluation of the respiratory failure, PE was ruled out and in view of IV drug abuse endocarditis were ruled out. Patient's hypoxemic respiratory failure was purely related to respiratory causes and heart failure with reduced ejection fraction was not in acute exacerbation. About 2800 mL of pleural fluid which was transudative after analysis were taken out on the 08 of January. Patient's urine drug screen was positive for methamphetamine at the time of admission which was the cause for presentation of altered mental status indicating toxic encephalopathy. Patient had blood sugars in the range of six 100s without acidosis requiring to modify insulin at a frequent interval and had to settle down on Lantus 30 units b.i.d. with lispro 25 units t.i.d. after meals and high-dose sliding scale insulin. It was very difficult to control her blood sugars initially. Patient additionally also had right bacterial conjunctivitis requiring ciprofloxacin eyedrops that improved gradually. Patient had moderate ascites on CT abdomen with a background of cirrhosis, renal technician was consulted for paracentesis. Patient's abdomen was clinically very tender initiating a suspicion for SBP. Paracentesis could not be done in view of inadequate fluid and therefore could not be sent for analysis either. Patient was empirically treated for SBP to avoid further complications and mortality. Patient's other medical conditions were managed as per home meds. Patient is physically and clinically stable for transferred to [facility]." Additional Information Differential includes pneumonia, pleural effusion, pneumothorax, chest wall pain, pleurisy, ascites, SBP, dehydration, electrolyte derangement, worsening liver failure, ACS Assessment 59-year-old female with multiple medical issues including cirrhosis, presenting with a distended abdomen and chest pain or shortness of breath. Per chart review she recently had a chest tube and she reports having a paracentesis as well. On exam she does have a distended abdomen although does not have peritoneal findings and is afebrile. Her workup shows a large pleural effusion with near collapse of the right lung. A thoracentesis was performed with improvement. Her workup otherwise does not show any dangerous acute issues today. She will be admitted to the medicine service for further workup and treatment. Departure Impression: Primary Impression: Pleural effusion, right Additional Impression: Chest pain Referrals: NO PRIMARY CARE PROVIDER (PCP) Signature Scribe Signature: na Attestation: LINDA Finn MD Jan 26, 2025 06:30
[2025-01-26] MEDS: morphine 4 MG/ML inj SYRINge IV ONE (06:52)
[2025-01-26] MEDS: ondansetron/PF 4mg/2ml inj IV ONE (06:53)
--- NOTE | 2025-01-26 07:47 | RADIOLOGY REPORT ---
CLINICAL INFORMATION: Shortness of breath, chest pain. History of pneumonia and pleural effusion. TECHNIQUE: Axial CT imaging of the chest was performed without IV contrast. Sagittal and coronal reformatted images were made, stored and reviewed. Evaluation is limited without IV contrast. One or more of the following dose reduction techniques were used: Automated exposure control. Adjustment of mA and/or kV according to patient size. CTDIvol = 6.31 mGy DLP = 234.44 mGy-cm COMPARISON: DI CHEST,SINGLE VIEW on DOS: 01/11/25, DI CHEST,SINGLE VIEW on DOS: 01/10/25, DI CHEST,SINGLE VIEW on DOS: 01/09/25 FINDINGS: Aorta: No aneurysm or significant calcification. Cardiac: Heart size is within normal limits. [id number] coronary artery calcification. Mediastinum/kishor: No mass or adenopathy. Lungs: Large pleural effusion with complete collapse of the right lung, with progressive increase in size in the right pleural effusion and collapse of the right lung compared to the prior CT exam. Left lung is clear. No pneumothorax. Pulmonary arteries: No gross abnormality. Chest wall: No mass or other abnormality. Upper abdomen: Cirrhotic liver morphology with nodular contour and relative enlargement of the left hepatic lobe. Partially visualized ascites in the upper abdomen. Bones: No fracture or suspicious intraosseous lesions. IMPRESSION: 1. Large right pleural effusion with complete collapse of the right lung, with progression compared to the prior exam. 2. Left lung is clear. 3. Cirrhotic liver morphology and partially visualized ascites in the upper abdomen.
[2025-01-26] MEDS ORDERED: bisacodyl 10mg suppository rectal RC PRN (08:40)
[2025-01-26] MEDS ORDERED: ondansetron/PF 4mg/2ml inj IV PRN (08:40)
[2025-01-26] MEDS ORDERED: magnesium sulf-water 4G/100mL 100 ML IV PRN (08:40)
[2025-01-26] MEDS ORDERED: magnesium sulf-water 2g/50mL 50 ML IV PRN (08:40)
[2025-01-26] MEDS ORDERED: potassium Cl 20 mEq SR tablet PO PRN ×2 (08:40)
[2025-01-26] MEDS ORDERED: potassium Cl 40MEQ/1/2NS 520ml 520 ML IV PRN (08:40)
[2025-01-26] MEDS ORDERED: magnesium Cl slow-release 64mg tablet PO PRN (08:40)
[2025-01-26] MEDS ORDERED: magnesium hydroxide 30ml (MOM) UD suspension PO PRN (08:40)
[2025-01-26] MEDS ORDERED: albuterol 2.5 MG/3 ML nebule NEB PRN (08:50)
[2025-01-26 08:57] LABS: MEAN PLATELET VOLUME 8.5 FL (7.4-10.4); RED CELL DISTRIBUTION WIDTH 16.9 % (11.5-14.5)
[2025-01-26 09:02] LABS: INR 1.1 INR
[2025-01-26 09:14] LABS: CREATININE 0.41 MG/DL (0.40-0.90); TOTAL CARBON DIOXIDE 21.9 MMOL/L (24-32); eCRCL 124 ML/MIN; eGFR > 90 ML/MIN
[2025-01-26 09:19] LABS: PRO BRAIN NATRIURETIC PEPTIDE 47 PG/ML (0-125)
--- NOTE | 2025-01-26 11:43 | RADIOLOGY REPORT ---
AP portable chest CLINICAL INDICATION: cxr Comparison: 01/11/2025 FINDINGS: Heart size is normal. There is a right subpulmonic pleural effusion with consolidation of underlying lung. Left lung clear IMPRESSION: 1. Right subpulmonic pleural effusion with consolidation of underlying lung
[2025-01-26 11:50] VITALS: PULSE 78; RESP 19; O2SAT 97
--- NOTE | 2025-01-26 16:59 | HISTORY AND PHYSICAL ---
History & Physical Providers to CC ~ History of Present Illness Reason for Admit\Complaint: pain in the right side of her chest , SOB History of Present Illness Patient is 59-year-old who was recently discharged from the hospital on January 11, 2025 with a diagnosis of acute hypoxemic respiratory failure, community- acquired pneumonia, right-sided exam dated pleural effusion, history of chest tube placement on January 09, 2025, heart failure with reduced ejection fraction not in exacerbation, meth use, alcoholic liver cirrhosis, type 2 diabetes, hypertension, COPD, hyperlipidemia, homeless, substance abuse. In her last visit patient had thoracocentesis and chest tube placed . Patient was physically in clinically stable and transferred to [facility] rehab. Patient was discharged from [facility] two weeks ago , now she is in ER with her concern regarding pain in the right side of her chest and feels like she can not take a deep breath. She feels like she has fluid around her lungs again. She also reports that her abdomen is tight and distended. She feels chilled. Patient also told me that she had one puff of speed on January 24, 2025. He denied use of any alcohol she is current smoker.Patient does not recall what medications she is taking but goes to [facility] for her medical needs. Further workup done in ER , CT chest showed Large right pleural effusion with complete collapse of the right lung, with progression compared to the prior exam.Left lung is clear.Cirrhotic liver morphology and partially visualized ascites in the upper abdomen. Liver enzymes elevated. Hospitalist services contacted for admission and further management. Patient denied any nausea vomiting or abdominal pain to me Allergies: Coded Allergies: No Known Allergies (Unverified , 01/26/25) Home Medications Home Medications Active Restora Rx Capsule (Lactobacillus Casei/Folic Acid) 60 Mg (200 Billion Cell)- 1.25 Mg Capsule 1 Cap PO DAILY 30 Days Ciprofloxacin HCl (Ciprofloxacin) 500 Mg Tab 1 Tab PO BID Flagyl* (Metronidazole) 500 Mg Tablet 1 Tab PO Q8H Basaglar Kwikpen U-100 (Insulin Glargine,Hum.rec.anlog) 100 Unit/Ml (3 Ml) Insuln.pen 30 Unit SQ QDD 30 Days Reported Lisinopril 10 Mg Tablet 1 Tab PO DAILY Humalog Onur Kwikpen (Insulin Lispro) 100 Unit/Ml Ins.pen.hf 5 SQ BEFORE MEALS Atorvastatin Calcium 20 Mg Tablet 1 Tab PO DAILY Spironolactone 25 Mg Tablet 1 Tab PO DAILY Basaglar Kwikpen U-100 (Insulin Glargine,Hum.rec.anlog) 100 Unit/Ml (3 Ml) Insuln.pen 30 Units SQ DAILY Furosemide 20 Mg Tablet 1 Tab PO DAILY Past Medical History Past Medical History Hypertension Type 2 diabetes mellitus COPD Cirrhosis Hepatitis Past Surgical History Surgical History Comment Cholecystectomy Family History Family History: FH: HTN (hypertension) MOTHER, , Age: 72 FH: diabetes mellitus MOTHER, , Age: 72 Thyroid disease MOTHER, , Age: 72 Past Social History Social History Comment Started smoking from the age of 10 years, smokes half pack per day. Does not drink alcohol. h/o Smoking meth. On January she took one puff of speed homeless going to rent the apartment. Lives with her dog Follows in [facility] for medical needs ROS ROS Review of system as mentioned above in HPI rest of the review of system unremarkable Exam Vitals: Vital Signs Date Time Temp Pulse Resp B/P (MAP) Pulse Ox O2 Delivery O2 Flow Rate FiO2 01/26/25 15:38 94 14 121/72 (88) 99 01/26/25 11:50 Nasal Cannula* 2 28 01/26/25 06:15 97.6 General: General-patient not in any acute distress, alert awake chronically ill- appearing, looks older than stated age HEENT-atraumatic normocephalic, neck supple without elevated JVD, no thyromegaly or carotid bruit. No lymphadenopathy bilaterally. Eyes-no icterus or pallor seen in eyes Chest-clear to auscultation over left lung decreased lung sounds over right lung, breathing nonlabored no tachypnea, no wheezing, no crepitation, no crackles. Heart-S1-S2 normal, regular heart rate no murmur Abdomen bowel sounds positive on auscultation, soft appear distended nontender no guarding, no rigidity Skin no active skin rash Neurology-grossly intact, nonfocal alert awake oriented Extremity- no pedal edema able to move all 4 extremities Psychiatry - patient is not confused or agitated cooperated during physical examination Diagnostic Data Last Recorded Lab Results: 01/26/25 0810 01/26/25 0810 Diagnostic Data: Laboratory Tests Test 01/26/25 08:10 Prothrombin Time 11.1 SECONDS (9.0-12.0) INR International Normalized Ratio 1.1 INR Coagulation Comments Counseling Services Smoking & Tobacco Cessation: 3-10 Minutes Advance Care Planning Advanced Care plannin - 30 Minutes Additional Plan Patient is 59-year-old who was recently discharged from the hospital on January 11, 2025 with a diagnosis of acute hypoxemic respiratory failure, community- acquired pneumonia, right-sided exam dated pleural effusion, history of chest tube placement on January 09, 2025, heart failure with reduced ejection fraction not in exacerbation, meth use, alcoholic liver cirrhosis, type 2 diabetes, hypertension, COPD, hyperlipidemia, homeless, substance abuse. In her last visit patient had thoracocentesis and chest tube placed . Patient was physically in clinically stable and transferred to [facility]. Patient was discharged from [facility] rehab two weeks ago , now she is in ER with her concern regarding pain in the right side of her chest and feels like she can not take a deep breath. Further workup done in ER , CT chest showed Large right pleural effusion with complete collapse of the right lung, with progression compared to the prior exam.Left lung is clear.Cirrhotic liver morphology and partially visualized ascites in the upper abdomen. Liver enzymes elevated. Patient is admitted for large right pleural effusion with complete collapse, liver cirrhosis. Patient is started on furosemide. ER physician Dr. Avila we will do the thoracocentesis for right-sided pleural effusion. Dr. Fink evaluated the patient in ER. Patient is strongly advised to stop smoking and drugs and risks explained. We will continue to monitor patient's labs and vitals closely . Needs physical therapy evaluation before discharge . Code status discussed with the patient patient wishes full code, Time spent in discussing code status 16 minutes. We will do home medication reconciliation once updated in electronic by nursing staff or pharmacist. Further management depending on response to treatment. I will continue to follow patient in a.m. Date of Service: Jan 26, 2025 Billing Provider: LOIDA BREWSTER MD Common Visit Codes: [id number] INP/OBS CARE (HIGH) Secondary Visit Codes: [id number] CARE PLAN 30 MINUTES LOIDA BREWSTER MD Jan 26, 2025 16:59
[2025-01-26 17:34] LABS: URINE AMPHETAMINE SCREEN POSITIVE (Neg); URINE BARBITUATE SCREEN NEGATIVE (Neg); URINE BENZODIAZEPINES SCREEN NEGATIVE (Neg); URINE CANNABINOID SCREEN NEGATIVE (Neg); URINE COCAINE SCREEN NEGATIVE (Neg); URINE METHADONE SCREEN NEGATIVE (Neg); URINE OPIATE SCREEN POSITIVE (Neg); URINE PHENCYCLIDINE SCREEN NEGATIVE (Neg)
[2025-01-26 18:00] VITALS: BP 131/44; PULSE 98; RESP 20; TEMP 98; O2SAT 92
[2025-01-26] MEDS: nicotine 14mg patch - 24hr TD SCH (18:58)
[2025-01-26] MEDS: heparin, porcine 5000 units/ml vial SQ SCH (20:00)
[2025-01-26] MEDS ORDERED: DEXTROSE 15 GM of carb/4 tabs (each vial/BOTTLE has 4 tablets) PO PRN ×2 (21:50)
[2025-01-26] MEDS ORDERED: dextrose 50%-water 50ml dispensing syringe IV PRN ×2 (21:50)
[2025-01-26] MEDS ORDERED: glucagon, human recombinant 1mg kit SUBCUT PRN (21:50)
[2025-01-26 22:00] VITALS: BP 123/82; PULSE 95; RESP 20; RESP 22; TEMP 97.8; O2SAT 93
[2025-01-26] MEDS: insulin glargine (Lantus) pen - multi-dose SQ ONE ×2 (22:29→23:06)
[2025-01-26] MEDS: INSULIN LISPRO 100 UNIT/ML INSULN.PEN MULTI-DOSE SQ ONE ×2 (22:29→23:01)
[2025-01-26 23:20] VITALS: PULSE 84; RESP 17; O2SAT 93
[2025-01-27] VITALS (8 sets, daily range): BP systolic 110–127; BP diastolic 70–88; PULSE 84–106; RESP 15–22; TEMP 97.8–99; O2SAT 93–97
[2025-01-27] MEDS: INSULIN LISPRO 100 UNIT/ML INSULN.PEN MULTI-DOSE SQ SCH ×2 (07:00→09:00)
[2025-01-27 07:03] LABS: MEAN PLATELET VOLUME 8.9 FL (7.4-10.4); RED CELL DISTRIBUTION WIDTH 16.6 % (11.5-14.5)
[2025-01-27 07:18] LABS: CREATININE 0.67 MG/DL (0.40-0.90); TOTAL CARBON DIOXIDE 23.7 MMOL/L (24-32); eCRCL 76 ML/MIN; eGFR > 90 ML/MIN
[2025-01-27] MEDS: insulin glargine (Lantus) pen - multi-dose SQ SCH (08:18)
--- NOTE | 2025-01-27 11:16 | RADIOLOGY REPORT ---
AP portable chest CLINICAL INDICATION: prior pleural effusion Comparison: 01/26/2025 FINDINGS: Heart size is slightly enlarged. Right pleural effusion is present. There is consolidation of the right lower lobe and portion of the right middle lobe. There is infiltrate in the right upper lobe IMPRESSION: 1. Continuing evidence of pleural disease of the right lung base. There is now congestive change or infiltrate seen in the right upper lung zone
--- NOTE | 2025-01-27 18:54 | PROGRESS NOTE ---
Daily Progress Note Providers to CC ~ Antibiotic Timeout Antibiotic Ordered?: Yes Subjective Patient is seen in presence of nursing staff Anthony today. Patient is feeling much better on room air saturating well. She had thoracocentesis done in ER yesterday. No other new concerns Objective Vital Signs Date Time Temp Pulse Resp B/P (MAP) Pulse Ox O2 Delivery O2 Flow Rate FiO2 01/27/25 11:21 88 18 96 Room Air* 0 21 01/27/25 11:00 99.0 114/77 (89) Result Diagram: 01/27/25 0554 01/27/25 0554 General-patient not in any acute distress, alert awake chronically ill- appearing, looks older than stated age HEENT-atraumatic normocephalic, neck supple without elevated JVD, no thyromegaly or carotid bruit. No lymphadenopathy bilaterally. Eyes-no icterus or pallor seen in eyes Chest-clear to auscultation over left lung decreased lung sounds over right lung improved as compared to yesterday, breathing nonlabored no tachypnea, no wheezing, no crepitation, no crackles. Heart-S1-S2 normal, regular heart rate no murmur Abdomen bowel sounds positive on auscultation, soft appear distended nontender no guarding, no rigidity Skin no active skin rash Neurology-grossly intact, nonfocal alert awake oriented Extremity- no pedal edema able to move all 4 extremities Psychiatry - patient is not confused or agitated cooperated during physical examination Coagulation Studies Laboratory Tests Test 01/26/25 08:10 Prothrombin Time 11.1 SECONDS (9.0-12.0) INR International Normalized Ratio 1.1 INR Coagulation Comments Problem\Assessment\Plan Patient is 59-year-old who was recently discharged from the hospital on January 11, 2025 with a diagnosis of acute hypoxemic respiratory failure, community- acquired pneumonia, right-sided exam dated pleural effusion, history of chest tube placement on January 09, 2025, heart failure with reduced ejection fraction not in exacerbation, meth use, alcoholic liver cirrhosis, type 2 diabetes, hypertension, COPD, hyperlipidemia, homeless, substance abuse. In her last visit patient had thoracocentesis and chest tube placed . Patient was physically in clinically stable and transferred to [facility] rehab. [facility] , now she is in ER with her concern regarding pain in the right side of her chest and feels like she can not take a deep breath. Further workup done in ER , CT chest showed Large right pleural effusion with complete collapse of the right lung, with progression compared to the prior exam.Left lung is clear.Cirrhotic liver morphology and partially visualized ascites in the upper abdomen. Liver enzymes elevated. Patient is admitted for large right pleural effusion with complete collapse, liver cirrhosis. Patient is started on furosemide. ER physician Dr. Avila did the thoracocentesis for right-sided pleural effusion. Dr. Fink evaluated the patient in ER. Patient is strongly advised to stop smoking and drugs and risks explained. Started ceftriaxone ordered sed rate and procalcitonin levels. Code status discussed with the patient patient wishes full code We will continue to monitor patient's labs and vitals closely . Needs physical therapy evaluation before discharge . We will do home medication reconciliation once updated in electronic by nursing staff or pharmacist, home medication reconciliation pending. Further management depending on response to treatment. I will continue to follow patient in a.m. Date of Service: Jan 27, 2025 Billing Provider: LOIDA BREWSTER MD Common Visit Codes: [id number] INP/OBS CARE(HIGH) LOIDA BREWSTER MD Jan 27, 2025 18:54
[2025-01-27] MEDS: levoFLOXACIN-Levaquin 500mg/D5 100 ML IV SCH (20:28)
[2025-01-27] MEDS: HYDROcodone/acetaminophen 10/325mg tab PO PRN (21:40)
[2025-01-28 02:00] VITALS: BP 118/67; PULSE 92; RESP 13; TEMP 98.1; O2SAT 94
[2025-01-28 06:00] VITALS: BP 124/84; PULSE 96; RESP 17; TEMP 97.4; O2SAT 100
[2025-01-28 06:45] LABS: MEAN PLATELET VOLUME 8.3 FL (7.4-10.4); RED CELL DISTRIBUTION WIDTH 16.3 % (11.5-14.5)
[2025-01-28 07:06] LABS: CREATININE 0.39 MG/DL (0.40-0.90); TOTAL CARBON DIOXIDE 23.0 MMOL/L (24-32); eCRCL 130 ML/MIN; eGFR > 90 ML/MIN
[2025-01-28 08:00] VITALS: PULSE 91; RESP 16; RESP 18; O2SAT 93; O2SAT 97
--- NOTE | 2025-01-28 09:57 | RADIOLOGY REPORT ---
CHEST RADIOGRAPH Indication: monitor changes Technique: Single frontal view of the chest was obtained COMPARISON: DI CHEST,SINGLE VIEW on DOS: 01/27/25, DI CHEST,SINGLE VIEW on DOS: 01/26/25, CT CT CHEST on DOS: 01/26/25, DI CHEST,SINGLE VIEW on DOS: 01/11/25, DI CHEST,SINGLE VIEW on DOS: 01/10/25 FINDINGS: Lines and Tubes: None Lungs: Multifocal right lung airspace disease Pleura: Moderate right pleural effusion. Small right apical pneumothorax. Cardiomediastinal contours: Cardiomegaly. Bones: Unremarkable IMPRESSION: Multifocal right lung airspace disease. Moderate right pleural effusion. Small right apical pneumothorax.
[2025-01-28] MEDS ORDERED: LEVO-65 PO (13:55)
[2025-01-28] MEDS ORDERED: NICO-631 TD (13:55)
[2025-01-28] MEDS ORDERED: FURO20TA4 PO (17:22)
--- NOTE | 2025-01-28 17:27 | DISCHARGE SUMMARY ---
Discharge Summary Providers to CC ~ Discharge Summary Admission Diagnosis: Large right pleural effusion ,collapse of the right lung, liver cirrhosis Hospital Course DATE OF ADMISSION: January 26, 2025 DATE OF DISCHARGE: January 28, 2025 CBC testing done on January 28, 2025 WBC 6.4 hemoglobin 11.8 hematocrit 34.8 sed rate 28, calcitonin 0.48, lactic acid 0 .4 blood culture showed no growth after two days. Serum chemistry done on January 28 showed sodium 138 potassium 3.5 creatinine 0.39 GFR 90 elevated liver enzymes total bilirubin 0.5 AST 106 ALT 108 alkaline phosphatase 121, lipase 52 CHEST,SINGLE VIEWIMPRESSION: Multifocal right lung airspace disease. Moderate right pleural effusion. Small right apical pneumothorax. Discharge Diagnosis\\Comment: large right pleural effusion with complete collapse, liver cirrhosis. diagnosis of acute hypoxemic respiratory failure, community-acquired pneumonia, right- sided exam dated pleural effusion, history of chest tube placement on January 09, 2025, heart failure with reduced ejection fraction not in exacerbation, meth use, alcoholic liver cirrhosis, type 2 diabetes, hypertension, COPD, hyperlipidemia, homeless, substance abuse. Operations\\Procedures: Thoracocentesis done for right-sided pleural effusion in ER by Dr. Avila Consultants: None Complications: None Condition on DC: Stable New Medications: Furosemide (Furosemide) 20 Mg Tablet 1 TAB PO BID for 10 Days, #20 TAB 0 Refills Levofloxacin (Levofloxacin) 500 Mg Tablet 500 MG PO DAILY for 7 Days, #7 TAB Nicotine 14 MG Patch* (Habitrol 14 MG Patch*) 1 Each Patch.td24 1 PATCH TD DAILY for 30 Days, #30 PATCH Continued Medications: Atorvastatin Calcium (Atorvastatin Calcium) 20 Mg Tablet 1 TAB PO DAILY Insulin Glargine,Hum.rec.anlog (Basaglar Kwikpen U-100) 100 Unit/Ml (3 Ml) Insuln.pen 30 UNITS SQ DAILY Insulin Glargine,Hum.rec.anlog (Basaglar Kwikpen U-100) 100 Unit/Ml (3 Ml) Insuln.pen 30 UNIT SQ QDD for 30 Days, #10 APPLIC Insulin Lispro (Humalog Onur Kwikpen) 100 Unit/Ml Ins.pen.hf 5 SQ before meals Lactobacillus Casei/Folic Acid (Restora Rx Capsule) 60 Mg (200 Billion Cell)- 1.25 Mg Capsule 1 CAP PO DAILY for 30 Days, #30 CAP 0 Refills Lisinopril (Lisinopril) 10 Mg Tablet 1 TAB PO DAILY Spironolactone (Spironolactone) 25 Mg Tablet 1 TAB PO DAILY Discontinued Medications: Ciprofloxacin HCl (Ciprofloxacin HCl) 500 Mg Tab 1 TAB PO BID, #16 TAB Metronidazole* (Flagyl*) 500 Mg Tablet 1 TAB PO Q8H, #24 TAB Discharge Summary: As per my admitting history and physical note " Patient is 59-year-old who was recently discharged from the hospital on January 11, 2025 with a diagnosis of acute hypoxemic respiratory failure, community-acquired pneumonia, right-sided exam dated pleural effusion, history of chest tube placement on January 09, 2025, heart failure with reduced ejection fraction not in exacerbation, meth use, alcoholic liver cirrhosis, type 2 diabetes, hypertension, COPD, hyperlipidemia, homeless, substance abuse. In her last visit patient had thoracocentesis and chest tube placed . Patient was physically in clinically stable and transferred to [facility] rehab. Patient was discharged from [facility] rehab two weeks ago , now she is in ER with her concern regarding pain in the right side of her chest and feels like she can not take a deep breath. She feels like she has fluid around her lungs again. She also reports that her abdomen is tight and distended. She feels chilled. Patient also told me that she had one puff of speed on January 24, 2025. He denied use of any alcohol she is current smoker.Patient does not recall what medications she is taking but goes to [facility] for her medical needs. Further workup done in ER , CT chest showed Large right pleural effusion with complete collapse of the right lung, with progression compared to the prior exam.Left lung is clear.Cirrhotic liver morphology and partially visualized ascites in the upper abdomen. Liver enzymes elevated. Hospitalist services contacted for admission and further management. Patient denied any nausea vomiting or abdominal pain to me" During hospitalization Patient is admitted for large right pleural effusion with complete collapse, liver cirrhosis. Patient is started on furosemide. ER physician Dr. Avila did the thoracocentesis for right-sided pleural effusion. Dr. Fink evaluated the patient in ER. Patient is strongly advised to stop smoking and drugs and risks explained. Started ceftriaxone ordered sed rate and procalcitonin levels. We continued to monitor patient's labs and vitals closely . Patient was satur ating very well on room air. She was ambulating without using any assistive device and also took the shower today by herself. As per patient she has dog so do not want to go to [place]. Patient is feeling better she has been afebrile and getting discharged home in stable condition. Patient is seen and examined on the day of discharge. All labs, diagnostic workup and discharge plan discussed with patient in detail before her discharge. All questions and queries answered to the best of my professional medical knowledge. I heard patient's concerns and address appropriately. Patient was cleared by Physical therapy team for home discharge . ict managers María involved in patient's discharge plan. Discharge instructions provided to the patient. Please follow-up with primary care physician [facility] or urgent care in outpatient setting in one week. Continue to monitor renal function in 5-7 days. Strongly advised to stop recreational drugs and stopped smoking risks explained. Activity as tolerated. *Problems/Diagnosis: (1) Pleural effusion, right Status: Acute Total Time Spent on D/C: > 30 Minutes Date of Service: Jan 28, 2025 Billing Provider: LOIDA BREWSTER MD Common Visit Codes: 77309-UAS/OBS DISCH DAY >30min LOIDA BREWSTER MD Jan 28, 2025 17:18
== END 2025-01-28 16:15 | disposition home or self-care (01) | DRG 133 ==
LOC: ER 06:11 → ED HOLD 08:47 → PCU 3S 17:45
PROVIDERS: ADMIT Internal Medicine; ATTEND Internal Medicine
PROC: 0W993ZZ Drainage of Right Pleural Cavity, Percutaneous Approach (ICD-10-PCS; principal; 2025-01-26)
DX: J96.01 Acute respiratory failure with hypoxia (principal); J18.9 Pneumonia, unspecified organism; K70.31 Alcoholic cirrhosis of liver with ascites; I11.0 Hypertensive heart disease with heart failure; I50.22 Chronic systolic (congestive) heart failure; J90 Pleural effusion, not elsewhere classified; Z59.00 Homelessness unspecified; J44.0 Chronic obstructive pulmonary disease with (acute) lower respiratory infection; J98.19 Other pulmonary collapse; F17.200 Nicotine dependence, unspecified, uncomplicated; G43.909 Migraine, unspecified, not intractable, without status migrainosus; F15.90 Other stimulant use, unspecified, uncomplicated; E11.9 Type 2 diabetes mellitus without complications; Z83.3 Family history of diabetes mellitus; Z82.49 Family history of ischemic heart disease and other diseases of the circulatory system
CPT/HCPCS: 32554; 36415; 71045; 71250; 80053; 80305; 82948; 83605; 83690; 83880; 84145; 84484; 85025; 85610; 85651; 87040; 87081; 93005; 94760; 99285; A6258; G0378; J1815; J1938; J1956; J2270; J2405; J7040

== ENCOUNTER 2025-02-03 01:25 | Emergency (ER) | payer MEDICAID ==
[~2025-02-03] VITALS: Ht 162.6 cm; Wt 56.1 kg
[~2025-02-03 01:25] MED LIST changes: -CIPR-458 PO; +LEVO-65 PO; -METR-159 PO; +NICO-631 TD
[2025-02-03 01:29] VITALS: TEMP 98.9
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
[2025-02-03 03:00] VITALS: BP_DIAS 90; RESP 12; O2SAT 96
[2025-02-03 03:18] LABS: MEAN PLATELET VOLUME 8.2 FL (7.4-10.4); RED CELL DISTRIBUTION WIDTH 16.0 % (11.5-14.5)
[2025-02-03 03:28] LABS: CREATININE 0.66 MG/DL (0.40-0.90); TOTAL CARBON DIOXIDE 24.3 MMOL/L (24-32); eCRCL 81 ML/MIN; eGFR > 90 ML/MIN
[2025-02-03] MEDS ORDERED: INSU100I31 SQ (03:52)
[2025-02-03] MEDS ORDERED: INSU100I34 SQ (03:52)
[2025-02-03] MEDS ORDERED: FURO40TA4 PO (03:53)
[2025-02-03] MEDS ORDERED: SPIR50TA5 PO (03:53)
[2025-02-03] MEDS ORDERED: ALBU18HF2 INH (03:58)
[2025-02-03 04:25] VITALS: BP_SYST 96; PULSE 88
[2025-02-03] MEDS: insulin regular, human 10 units/0.1 ml syringe SQ ONE (04:37)
== END 2025-02-03 05:18 | disposition home or self-care (01) ==
LOC: ER 01:26
DX: R18.8 Other ascites (principal); E11.65 Type 2 diabetes mellitus with hyperglycemia; M19.90 Unspecified osteoarthritis, unspecified site; G89.29 Other chronic pain; F12.90 Cannabis use, unspecified, uncomplicated; G43.909 Migraine, unspecified, not intractable, without status migrainosus; F17.210 Nicotine dependence, cigarettes, uncomplicated; Z86.19 Personal history of other infectious and parasitic diseases; Z86.14 Personal history of Methicillin resistant Staphylococcus aureus infection; Z59.00 Homelessness unspecified; Z79.4 Long term (current) use of insulin; Z79.899 Other long term (current) drug therapy; Z76.0 Encounter for issue of repeat prescription; Z72.89 Other problems related to lifestyle
CPT/HCPCS: 36415; 80053; 82948; 85025; 96372; 99284; J1815

== ENCOUNTER 2025-04-05 15:01 | Emergency (ER) | payer MEDICAID ==
[~2025-04-05] VITALS: Ht 165.1 cm; Wt 45.7 kg
[~2025-04-05 15:01] MED LIST changes: +ALBU18HF2 INH; -LEVO-65 PO; +SPIR50TA5 PO
--- NOTE | 2025-04-05 15:10 | ELECTROCARDIOGRAPH REPORT ---
[facility] Test Date: 2025-04-05 Test Time: 15:08:48 Pat Name: PIPPA ARREOLA Department: EMERGENCY ROOM Patient ID: [id number] Room: Gender: F Shirt Hemmer: ELENA : 1965 Requested By: LINDA SUAREZ Order Number: [id number] Reading MD: Dr. Devang Lott Measurements Intervals [place] Rate: 96 P: -58 AK: 125 QRS: 80 QRSD: 71 T: 72 QT: 374 QTc: 473 Interpretive Statements Ectopic atrial rhythm Baseline wander in lead(s) II,aVR Electronically Signed On 04-08-2025 9:40:[address] Devang Lott Please click the below link to view image of tracing.
--- NOTE | 2025-04-05 15:28 | RADIOLOGY REPORT ---
CLINICAL INFORMATION: Chest pain. TECHNIQUE: Single AP portable chest radiograph was obtained. COMPARISON: DI CHEST,SINGLE VIEW on DOS: 01/28/25, DI CHEST,SINGLE VIEW on DOS: 01/27/25, DI CHEST,SINGLE VIEW on DOS: 01/26/25 FINDINGS: Lungs: Hyperaeration of the lungs with flattening of the diaphragm suggesting emphysematous changes. Lungs are otherwise clear. Cardiac: Heart size is within normal limits. Pulmonary vasculature: Unremarkable. Mediastinum/kishor: Unremarkable. Bones: No acute osseous abnormality identified. Other: No other significant findings. IMPRESSION: 1. No evidence of acute disease in the chest. 2. Findings suggesting emphysematous changes as described above.
[2025-04-05 15:29] LABS: MEAN PLATELET VOLUME 8.6 FL (7.4-10.4); RED CELL DISTRIBUTION WIDTH 14.5 % (11.5-14.5)
--- NOTE | 2025-04-05 15:44 | Physician Documentation ---
History of Present Illness ~ Chief Complaint: Chest Pain Stated Complaint: CHEST PAIN Time Seen by MD: 16:50 OK to notify your PCP?: Yes Primary Medical Doctor: Pt declined to answer Source: patient Mode of Arrival: POV Exam Limitations: no limitations HEART Score: 2 HPI This is a 59-year-old female with cirrhosis who presents with right-sided chest pain described as sharp, patient reports that it wraps around to her right back x 4weeks. Symptoms come and go. No relationship to po intake. No relationship to position or body position. Patient reports cough and shortness of breath as well as nausea. Patient reports she came to ER today to just make sure she does not need her lungs drained as last time she had this pain she reports she had to get a thoracentesis. She states she is working with her PCP on her diabetes. Patient reports no cardiac history. Patient reports no other acute symptoms or concerns. No abdominal pain, constipation, diarrhea, fever, chills. Medication Reconciliation Allergies: Coded Allergies: No Known Allergies (Unverified , 04/05/25) Scheduled Atorvastatin Calcium (Atorvastatin Calcium), 1 TAB PO DAILY, (Reported) Furosemide (Furosemide), 1 TAB PO BID Insulin Glargine,Hum.rec.anlog (Basaglar Kwikpen U-100), 30 UNIT SQ QDD Insulin Glargine,Hum.rec.anlog (Basaglar Kwikpen U-100), 30 UNITS SQ DAILY Insulin Lispro (Humalog Onur Kwikpen), 5 UNITS SQ before meals Lactobacillus Casei/Folic Acid (Restora Rx Capsule), 1 CAP PO DAILY Lisinopril (Lisinopril), 1 TAB PO DAILY, (Reported) Nicotine 14 MG Patch* (Habitrol 14 MG Patch*), 1 PATCH TD DAILY Spironolactone (Spironolactone), 1 TAB PO DAILY, (Reported) Spironolactone (Spironolactone), 1 TAB PO BID Scheduled PRN Albuterol Sulfate (Ventolin Hfa), 2 PUFFS INH Q4HPRN PRN for SOB or wheezing Past Medical History Past Medical History: Migraine, Cirrohsis, Hepatitis C, Diabetes, Arthritis, Chronic Pain, MRSA Abscess Past Surgical History: Patient History: FH: HTN (hypertension) MOTHER, , Age: 72 FH: diabetes mellitus MOTHER, , Age: 72 Thyroid disease MOTHER, , Age: 72 Alcohol Use: Occasionally Drug Use: marijuana, methamphetamine Lives with: Other Lives In: Homeless Occupation: unemployed Review of Systems All Other Systems at this time: Reviewed and Negative ROS As stated above in the HPI, otherwise all systems are reviewed and negative. Physical Exam Vital Signs: Temperature: 97.3, Source: Oral, Heart Rate: 89, Respiratory Rate: 18, BP: 137/89, Pulse Oximetry: 99, Weight: 45.700 Oxygen Flow Rate: 0 Physical Exam GENERAL: Alert, no acute distress. HEENT: NCAT, EOMI, PERRL, normal oropharynx, moist oral mucosa. NECK: Supple, trachea midline. CARDIAC: Regular rate and rhythm, no murmurs, rubs, or gallops. Equal distal pulses. No lower extremity edema, cap refill less than 2 seconds. RESPIRATORY: Equal breath sounds, clear to auscultation bilaterally, no respiratory distress. GASTROINTESTINAL: Non distended, soft, nontender, No guarding or rebound. MUSCULOSKELETAL: Normal range of motion, nontender, no swelling. Normal gait. NEUROLOGICAL: Awake, alert, and oriented x 3. SKIN: Warm/dry, no pallor, no rash. PSYCH: Alert and appropriate. Affect congruent with mood. Speech is clear. Good eye contact. Progress Results/Orders Reviewed/noted all lab results: Yes Results/Orders Orders - SHIRA JEROME General Nursing Order (04/05/25 18:13) Completed Orders - SHIRA JEROME * Blood Glucose Assessment * ACHS (04/05/25 18:13) Vital Signs 04/05/25 04/05/25 04/05/25 04/05/25 15:06 16:33 16:43 19:01 Temp 97.3 97.9 Pulse 89 89 86 Resp 18 14 18 17 B/P (MAP) 137/89 151/94 (113) 155/85 Pulse Ox 99 98 98 O2 Flow Rate 0 0 Laboratory Tests Test 04/05/25 15:12 04/05/25 17:03 04/05/25 18:57 White Blood Count 6.3 Red Blood Count 4.45 Hemoglobin 13.2 Hematocrit 38.6 Mean Corpuscular Volume 86.8 Mean Corpuscular Hemoglobin 29.6 Mean Corpuscular Hemoglobin Concent 34.1 Red Cell Distribution Width 14.5 Platelet Count 111 L Mean Platelet Volume 8.6 Neutrophils (%) (Auto) 77.8 H Lymphocytes (%) (Auto) 16.2 L Monocytes (%) (Auto) 4.0 Eosinophils (%) (Auto) 1.1 Basophils (%) (Auto) 0.9 Neutrophils # (Auto) 4.9 Lymphocytes # (Auto) 1.0 L Monocytes # (Auto) 0.3 Eosinophils # (Auto) 0.1 Basophils # (Auto) 0.1 CBC Comment Sodium Level 134 L Potassium Level 4.4 Chloride Level 101 Carbon Dioxide Level 26.0 Anion Gap 7 L Blood Urea Nitrogen 13 Creatinine 0.75 Estimated GFR/1.73 m2 80 BUN/Creatinine Ratio 17.3 Glucose Level 411 *H Calcium Level 8.3 L Troponin I High Sensitivity 5 6 Pro-B-Type Natriuretic Peptide 81 Albumin 2.7 L Chemistry Comments Troponin I High Sens Percent Delta 20 Troponin I Hi Sens Absolute Change 1 Glucometer 291 H Heart Score: Heart Score Response (Comments) Value History Slightly Suspicious 0 EKG Normal 0 Age 45-64 1 Risk Factors 1 or 2 risk factors 1 Troponin Normal limit 0 Total 2 Medical Decision Making Additional information obtaine: old records Findings MSE performed in triage and patient returned to ED lobby by nursing staff to await available ED room. Patient is hemodynamically stable and ACS workup initiated. Heart Score: 2 Differential Dx:Considerations: Include: angina, aortic dissection, chest wall pain, cholelithiasis, CHF, costochondritis, esophageal reflux/spasm, gastritis, herpes zoster, myocardial infarction, pericarditis, pleuritis, pancreatitis, pneumonia, pneumothorax, pulmonary embolus, other Additional Information Patient's chest x-ray does not show any significant pleural effusion, her labs are unremarkable. Patient's reason for coming to the ER today was to make sure she did not need thoracentesis and there was no evidence that she would benefit from this as there is no significant pleural effusion. I did not I do not feel it was necessary to repeat troponins as her symptoms have been ongoing for several weeks and unchanged in severity. Departure Time of Disposition: 18:15 Disposition: 01 HOME / SELF CARE / HOMELESS Impression: Primary Impression: Chest pain Qualified Codes: R07.82 - Intercostal pain Condition: Stable Discharge Instructions: Nonspecific Chest Pain, Adult Additional Instructions: YOUR GLUCOSE WAS ELEVATED BUT THIS APPEARS TO BE ONGOING AND YOUR BASELINE THE REST OF YOUR LABS WERE WITHIN RANGE I DID NOT GIVE YOU IV FLUIDS BECAUSE THE SAFEST FOR YOU WITH YOUR ASCITES AND H/O PLEURAL EFFUSIONS IS TO ORALLY HYDRATE YOURSELF IF YOU HAVE WORSENING OF SYMPTOMS OR NEW CONCERNING SYMPTOMS RETURN TO ER F/U WITH PCP OVER YOUR DIABETES TREATMENT Referrals: NO PRIMARY CARE PROVIDER (PCP) Education Educated: Patient Educated regarding: diagnosis, treatment, need for follow up Signature Scribe Signature: x Attestation: KAY Gastelum Apr 05, 2025 15:44 SHIRA JEROME Apr 05, 2025 18:17
[2025-04-05 15:49] LABS: CREATININE 0.75 MG/DL (0.40-0.90); PRO BRAIN NATRIURETIC PEPTIDE 81 PG/ML (0-125); TOTAL CARBON DIOXIDE 26.0 MMOL/L (24-32); eCRCL 60 ML/MIN; eGFR 80 ML/MIN
--- NOTE | 2025-04-05 16:39 | RADIOLOGY REPORT ---
EXAM: DI CHEST,SINGLE VIEW HISTORY: CHEST PAIN TECHNIQUE: 1 view of the chest COMPARISON: DI CHEST,SINGLE VIEW on DOS: 04/05/25 FINDINGS/IMPRESSION: LUNGS: Small right-sided pleural effusion. Atelectasis in the right lung base. MEDIASTINUM: Unremarkable. BONES: No acute osseous abnormality. OTHER: None.
[2025-04-05 19:01] VITALS: BP 155/85; PULSE 86; RESP 17; TEMP 97.9; O2SAT 98
== END 2025-04-05 19:08 | disposition home or self-care (01) ==
LOC: ER 15:02
DX: R07.89 Other chest pain (principal); R05.9 Cough, unspecified; R06.02 Shortness of breath; Z79.899 Other long term (current) drug therapy
CPT/HCPCS: 36415; 71045; 80048; 82948; 83880; 84484; 85025; 93005; 99285